=== PATIENT | female | born 1935 | race Caucasian/White ===

== ENCOUNTER 2020-03-15 11:52 | Inpatient (IN) | payer OTHER ==
--- NOTE | 2020-03-18 14:01 | R.PREADM ---
PRE-ADMISSION SCREENING FORM SCREENING DATE AND TIME 03/18/2020 11:22 (PICTURE FRAME MAKER) ANTICIPATED REHAB ADMISSION DATE 03/20/2020 REFERRING FACILITY [facility] REFERRAL DATE AND TIME 03/18/2020 11:22 (PICTURE FRAME MAKER) REFERRAL ROOM# [id number] ACUTE ADMIT DATE 03/16/2020 Previous Rehabilitation(s): No. 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 Caden Hayward M.D. MR# [id number] NAME MONTY PENALOZA ADDRESS [address] [facility] PHONE [facility] [id number] DATE OF 1935 AGE 84 SSN# [id number] GENDER female MARITAL STATUS RACE unknown race ADMIT FROM 02 - [facility] PRE-HOSPITAL LIVING SETTING 01 - Home (private home/apt. board/care, assisted living, detention, transitional living) HOME TYPE AND DETAILS Type of home: single family house # of levels in the residence: 1 # of steps within the residence: 0 # of steps to enter the residence: 0 PRE-HOSPITAL LIVING WITH Family/Relatives FAMILY SUPPORT Yes PRIMARY FAMILY CONTACT NAME Lucas Penaloza PRIMARY FAMILY CONTACT PHONE PRIMARY FAMILY CONTACT RELATIONSHIP Spouse PHONE PRIMARY FAMILY CONTACT ON ADM.? no IS PRIMARY FAMILY CONTACT AUTH. REP.? no 1ST EMERGENCY CONTACT Lucas Penaloza 1ST CONTACT PHONE 1ST CONTACT RELATIONSHIP Spouse PHONE 1ST CONTACT ON ADM. no IS 1ST CONTACT AUTH. REP.? no PHONE 2ND CONTACT ON ADM.? no PATIENT EMPLOYMENT STATUS Retired (for age) PATIENT EMPLOYER No Employer PAYOR INFORMATION: 1ST PAYOR NAME MEDICARE 1ST PAYOR PHONE 1ST PAYOR INJURY/ILLNESS DUE TO ACCIDENT? No ANOTHER DEMOCRAT RESPONSIBLE? No PRIMARY REHAB/ACUTE DIAGNOSIS: LEFT HIP FRACTURE ONSET DATE 03/12/2020 REHAB IMPAIRMENT CATEGORY (GLADYS): 07 Fracture of LE (FracLE) MEETS 60% rule AFFECTED EXTREMITIES: BLE PRIMARY DIAGNOSIS-RELATED SURGERIES: left hip hemiarthroplasty 03/13/20 SUMMARY OF ACUTE HOSPITALIZATION: Pt. is a 84 yo Right-handed female of unknown race. On 03/12/2020 she was admitted to [facility] with diagnosis CLOSED DISPLACED FX OF LEFT FEMORAL N RASHAD. Her impairment category is Orthopaedic Disorders 08 - Bilateral Hip Fractures (08.12). Pre-morbidly, Pt. was independent/mod-I in Safety Awareness, Social Cognition, and Self-Care; and she had good Sphincter Control, Transfers Control, and Endurance. Currently, she has deficits of Locomotion, Safety Awareness, Balance, Social Cognition, and Transfers Control. Pt. is now referred to [facility] for acute in-patient rehabilitation in order to maximize patient's functional independence in activities of daily living, strength, ROM, and mobi lity. Patient has realistic goal of being discharged at assistance level 7-Ind to reside at Home with Fami ly/Relatives. lashanda Penaloza is a 84 -year- old female that lives at home independently at home. She lives in a single story home with family help when needed. She has a history of HTN, HLD, chronic back pain 2/2 compression fracture, admitted for left hip fracture. Patient had closed displaced fracture of left femoral neck 03/12/20. The patient would most definitely benefit from acute inpatient rehab and has become severely debilitated and unable to live at her prior level of activity at home getting her stronger to be back living at home independently is our goal. It is reasonable and necessary for the patient to come to acute inpatient rehab for approximately 7-10 days in order to return to her prior level of care. She is now being transferred to [facility] Inpatient rehabilitation and is medically stable with relatively stable labs. She is now medically stable but in need of 24 hour nursing, doctor supervision and The patient is reasonably expected to participate in 3 hours of therapy a day/15 hours per week and receive care with intensive interdisciplinary approach. COVID-19 screening performed; spoke with patient via phone. Patient denies new onset of fever, cough, difficulty breathing, sore throat, body aches and non-allergy nasal congestion in the past 24 hours. Patient denies travel outside of [place] in the past 14 days. Patient denies any contact with someone who has a confirmed diagnosis of or is under investigation for COVID-19 in the past 14 days. Patient has been tested negative for COVID- 19. PAST MEDICAL HISTORY HYPERTENSION LEFT HIP PAIN HYPERLIPIDEMIA MYOCARDIAL INFARCTION PAST SURGICAL HISTORY: HYSTERECTOMY EYE SURGERY MEDICATION ALLERGIES: AMLODIPINE ENVIRONMENTAL ALLERGIES: - Substance Allergies None Known - Other Allergies None Known CODE STATUS: Full code WEIGHT/HEIGHT/BMI: WEIGHT 170 lbs HEIGHT 5' 3" BMI 30.1 DIET: - Diet Type Regular - Diet - Solid Texture Regular - Diet - Liquid Texture Regular - Tube Feed N/A REVIEW OF SYSTEMS: - Gen Alert and awake Lying in bed No apparent distress Oriented to: person, time, and place - Vital Signs Temperature: 97.5 F SBP/DBP: 144/64 Pulse: 75 Resp: 18 Vital signs stable, afebrile - CVS RRR VITAL SIGNS Temperature: 97.5 F SBP/DBP: 144/64 Pulse: 75 Resp: 18 Vital signs stable, afebrile MEDICATIONS/TREATMENT: Other- See attached MAR (Medication Administration Record). CURRENT SPHINCTER CONTROL: Pre-hospital bladder status: unspecified # of bladder accidents in the last 7 days prior to screenin Pre-hospital bowel status: unspecified # of bowel accidents in the last 7 days prior to screenin Last Bowel Movement Date: 03/15/2020 CURRENT LOCOMOTION STATUS: distance walked 2 feet USING RW DETAILED CURRENT FUNCTIONAL STATUS: - Bladder accident frequency: Ind - No accidents in the past 7 days - Bowel accident frequency: Ind - No accidents in the past 7 days - Walking score based on distance walked: 0(N/A) score based on distance walked: 1(<=50ft) - Wheelchair score based on distance traveled: 0(N/A) QI SCORES: - Self-Care A. Eating 03-Partial/moderate assistance B. Oral hygiene 03-Partial/moderate assistance C. Toileting hygiene 01-Dependent E. Shower/bathe self 01-Dependent F. Upper body dressing 03-Partial/moderate assistance G. Lower body dressing 01-Dependent H. Putting on/taking off footwear 88-Not attempted due to medical condition or safety concerns - Mobility A. Roll left and right 03-Partial/moderate assistance B. Sit to lying 03-Partial/moderate assistance C. Lying to sitting on side of bed 03-Partial/moderate assistance D. Sit to stand 03-Partial/moderate assistance E. Chair/yol-hu-pvpes transfer 03-Partial/moderate assistance F. Toilet transfer 02-Substantial/maximal assistance G. Car transfer 88-Not attempted due to medical condition or safety concerns I. Walk 10 feet 88-Not attempted due to medical condition or safety concerns J. Walk 50 feet with two turns 88-Not attempted due to medical condition or safety concerns K. Walk 150 feet 88-Not attempted due to medical condition or safety concerns L. Walking 10 feet on uneven surfaces 88-Not attempted due to medical condition or safety concerns M. 1 step (curb) 88-Not attempted due to medical condition or safety concerns N. 4 steps 88-Not attempted due to medical condition or safety concerns O. 12 steps 88-Not attempted due to medical condition or safety concerns P. Picking up object 88-Not attempted due to medical condition or safety concerns R. Wheel 50 feet with two turns 88-Not attempted due to medical condition or safety concerns S. Wheel 150 feet 88-Not attempted due to medical condition or safety concerns - Bladder and Bowel Bladder continence Bowel continence - Endurance Fair - Balance Fair - Safety Awareness Fair CURRENT FUNC. DEFICITS: Self-Care, Mobility, Endurance, Balance, and Safety Awareness CURRENT / PREVIOUS ASSISTIVE DEVICES: 3-in-1 Commode Rolling Walker Tub Bench HISTORY OF FALLS. HAS THE PATIENT HAD TWO OR MORE FALLS IN THE PAST YEAR OR ANY FALL WITH INJURY IN T HE PAST YEAR?: No PRIOR SURGERY. DID THE PATIENT HAVE MAJOR SURGERY DURING THE 100 DAYS PRIOR TO ADMISSION?: No THERAPY NOTES FROM ACUTE CARE: Attached. SPECIAL NEEDS: - Safety Concerns Skin breakdown precautions needed due to skin breakdown risk PRECAUTIONS: - Anterior Hip Precaution No abduction No active extension No adduction across midline No external rotation No hip flexion >90 degrees No internal rotation - Posterior Hip Precaution No adduction across midline No external rotation No hip flexion >90 degrees No internal rotation No wheel chair propulsion - Weight Bearing Precaution WBAT,LEFT , LE PATIENT NEEDS ACTIVE AND ONGOING THERAPEUTIC INTERVENTION OF MULTIPLE THERAPY DISCIPLINES, INCLUDING: - Dietary and Nutrition Adequate Nutrition. Nutritional Education. Nutritional Supplements. PATIENT NEEDS CLOSE MEDICAL SUPERVISION BY A REHABILITATION PHYSICIAN FOR: Coordination of Treatment Team PATIENT REQUIRES 24X7 REHAB NURSING FOR MEDICAL AND FUNCTIONAL MGT. OF THE FOLLOWING DEFICITS: Disease Management Medication Management Patient/Family Education Providing Safe Environment PATIENT REQUIRES INTENSIVE, COORDINATED INTERDISCIPLINARY APPROACH TO REHAB: Arranging Home Equipment/Services Discharge Planning Family Intervention/Training Electrical Checkout Mechanic/Case Management PATIENT REHAB POTENTIAL: Mildred PENALOZA is able and expected to receive 3 hours of individualized therapy daily on at least 5 of ever y 7 days Mildred PENALOZA's prognosis for significant practical improvement within a reasonable period of time appears Good Expected level of measurable improvement will be of a practical value to Mildred WOODSs functional capacit y or adaptations to impairments Has a viable Discharge Plan Medically appropriate; condition is sufficiently stable to participate in intensive rehab program DISCHARGE PLAN: - Estimated Length of Stay (days) 14. - Consensus on plan Discharge plan has been discussed with primary caregiver. Patient/Family is in agreement with the myrna n. Primary caregiver is in agreement with the plan. - Patient/Family Goals Return home independently. - Planned Living Setting Upon Discharge Home, to live with Family/Relatives. Transitional Living. RECOMMENDED CARE LEVEL: IRF RECOMMENDATION DETAILS: Recommended Admission to Comprehensive Rehabilitation Program to Increase Functional [place] SCREENER'S COMPLETENESS CONFIRMATION: - Screening Confirmation The patient data collection on this preadmission screening form is finished PHYSICIANS REVIEW AND ADMISSION DETERMINATION Admit - Based on my review of the Pre-Admission Screening results, in my medical judgment and experie nce, I concur with the findings and recommend admission to [facility], as this patient requires an IRF level of care. SIGNATURE PANEL: Watermelon Inspector - [electronically] signed by Wes Resendiz on 03/18/2020 at 11:22 (PICTURE FRAME MAKER) Watermelon Inspector - [electronically] signed by Rigo De León PT on 03/18/2020 at 12:56 (PICTURE FRAME MAKER) Physician Reviewer - [electronically] signed by Dr. Caden Hayward M.D. on 03/18/2020 at 14:01 (PICTURE FRAME MAKER )
--- OUTSIDE RECORDS SUMMARY | 2020-03-18 19:53 | XMS REPORT | Summary of Care ---
:1935 Author Organization [facility] - Health Address [address] [place] [address] Care Team Providers Name Role Phone MD Franco Primary Care Provider Encounter Details Date Type Department Care Team Description 02/11/2020 Orders Only [facility] Doctor Unassigned, No [address] [place] [address] [address] [place] [address] Allergies Active Allergy Reactions Severity Noted Date Comments Amlodipine Unknown - See comments 01/20/2015 documented as of this encounter (statuses as of 02/11/2020) Medications Medication Sig Dispensed Refills Start Date End Date Status aspirin (ASPIRIN LOW Take 81 mg by 0 Active DOSE) 81 mg EC tablet mouth daily. sodium chloride 1 gram Take 1 g by 0 Active tablet mouth 2 (two) times daily. cloNIDine 0.1 mg TAKE 1 TABLET BY 270 tablet 1 09/04/2019 Active tabletIndications: MOUTH THREE Essential hypertension TIMES A DAY carvediloL 12.5 mg Take 1 tablet by 270 tablet 3 09/04/2019 Active tabletIndications: mouth 3 (three) Essential hypertension times daily with meals. furosemide 40 mg Take 1 tablet by 90 tablet 1 09/04/2019 Active tabletIndications: mouth daily. Essential hypertension valsartan 160 mg Take 1 tablet by 90 tablet 1 09/23/2019 Active tabletIndications: mouth daily. Essential hypertension hydrALAZINE 25 mg Take 1 tablet by 90 tablet 2 09/23/2019 Active tabletIndications: mouth 2 (two) Hyperlipidemia, times daily. unspecified hyperlipidemia type lovastatin 20 mg TAKE 1 TABLET BY 90 tablet 1 09/23/2019 Active tabletIndications: MOUTH ONCE A DAY Hyperlipidemia, - MUST BE SEEN unspecified FOR FURTHER hyperlipidemia type REFILLS documented as of this encounter (statuses as of 02/11/2020) Active Problems Problem Noted Date Hypertensive urgency 09/23/2019 Chest pain 09/22/2019 Dermatitis 07/01/2019 Right knee pain 08/28/2016 Obesity (BMI 30-39.9) 04/06/2016 Weakness 04/06/2016 Left hip pain 02/11/2016 Essential hypertension 01/15/2015 Hyperlipidemia 01/15/2015 Anemia B twelve deficiency 01/15/2015 Malaise 01/15/2015 Fatigue 01/15/2015 Upper respiratory infection 01/15/2015 documented as of this encounter (statuses as of 02/11/2020) Immunizations Name Administration Dates Next Due Influenza High Dose 12/14/2018, 12/14/2016 Pneumococcal 13 Conjugate, PCV13 (Prevnar 13) 12/14/2016, Pneumococcal Polysaccharide, PPSV23 (PNEUMOVAX) 12/14/2018 documented as of this encounter Social History Tobacco Use Types Packs/Day Years Used Date Never Smoker Smokeless Tobacco: Never Used Alcohol Use Drinks/Week oz/Week Comments Yes 2 Glasses of wine 4.0 2 Cans of beer Sex Assigned at Date Recorded Not on file documented as of this encounter Last Filed Vital Signs Not on filedocumented in this encounter Plan of Treatment Date Type Specialty Care Team Description 02/11/2020 General Ophthalmologist Visit Phlebotomy Ewa Cisneros MD [address] [place] [address] [phone] Pob, Adc Lab Main Health Maintenance Due Date Last Done Comments Depression Screening 1947 DTaP,Tdap,and Td Vaccines (1 - Tdap) 1954 Zoster Recombinant Vaccine (SHINGRIX) 1985 (1 of 2) Osteoporosis Screening 2000 Medicare Wellness Visit 12/14/2017 12/14/2016 INFLUENZA VACCINE (#1) 2019 12/14/2018, 12/14/2016 PNEUMOCOCCAL VACCINES 65+ Completed 12/14/2018, 12/14/2016 , 02/22/2015 documented as of this encounter Procedures Procedure Name Priority Date/Time Associated Diagnosis Comme nts CONSENT/REFUSAL FOR Routine 02/11/2020 11:24 AM DIAGNOSIS AND TREATMENT 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 Medicare A & B ent [phone] [id number] [place] [address] COMMERCIAL COMMERCIAL [id number] 2009-Pres HMO/ PPO/POS NON-CONTRACT NON-CONTRACT ent GENERIC GENERIC documented as of this encounter
--- OUTSIDE RECORDS SUMMARY | 2020-03-18 19:53 | XMS REPORT | Summary of Care ---
:1935 Author Organization [facility] - Health Address [address] [place] [address] Care Team Providers Name Role Phone MD Franco Primary Care Provider Encounter Details Date Type Department Care Team Description 12/04/2019 Orders Only [facility] Doctor Unassigned, No [address] [facility] [place] [address] [address] [place] [address] Allergies Active Allergy Reactions Severity Noted Date Comments Amlodipine Unknown - See comments 01/20/2015 documented as of this encounter (statuses as of 12/22/2019) Medications Medication Sig Dispensed Refills Start Date [...] as of this encounter (statuses as of 12/22/2019) Active Problems Problem Noted Date Hypertensive urgency 09/23/2019 Chest pain 09/22/2019 Dermatitis 07/01/2019 Right knee pain 08/28/2016 Obesity (BMI 30-39.9) 04/06/2016 Weakness 04/06/2016 Left hip pain 02/11/2016 Essential hypertension 01/15/2015 Hyperlipidemia 01/15/2015 Anemia B twelve deficiency 01/15/2015 Malaise 01/15/2015 Fatigue 01/15/2015 Upper respiratory infection 01/15/2015 documented as of this encounter (statuses as of 12/22/2019) Immunizations Name Administration Dates Next Due Influenza [...] filedocumented in this encounter Plan of Treatment Health Maintenance Due Date Last Done Comments Depression Screening 1947 DTaP,Tdap,and Td Vaccines (1 - Tdap) 1954 Zoster Recombinant Vaccine (SHINGRIX) 1985 (1 of 2) Osteoporosis Screening 2000 Medicare Wellness Visit 12/14/2017 12/14/2016 INFLUENZA VACCINE (#1) 2019 12/14/2018, 12/14/2016 PNEUMOCOCCAL VACCINES 65+ Completed 12/14/2018, 12/14/2016 , 02/22/2015 documented as of this encounter Procedures Procedure Name Priority Date/Time Associated Diagnosis Comme nts REFERRAL- Routine 12/04/2019 12:01 AM CDT REQUEST/RESPONSE documented in this encounter Results Not on filedocumented in this encounter Insurance Payer Benefit Plan / Subscriber ID Effective Phone Address T ype Group Dates MEDICARE MEDICARE PART [id number] 2000-Pres [phone] Medicare A & B ent [phone] [id number] [place] [id number] COMMERCIAL COMMERCIAL [id number] 2009-Pres HMO/ PPO/POS NON-CONTRACT NON-CONTRACT ent GENERIC GENERIC documented as of this encounter
--- OUTSIDE RECORDS SUMMARY | 2020-03-18 19:54 | XMS REPORT | Summary of Care ---
:1935 Author Organization [facility] Address [address] [place] [address] Care Team Providers Name Role Phone MD Franco Primary Care Provider Reason for Visit Reason Comments LAB WORK Auth/Cert Status Reason Specialty Diagnoses / Procedures Referred By C ontact Referred To Contact Phlebotomy Diagnoses Hyposmolality syndrome Hyposmolality syndrome Adc Pob Lab Draw Procedures URINE Professional Office Building [address] [place] [address] , [address] [place] [address] Phone: Fax: Encounter Details Date Type Department Care Team Description 02/16/2020 Supervisor Covering And Lining Visit [facility] Ewa Cisneros MD [address] [place] [address] [place] [address] Hyposmolality syndrome; Professional Pob, Adc Lab Main Proteinuria, unspecified type; Office Building Hypopotassem ia; Phlebotomy Lab Secondary hyperparathyroidis m of renal origin; Professional Vitamin D defic iency; Office Building Stage 3 chronic kidney disea se, unspecified whether stage 3a or 3b CKD [address] [facility] , [address] [place] [address] Allergies Active Allergy Reactions Severity Noted Date Comments Amlodipine Unknown - See comments 01/20/2015 documented as of this encounter (statuses as of 02/16/2020) Medications Medication Sig Dispensed Refills Start Date [...] as of this encounter (statuses as of 02/16/2020) Active Problems Problem Noted Date Hypertensive urgency 09/23/2019 Chest pain 09/22/2019 Dermatitis 07/01/2019 Right knee pain 08/28/2016 Obesity (BMI 30-39.9) 04/06/2016 Weakness 04/06/2016 Left hip pain 02/11/2016 Essential hypertension 01/15/2015 Hyperlipidemia 01/15/2015 Anemia B twelve deficiency 01/15/2015 Malaise 01/15/2015 Fatigue 01/15/2015 Upper respiratory infection 01/15/2015 documented as of this encounter (statuses as of 02/16/2020) Immunizations Name Administration Dates Next Due Influenza [...] Assigned at Date Recorded Not on file COVID-19 Exposure Response Date Recorded In the last month, have you been in contact with No / Unsure 02/11/2020 11:24 AM FLASH OVEN OPERATOR someone who was confirmed or suspected to have Coronavirus / COVID-19? documented as of this encounter Last Filed Vital Signs Not on filedocumented in this encounter Nursing Notes Tavia Lu - 02/16/2020 7:45 AM CST Patient presented with specimen for drop-off and was identified by and name. Collection information/ total volume were documented accordingly. The [facility] on 02/16/20: 24 hour urine 1 Random urine Stool Swab Other T.v 2000 H OVEN OPERATOR documented in this encounter Plan of Treatment Health Maintenance Due Date Last Done Comments Depression Screening 1947 DTaP,Tdap,and Td Vaccines (1 - Tdap) 1954 Zoster Recombinant Vaccine (SHINGRIX) 1985 (1 of 2) Osteoporosis Screening 2000 Medicare Wellness Visit 12/14/2017 12/14/2016 INFLUENZA VACCINE (#1) 2019 12/14/2018, 12/14/2016 PNEUMOCOCCAL VACCINES 65+ Completed 12/14/2018, 12/14/2016 , 02/22/2015 documented as of this encounter Results Not on filedocumented in this encounter Visit Diagnoses Diagnosis Hyposmolality syndrome Hyposmolality and/or hyponatremia Proteinuria, unspecified type Hypopotassemia Secondary hyperparathyroidism of renal o rigin Secondary hyperparathyroidism (of renal origin) Vitamin D deficiency Unspecified vitamin D deficiency Stage 3 chronic kidney disease, unspecif ied whether stage 3a or 3b CKD documented in this encounter Insurance Payer Benefit Plan / Subscriber ID Effective Phone Address T ype Group Dates MEDICARE MEDICARE PART [id number] 2000-Pres [phone] Medicare A & B ent [phone] [id number] [place] [id number] COMMERCIAL COMMERCIAL [id number] 2009-Pres HMO/ PPO/POS NON-CONTRACT NON-CONTRACT ent GENERIC GENERIC documented as of this encounter
--- OUTSIDE RECORDS SUMMARY | 2020-03-18 19:54 | XMS REPORT | Summary of Care ---
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 [facility] Ewa Cisneros MD [address] [place] [address] [facility] [place] [place] [address] Hyposmolality syndrome (Primary Dx); Professional Pob, Adc Lab Main Proteinuria, unspecified type; Office Building Hypopotassem ia; Phlebotomy Lab Secondary hyperparathyroidis m of renal origin; Professional Vitamin D defic iency; Office Building Stage 3 chronic kidney disea se, unspecified whether stage 3a or 3b CKD [address] [facility] , [address] [place] [address] Allergies Active Allergy Reactions Severity [...] with No / Unsure 02/11/2020 11:24 AM 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 documented as of this encounter Last Filed Vital Signs Not on filedocumented in this encounter Nursing Notes Garrett Menezes - 02/11/2020 11:30 AM CST Venipuncture collection performed by clean technique on the left anticubitus. Total of 1 attempts were made. Slight pressure and a bandage/dressing were applied to the site(s). The patient experienced no complications. The following specimens were processed according to instructions and sent to [email or web address] laboratories per lab order on today: LT BLUE SST 3 RED LAV PPT DK GREEN (LiHep) DK GREEN (SodH) COLEMAN DK BLUE (K2) DK BLUE (S) ACD Blood Culture NIPT/NTD Patient has been identified by and name and was provided with cup, antiseptic towelette, and clean catch instructions. 2 urine specimen(s) sent. Unpreserved 2 Urine Culture Aptima tube Other urine documented in this encounter Plan of Treatment Name Type Priority Associated Diagnoses Date/Ti me BASIC METABOLIC PANEL LAB Routine Hyposmolal ity syndrome 02/11/2020 11:49 AM (NA, K, CL, CO2, Proteinuria, un specified type CHROME PLATER GLUCOSE, BUN, Hypopotassemia CREATININE, CA) Secondary hyperparathyroi dism of renal origin Vitamin D defici ency Stage 3 chronic kidney disease, unspecified whether stage 3a or 3b CKD ALBUMIN LAB Routine [facility] 02/11/2020 11:49 AM Proteinuria, uns pecified type CHROME PLATER Hypopotassemia Secondary hyperparathyroidis m of renal origin Vitamin D defici ency Stage 3 chronic kidney disease, unspecified whether stage 3a or 3b CKD PHOSPHORUS LAB Routine [facility] 02/11/2020 11:49 AM Proteinuria, uns pecified type CHROME PLATER Hypopotassemia Secondary hyperparathyroidis m of renal origin Vitamin D defici ency Stage 3 chronic kidney disease, unspecified whether stage 3a or 3b CKD URIC ACID LAB Routine Hyposmolality [facility] 02/11/2020 11:49 AM Proteinuria, uns pecified type CHROME PLATER Hypopotassemia Secondary hyperparathyroidis m of renal origin Vitamin D defici ency Stage 3 chronic kidney disease, unspecified whether stage 3a or 3b CKD URINALYSIS LAB Routine Hyposmolality sy ndrome 02/11/2020 12:00 PM Proteinuria, uns pecified type CHROME PLATER Hypopotassemia Secondary hyperparathyroidis m of renal origin Vitamin D defici ency Stage 3 chronic kidney disease, unspecified whether stage 3a or 3b CKD TOTAL PROTEIN, URINE LAB Routine Hyposmolali ty syndrome 02/11/2020 12:00 PM RANDOM Proteinuria, uns pecified type CHROME PLATER Hypopotassemia Secondary hyperparathyroidis m of renal origin Vitamin D defici ency Stage 3 chronic kidney disease, unspecified whether stage 3a or 3b CKD CREATININE, URINE LAB Routine Hyposmolality syndrome 02/11/2020 12:00 PM RANDOM Proteinuria, uns pecified type CHROME PLATER Hypopotassemia Secondary hyperparathyroidis m of renal origin Vitamin D defici ency Stage 3 chronic kidney disease, unspecified whether stage 3a or 3b CKD INTACT PTH CALCIUM LAB Routine Hyposmolality syndrome 02/11/2020 11:49 AM GROUP Proteinuria, uns pecified type CHROME PLATER Hypopotassemia Secondary hyperparathyroidis m of renal origin Vitamin D defici ency Stage 3 chronic kidney disease, unspecified whether stage 3a or 3b CKD VITAMIN D, 25-OH LAB Routine Hyposmolality s yndrome 02/11/2020 11:49 AM Proteinuria, uns pecified type CHROME PLATER Hypopotassemia Secondary hyperparathyroidis m of renal origin Vitamin D defici ency Stage 3 chronic kidney disease, unspecified whether stage 3a or 3b CKD Name Type Priority Associated Diagnoses Order S chedule BASIC METABOLIC PANEL LAB Routine Hyposmolal ity syndrome Expected: (NA, K, CL, CO2, Proteinuria, un specified type 02/11/2020, GLUCOSE, BUN, Hypopotassemia Expires: CREATININE, CA) Secondary hyperparathyroi dism 02/10/2021 of renal origin Vitamin D defici ency Stage 3 chronic kidney disease, unspecified whether stage 3a or 3b CKD ALBUMIN LAB Routine Hyposmolality sy ndrome Expected: Proteinuria, uns pecified type 02/11/2020, Hypopotassemia Expires: Secondary hyperparathyroidis m 02/10/2021 of renal origin Vitamin D defici ency Stage 3 chronic kidney disease, unspecified whether stage 3a or 3b CKD PHOSPHORUS LAB Routine Hyposmolality sy ndrome Expected: Proteinuria, uns pecified type 02/11/2020, Hypopotassemia Expires: Secondary hyperparathyroidis m 02/10/2021 of renal origin Vitamin D defici ency Stage 3 chronic kidney disease, unspecified whether stage 3a or 3b CKD URIC ACID LAB Routine Hyposmolality sy ndrome Expected: Proteinuria, uns pecified type 02/11/2020, Hypopotassemia Expires: Secondary hyperparathyroidis m 02/10/2021 of renal origin Vitamin D defici ency Stage 3 chronic kidney disease, unspecified whether stage 3a or 3b CKD URINALYSIS LAB Routine Hyposmolality sy ndrome Expected: Proteinuria, uns pecified type 02/11/2020, Hypopotassemia Expires: Secondary hyperparathyroidis m 02/10/2021 of renal origin Vitamin D defici ency Stage 3 chronic kidney disease, unspecified whether stage 3a or 3b CKD TOTAL PROTEIN, URINE LAB Routine Hyposmolali ty syndrome Expected: RANDOM Proteinuria, uns pecified type 02/11/2020, Hypopotassemia Expires: Secondary hyperparathyroidis m 02/10/2021 of renal origin Vitamin D defici ency Stage 3 chronic kidney disease, unspecified whether stage 3a or 3b CKD CREATININE, URINE LAB Routine Hyposmolality syndrome Expected: RANDOM Proteinuria, uns pecified type 02/11/2020, Hypopotassemia Expires: Secondary hyperparathyroidis m 02/10/2021 of renal origin Vitamin D defici ency Stage 3 chronic kidney disease, unspecified whether stage 3a or 3b CKD MICROALBUMIN URINE LAB Routine Hyposmolality syndrome Expected: Proteinuria, uns pecified type 02/11/2020, Hypopotassemia Expires: Secondary hyperparathyroidis m 02/10/2021 of renal origin Vitamin D defici ency Stage 3 chronic kidney disease, unspecified whether stage 3a or 3b CKD INTACT PTH CALCIUM LAB Routine Hyposmolality syndrome Expected: GROUP Proteinuria, uns pecified type 02/11/2020, Hypopotassemia Expires: Secondary hyperparathyroidis m 02/10/2021 of renal origin Vitamin D defici ency Stage 3 chronic kidney disease, unspecified whether stage 3a or 3b CKD VITAMIN D, 25-OH LAB Routine Hyposmolality s yndrome Expected: Proteinuria, uns pecified type 02/11/2020, Hypopotassemia Expires: Secondary hyperparathyroidis m 02/10/2021 of renal origin Vitamin D defici ency Stage 3 chronic kidney disease, unspecified whether stage 3a or 3b CKD OSMOLALITY URINE LAB Routine Hyposmolality s yndrome Expected: Proteinuria, uns pecified type 02/11/2020, Hypopotassemia Expires: Secondary hyperparathyroidis m 02/10/2021 of renal origin Vitamin D defici ency Stage 3 chronic kidney disease, unspecified whether stage 3a or 3b CKD SODIUM URINE LAB Routine Hyposmolality sy ndrome Expected: Proteinuria, uns pecified type 02/11/2020, Hypopotassemia Expires: Secondary hyperparathyroidis m 02/10/2021 of renal origin Vitamin D defici ency Stage 3 chronic kidney disease, unspecified whether stage 3a or 3b CKD POTASSIUM URINE LAB Routine Hyposmolality sy ndrome Expected: Proteinuria, uns pecified type 02/11/2020, Hypopotassemia Expires: Secondary hyperparathyroidis m 02/10/2021 of renal origin Vitamin D defici ency Stage 3 chronic kidney disease, unspecified whether stage 3a or 3b CKD Health Maintenance Due Date Last Done Comments [...] this encounter Visit Diagnoses Diagnosis Hyposmolality syndrome - Primary Hyposmolality and/or hyponatremia Proteinuria, unspecified type Hypopotassemia Secondary hyperparathyroidism of renal o rigin Secondary hyperparathyroidism (of renal origin) Vitamin D deficiency Unspecified vitamin D deficiency Stage 3 chronic kidney disease, unspecif ied whether stage 3a or 3b CKD documented in this encounter Insurance Payer Benefit Plan / Subscriber ID Effective Phone Address [facility] Group Dates MEDICARE MEDICARE PART [id number] 2000-Pres [phone] Medicare A & B ent [id number] [place] [id number] COMMERCIAL COMMERCIAL [id number] 2009- HMO/ PPO/POS NON-CONTRACT NON-CONTRACT ent GENERIC GENERIC documented as of this encounter
--- OUTSIDE RECORDS SUMMARY | 2020-03-18 19:54 | XMS REPORT | Summary of Care ---
:1935 Author Organization [facility] Address [address] [place] [address] Care Team Providers Name Role Phone MD Franco Primary Care Provider Reason for Visit Reason Comments LAB WORK Auth/Cert Status Reason Specialty Diagnoses / Procedures Referred By C ontact Referred To Contact Phlebotomy Diagnoses Hyposmolality syndrome Hyposmolality syndrome Adc Pob Lab Draw Procedures URINE Professional Office Building [address] [place] [address] , [address] [place] [address] Phone: Fax: Encounter Details Date Type Department Care Team Description 02/16/2020 Band 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 documented as of this encounter Last Filed Vital Signs Not on filedocumented in this encounter Nursing Notes Tavia Lu - 02/16/2020 7:45 AM CST Patient presented with specimen for drop-off and was identified by and name. Collection information/ total volume were documented accordingly. The following specimens were sent to [facility] laboratoriesper lab order on 02/16/20: 24 hour urine 1 Random urine Stool Swab Other T.v 2000 TAL PUBLISHING SPECIALIST documented in this encounter Plan of Treatment Name Type Priority Associated Diagnoses Date/Ti me SODIUM URINE LAB Routine Hyposmolality sy ndrome 02/16/2020 7:41 AM Proteinuria, uns pecified type DIGITAL PUBLISHING SPECIALIST Hypopotassemia Secondary hyperparathyroidis m of renal origin Vitamin D defici ency Stage 3 chronic kidney disea se, unspecified whether stage 3a or 3b CKD POTASSIUM URINE LAB Routine Hyposmolality sy ndrome 02/16/2020 7:41 AM Proteinuria, uns pecified type DIGITAL PUBLISHING SPECIALIST Hypopotassemia Secondary hyperparathyroidis m of renal origin Vitamin D defici ency Stage 3 chronic kidney disea se, unspecified [...] T ype Group Dates MEDICARE MEDICARE PART [id number] 2000-Pres [phone] Medicare A & B ent [id number] [place] [id number] COMMERCIAL COMMERCIAL [id number] 2009-Pres HMO/ PPO/POS NON-CONTRACT NON-CONTRACT ent GENERIC GENERIC documented as of this encounter
--- OUTSIDE RECORDS SUMMARY | 2020-03-18 19:54 | XMS REPORT | Summary of Care ---
:1935 Author Organization [facility] Address [address] [place] [address] Care Team Providers Name Role Phone MD Franco Primary Care Provider Reason for Visit Reason Comments LAB WORK Auth/Cert Status Reason Specialty Diagnoses / Procedures Referred By C ontact Referred To Contact Phlebotomy Diagnoses Hyposmolality syndrome Hyposmolality syndrome Adc Pob Lab Draw Procedures URINE Professional Office Building [address] [place] [address] , [address] [place] [address] Phone: Fax: Encounter Details Date Type Department Care Team Description 02/16/2020 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 [facility] Ewa Cisneros MD [address] [place] [address] [facility] [place] [address] Hyposmolality syndrome; Professional Pob, Adc Lab Main Proteinuria, unspecified type; Office Building Hypopotassem ia; Phlebotomy Lab Secondary hyperparathyroidis m of renal origin; Professional Vitamin D defic iency; Office Building Stage 3 chronic kidney disea se, unspecified whether stage 3a or 3b CKD [address] [facility] , [address] [place] [address] Allergies Active Allergy Reactions Severity [...] with No / Unsure 02/11/2020 11:24 AM 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 documented as of this encounter Last Filed Vital Signs Not on filedocumented in this encounter Nursing Notes Tavia Lu - 02/16/2020 7:45 AM CST Patient presented with specimen for drop-off and was identified by and name. Collection information/ total volume were documented accordingly. The following specimens were [facility] to [facility] laboratoriesper lab order on 02/16/20: 24 hour urine 1 Random urine Stool Swab Other T.v 2000 AGE HANDLER documented in this encounter Plan of Treatment Name Type Priority Associated Diagnoses Date/Ti me OSMOLALITY URINE LAB Routine Hyposmolality s yndrome 02/16/2020 7:41 AM Proteinuria, uns pecified type PACKAGE HANDLER Hypopotassemia Secondary hyperparathyroidis m of renal origin Vitamin D defici ency Stage 3 chronic kidney disea se, unspecified whether stage 3a or 3b CKD SODIUM URINE LAB Routine Hyposmolality sy ndrome 02/16/2020 7:41 AM Proteinuria, uns pecified type PACKAGE HANDLER Hypopotassemia Secondary hyperparathyroidis m of renal origin Vitamin D defici ency Stage 3 chronic kidney disea se, unspecified whether stage 3a or 3b CKD POTASSIUM URINE LAB Routine Hyposmolality sy ndrome 02/16/2020 7:41 AM Proteinuria, uns pecified type PACKAGE HANDLER Hypopotassemia Secondary hyperparathyroidis m of renal origin [...] T ype Group Dates MEDICARE MEDICARE PART [id number] 2000-Pres [phone] Medicare A & B ent [id number] [place] [id number] COMMERCIAL COMMERCIAL [id number] 2009-Pres HMO/ PPO/POS NON-CONTRACT NON-CONTRACT ent GENERIC GENERIC documented as of this encounter
--- OUTSIDE RECORDS SUMMARY | 2020-03-18 19:54 | XMS REPORT | Summary of Care ---
:1935 Author Organization [facility] Address [address] [place] [address] Care Team Providers Name Role Phone MD Franco Primary Care Provider Reason for Visit Reason Comments LAB WORK Encounter Details Date Type Department Care Team Description 02/16/2020 Spa Receptionist Visit [facility] Ewa Cisneros MD [address] [place] [address] [place] [address] Hyposmolality syndrome; Professional Pob, Adc Lab Main Proteinuria, unspecified type; Office Building Hypopotassem ia; Phlebotomy Lab Secondary hyperparathyroidis m of renal origin; Professional Vitamin D defic iency; Office Building Stage 3 chronic kidney disea se, unspecified whether stage 3a or 3b CKD [address] [place] [address] , [address] [place] [address] Allergies Active Allergy Reactions Severity [...] with No / Unsure 02/11/2020 11:24 AM 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 documented as of this encounter Last Filed Vital Signs Not on filedocumented in this encounter Nursing Notes Tavia Lu - 02/16/2020 7:45 AM CST Patient presented with specimen for drop-off and was identified by and name. Collection information/ total volume were documented accordingly. The following specimens were sent to [facility] laboratoriesper lab order on 02/16/20: 24 hour urine 1 Random urine Stool Swab Other T.v 2000 TEACHER documented in this encounter Plan of Treatment Name Type Priority Associated Diagnoses Date/Ti me MICROALBUMIN URINE LAB Routine Hyposmolality syndrome 02/16/2020 7:41 AM Proteinuria, uns pecified type SLP TEACHER Hypopotassemia Secondary hyperparathyroidis m of renal origin Vitamin D defici ency Stage 3 chronic kidney disea se, unspecified whether stage 3a or 3b CKD OSMOLALITY URINE LAB Routine Hyposmolality s yndrome 02/16/2020 7:41 AM Proteinuria, uns pecified type SLP TEACHER Hypopotassemia Secondary hyperparathyroidis m of renal origin Vitamin D defici ency Stage 3 chronic kidney disea se, unspecified whether stage 3a or 3b CKD SODIUM URINE LAB Routine Hyposmolality sy ndrome 02/16/2020 7:41 AM Proteinuria, uns pecified type SLP TEACHER Hypopotassemia Secondary hyperparathyroidis m of renal origin Vitamin D defici ency Stage 3 chronic kidney disea se, unspecified whether stage 3a or 3b CKD POTASSIUM URINE LAB Routine Hyposmolality sy ndrome 02/16/2020 7:41 AM Proteinuria, uns pecified type SLP TEACHER Hypopotassemia Secondary hyperparathyroidis m of renal origin [...] T ype Group Dates MEDICARE MEDICARE PART [id number] 2000-Pres [phone] Medicare A & B ent [id number] [place] [id number] COMMERCIAL COMMERCIAL [id number] 2009-Pres HMO/ PPO/POS NON-CONTRACT NON-CONTRACT ent GENERIC GENERIC documented as of this encounter
--- OUTSIDE RECORDS SUMMARY | 2020-03-18 19:55 | XMS REPORT | Summary of Care ---
:1935 Author Organization [facility] Address [address] [place] [address] Care Team Providers Name Role Phone MD Franco Primary Care Provider Reason for Visit Reason Comments HAVE NO APPETITE Hip Pain right rating a 1010 Encounter Details Date Type Department Care Team Description 03/08/2020 Office Visit [facility] Family Sammy Gamez MD Acute right-sided low Medicine - [place] [address] back pain without [address] sciatica (Primary Dx) [place] [phone] Allergies Active Allergy Reactions Severity Noted Date Comments Amlodipine Unknown - See comments 01/20/2015 documented as of this encounter (statuses as of 03/09/2020) Medications Medication Sig Dispensed Refills Start Date [...] SEEN unspecified FOR FURTHER hyperlipidemia type REFILLS methylPREDNISolone Take 21 tablets 21 Each 0 02/16/2020 Active (MEDROL, GILDA,) 4 mg by mouth tabletsIndications: SEE-INSTRUCTIONS Acute right-sided low . follow package back pain without directions sciatica oxyCODONE-acetaminophen Take 1 tablet by 20 tablet 0 1 Active 7.5-325 mg per mouth every 4 1 tabletIndications: acute (four) hours as pain needed for Pain for up to 7 days. Indications: acute pain Hospital, Clinic, or Other Ordered Dose Route Frequency Start Date End Date Status Facility Administered Medication Ketorolac Tromethamine 60 mg IM ONCE 03/08/20202020 Ended (TORADOL) injection syringe 60 mg documented as of this encounter (statuses as of 03/09/2020) Active Problems Problem Noted Date Hypertensive urgency 09/23/2019 Chest pain 09/22/2019 Dermatitis 07/01/2019 Right knee pain 08/28/2016 Obesity (BMI 30-39.9) 04/06/2016 Weakness 04/06/2016 Left hip pain 02/11/2016 Essential hypertension 01/15/2015 Hyperlipidemia 01/15/2015 Anemia B twelve deficiency 01/15/2015 Malaise 01/15/2015 Fatigue 01/15/2015 Upper respiratory infection 01/15/2015 documented as of this encounter (statuses as of 03/09/2020) Immunizations Name Administration Dates Next Due Influenza High Dose 12/10/2018, 12/11/2017, 12/14/2016 Influenza High Dose Quad 11/04/2019 Pneumococcal 13 Conjugate, PCV13 (Prevnar 12/10/2018, 2016, 02/22/2015 13) Pneumococcal Polysaccharide, PPSV23 12/14/2018 (PNEUMOVAX) documented as of this encounter Social History Tobacco Use Types Packs/Day Years Used Date Never Smoker Smokeless Tobacco: Never Used Alcohol Use Drinks/Week oz/Week Comments Yes 2 Glasses of wine 4.0 2 Cans of beer Sex Assigned at Date Recorded Not on file COVID-19 Exposure Response Date Recorded In the last month, have you been in contact with No / Unsure 02/16/2020 2:28 PM WASTE RECYCLER someone who was confirmed or suspected to have Coronavirus / COVID-19? documented as of this encounter Last Filed Vital Signs Vital Sign Reading Time Taken Comments Blood Pressure 160/70 03/08/2020 3:27 PM in severe pa in in WASTE RECYCLER right hip Pulse - - Temperature - - Respiratory Rate - - Oxygen Saturation - - Inhaled Oxygen - - Concentration Weight 71.7 kg (158 lb) 03/08/2020 3:27 PM WASTE RECYCLER Height - - Body Mass Index 27.99 02/16/2020 2:21 PM WASTE RECYCLER documented in this encounter Progress Notes Maxime Gamez MD - 03/08/2020 3:15 PM CST Cc: pain Low back Chief Complaint Patient presents with HAVE NO APPETITE Hip Pain right rating a 10/10 Stephanie [facility] is a 84 [facility] female. Pain low back, started midline, has shifted to the . [facility] neurosurgery appointment in 2 days Allergies Stephanie is allergic to amlodipine. Medications Outpatient Medications Prior to Visit Medication Sig Dispense Refill hydrALAZINE 25 mg tablet Take 1 tablet by mouth 2 (two) times daily. 90 tablet 2 lovastatin 20 mg tablet TAKE 1 TABLET BY MOUTH ONCE A DAY - MUST BE SEEN FOR FURTHER REFILLS 90 tablet 1 valsartan 160 mg tablet Take 1 tablet by mouth daily. 90 tablet 1 cloNIDine 0.1 mg tablet TAKE 1 TABLET BY MOUTH THREE TIMES A DAY 270 tablet 1 furosemide 40 mg tablet Take 1 tablet by mouth daily. 90 tablet 1 methylPREDNISolone (MEDROL, GILDA,) 4 mg tablets Take 21 tablets by mouth SEE- INSTRUCTIONS. followpackage directions 21 Each 0 carvediloL 12.5 mg tablet Take 1 tablet by mouth 3 (three) times daily with meals. 270 tablet 3 sodium chloride 1 gram tablet Take 1 g by mouth 2 (two) times daily. aspirin (ASPIRIN LOW DOSE) 81 mg EC tablet Take 81 mg by mouth daily. No facility-administered medications prior to visit. Histories Past Medical History: Diagnosis Date Hyperlipidemia Hypertension Left hip pain 02/11/2016 Past Surgical History: Procedure Laterality Date EYE SURGERY HYSTERECTOMY Social History Socioeconomic History Marital status: Spouse name: Not on file Number of children: Not on file Years of education: Not on file Highest education level: Not on file Occupational History Not on file Social Needs Financial resource strain: Not on file Food insecurity Worry: Not on file Inability: Not on file Transportation needs Medical: Not on file Non-medical: Not on file Tobacco Use Smoking status: Never Smoker Smokeless tobacco: Never Used Substance and Sexual Activity Alcohol use: Yes Alcohol/week: 4.0 standard drinks Types: 2 Glasses of wine, 2 Cans of beer per week Drug use: No Sexual activity: Not on file Lifestyle Physical activity Days per week: Not on file Minutes per session: Not on file Stress: Not on file Relationships Social connections Talks on phone: Not on file Gets together: Not on file Attends denominational service: Not on file Active member of club or organization: Not on file Attends meetings of clubs or organizations: Not on file Relationship status: Not on file Intimate partner violence Fear of current or ex partner: Not on file Emotionally abused: Not on file Physically abused: Not on file Forced sexual activity: Not on file Other Topics Concern Not on file Social History Narrative Retired- [employer] Family History Problem Relation Age of Onset Heart Mother Cancer Father Review of Systems Vital Signs BP (!) 160/70 | Wt 158 lb (71.7 kg) | BMI 27.99 kg/m Physical Exam Vitals signs reviewed. Constitutional: Appearance: Normal appearance. HENT: Head: Normocephalic. Neck: Musculoskeletal: Normal range of motion. Cardiovascular: Rate and Rhythm: Normal rate and regular rhythm. Pulses: Normal pulses. Heart sounds: Normal heart sounds. Pulmonary: Effort: Pulmonary effort is normal. Breath sounds: Normal breath sounds. Abdominal: General: Abdomen is flat. Musculoskeletal: Comments: Tender R lumhar to hip, no radiculopathy at present Skin: General: Skin is warm. Neurological: General: No focal deficit present. Mental Status: She is alert. Assessment/Plan Severe lumbar pain, NS consult, pain medication, toradol. This visit did not involve counseling and coordination that comprised more than 50% of the visit time. documented in this encounter Plan of Treatment Date Type Specialty Care Team Description 03/11/2020 Imm/Inj Visit [facility] Bubba Webster MD [address] [place], [place] [address] Preventive Medicine Nurse, Shefali Pob Immunization Health Maintenance Due Date Last Done Comments DTaP,Tdap,and Td Vaccines (1 - 1954 Tdap) Zoster Recombinant Vaccine 1985 (SHINGRIX) (1 of 2) Osteoporosis Screening 2000 Medicare Wellness Visit 12/14/2017 12/14/2016 Depression Screening 02/15/2021 02/16/2020 PNEUMOCOCCAL VACCINES 65+ Completed 12/14/2018, 12/10/2018 , 12/14/2016, Additional history exists INFLUENZA VACCINE Completed 11/04/2019, 12/10/2018, 12/11/2017, Additional history exists documented as of this encounter Results Not on filedocumented in this encounter Visit Diagnoses Diagnosis Acute right-sided low back pain without sciatica - Primary documented in this encounter Administered Medications Medication Order MAR Action Action Date Dose Rate Site Ketorolac Tromethamine Given 03/08/2020 4:16 PM 60 mg Right (TORADOL) injection WASTE RECYCLER Dorso gluteal-IM syringe 60 mg 60 mg, Intramuscular, ONCE, 1 dose, 03/08/20 at 1715, Routine documented in this encounter Insurance Payer Benefit Plan / Subscriber ID Effective Phone Address T ype Group Dates MEDICARE MEDICARE PART [id number] 2000-Pres [phone] Medicare A & B ent [id number] [place] [id number] COMMERCIAL COMMERCIAL [id number] 2009-Pres HMO/ PPO/POS NON-CONTRACT NON-CONTRACT ent GENERIC GENERIC documented as of this encounter"
--- OUTSIDE RECORDS SUMMARY | 2020-03-18 19:55 | XMS REPORT | Summary of Care ---
:1935 Author Organization [facility] Address [address] [place] [address] Care Team Providers Name Role Phone MD Franco Primary Care Provider Reason for Visit Reason Comments HAVE NO APPETITE Hip Pain right rating a 1010 Encounter Details Date Type Department Care Team Description 03/08/2020 Office Visit [facility] Family Sammy Gamez MD Acute right-sided low Medicine - [place] [address] back pain without [address] sciatica (Primary Dx) [place] [phone] Allergies Active Allergy Reactions [...] with No / Unsure 02/16/2020 2:28 PM FARE COLLECTOR someone who was confirmed or suspected to have Coronavirus / COVID-19? documented as of this encounter Last Filed Vital Signs Vital Sign Reading Time Taken Comments Blood Pressure 160/70 03/08/2020 3:27 PM in severe pa in in FARE COLLECTOR right hip Pulse - - Temperature - - Respiratory Rate - - Oxygen Saturation - - Inhaled Oxygen - - Concentration Weight 71.7 kg (158 lb) 03/08/2020 3:27 PM FARE COLLECTOR Height - - Body Mass Index 27.99 02/16/2020 2:21 PM FARE COLLECTOR documented in this encounter Progress Notes Maxime Gamez MD - 03/08/2020 3:15 PM CST Cc: pain Low back Chief Complaint Patient presents with HAVE NO APPETITE Hip Pain right rating a 10/10 Stephanie [facility] is a 84 [facility] female. Pain low back, started midline, has shifted to the . [facility] neurosurgery appointment in 2 days Allergies Stephanie [...] file Gets together: Not on file Attends temple service: Not on file Active member of [...] & General Bubba Webster MD [address] [place], [place] [address] Preventive Medicine Nurse, Shefali Pob Immunization Health [...] 4:16 PM 60 mg Right (TORADOL) injection FARE COLLECTOR Dorso gluteal-IM syringe 60 mg 60 mg, Intramuscular, ONCE, 1 dose, 03/08/20 at 1715, Routine documented in this encounter Insurance Payer Benefit Plan / Subscriber ID Effective Phone Address T ype Group Dates MEDICARE MEDICARE PART [id number] 2000-Pres [phone] Medicare A & B ent [phone] [id number] [place] [address] COMMERCIAL COMMERCIAL [id number] 2009-Pres HMO/ PPO/POS NON-CONTRACT NON-CONTRACT ent GENERIC GENERIC documented as of this encounter"
--- OUTSIDE RECORDS SUMMARY | 2020-03-18 19:55 | XMS REPORT | Summary of Care ---
:1935 Author Organization [facility] Address [address] [place] [address] Care Team Providers Name Role Phone MD Franco Primary Care Provider Reason for Visit Reason Comments Assessment pain in hip Encounter Details Date Type Department Care Team Description 03/03/2020 Telephone [facility] Family Sammy Gamez MD Assessment (pain in Medicine - [place] [address] hip) [address] [place] [address] Drive [address] [place], [place] [phone] [address] [phone] Allergies Active Allergy Reactions Severity Noted Date Comments Amlodipine Unknown - See comments 01/20/2015 documented as of this encounter (statuses as of 03/03/2020) Medications Medication Sig Dispensed Refills Start Date [...] follow package back pain without directions sciatica documented as of this encounter (statuses as of 03/03/2020) Active Problems Problem Noted Date Hypertensive urgency 09/23/2019 Chest pain 09/22/2019 Dermatitis 07/01/2019 Right knee pain 08/28/2016 Obesity (BMI 30-39.9) 04/06/2016 Weakness 04/06/2016 Left hip pain 02/11/2016 Essential hypertension 01/15/2015 Hyperlipidemia 01/15/2015 Anemia B twelve deficiency 01/15/2015 Malaise 01/15/2015 Fatigue 01/15/2015 Upper respiratory infection 01/15/2015 documented as of this encounter (statuses as of 03/03/2020) Immunizations Name Administration Dates Next Due Influenza High Dose 12/10/2018, 12/11/2017, 12/14/2016 Pneumococcal 13 Conjugate, PCV13 (Prevnar 12/10/2018, 2016, [...] with No / Unsure 02/16/2020 2:28 PM PROMOTIONAL MARKETING AGENT someone who was confirmed or suspected to have Coronavirus / COVID-19? documented as of this encounter Last Filed Vital Signs Not on filedocumented in this encounter Miscellaneous Notes Telephone Encounter - Magnolia Johnson, PRINCESS - 03/03/2020 2:34 PM CSTDIL notified of Dr. Gamez recommendation. Verbalized understanding. elephone Encounter - Trinh Mares - 03/03/2020 1:56 PM CSTDaughter inla of patient is returning nurse call. OTIONAL MARKETING AGENT Telephone Encounter - Magnolia Johnson LVN - 03/03/2020 1:51 PM CSTLeft message to call back. OTIONAL MARKETING AGENT Telephone Encounter - Maxime Gamez MD - 03/03/2020 1:43 PM CSTAleve would be a good addition elephone Encounter - Magnolia Johnson LVN - 03/03/2020 1:11 PM CSTPatient's daughter in law is calling concerned for patient. Reports she is still having pain and it is not relieved by the hydrocodone that was prescribed. Patient has appointment with specialist Dr. Gabriel in a couple weeks. She is wanting to know if with her medical condition Aleve is okay to take and if in addition to that you could prescribe an alternative such as tramadol to alleviate pain untilshe can be seen by specialist. Please review and advise. OTIONAL MARKETING AGENT Telephone Encounter - Venecia Reynolds - 03/03/2020 12:30 PM CSTPt daughter works here at [employer] as ELECTRICAL EQUIPMENT TECHNICIAN and she would like to speak w/nurse regarding her mother Hip pain before she leaves. documented in this encounter Plan of Treatment Health Maintenance Due Date Last Done Comments DTaP,Tdap,and Td Vaccines (1 - 1954 Tdap) Zoster Recombinant Vaccine 1985 (SHINGRIX) (1 of 2) Osteoporosis Screening 2000 Medicare Wellness Visit 12/14/2017 12/14/2016 INFLUENZA VACCINE (#1) 2019 12/10/2018, 12/11/2017, 12/14/2016 Depression Screening 02/15/2021 02/16/2020 PNEUMOCOCCAL VACCINES 65+ Completed 12/14/2018, 12/10/2018 , 12/14/2016, Additional history exists documented as of this encounter Results Not on filedocumented in this encounter Insurance Payer Benefit Plan / Subscriber ID Effective Phone Address T ype Group Dates MEDICARE MEDICARE PART [id number] 2000-Pres [phone] Medicare A & B ent [phone] [id number] [place] [address] COMMERCIAL COMMERCIAL [id number] 2009-Pres HMO/ PPO/POS NON-CONTRACT NON-CONTRACT ent GENERIC GENERIC documented as of this encounter
--- OUTSIDE RECORDS SUMMARY | 2020-03-18 19:55 | XMS REPORT | Summary of Care ---
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 Pob Lab Draw Procedures URINE Professional Office Building [address] [facility] [place] [address] Phone: Fax: Encounter Details Date Type Department Care Team Description 02/16/2020 Office Visit [facility] Family Sammy Gamez MD Acute right-sided low Medicine - [place] [address] back pain without [address] sciatica (Primary Dx) [place] [phone] Allergies Active Allergy Reactions [...] follow package back pain without directions sciatica HYDROcodone-acetaminophe Take 1 tablet by 28 tablet 0 02/16/20 20 Active n 7.5-325 mg per mouth every 6 0 tabletIndications: acute (six) hours as pain needed for Pain for up to 7 days. Indications: acute pain documented as of this encounter (statuses as [...] Date Never Smoker Smokeless Tobacco: Never Used Tobacco Cessation: Counseling Given: No Alcohol Use Drinks/Week oz/Week Comments Yes 2 Glasses of wine 4.0 2 Cans of beer Sex Assigned at Date Recorded Not on file COVID-19 Exposure Response Date Recorded In the last month, have you been in contact with No / Unsure 02/16/2020 2:28 PM ABRASIVE GRADER HELPER someone who was confirmed or suspected to have Coronavirus / COVID-19? documented as of this encounter Last Filed Vital Signs Vital Sign Reading Time Taken Comments Blood Pressure 195/53 02/16/2020 2:21 PM ABRASIVE GRADER HELPER Pulse 68 02/16/2020 2:21 PM ABRASIVE GRADER HELPER Temperature - - Respiratory Rate - - Oxygen Saturation - - Inhaled Oxygen Concentration - - Weight 74.8 kg (165 lb) 02/16/2020 2:21 PM ABRASIVE GRADER HELPER Height 160 cm (5' 3") 02/16/2020 2:21 PM ABRASIVE GRADER HELPER Body Mass Index 29.23 02/16/2020 2:21 PM ABRASIVE GRADER HELPER documented in this encounter Progress Notes Maxime Gamez MD - 02/16/2020 2:30 PM CST Cc: back pain Chief Complaint Patient presents with Back Pain lifted trash Sunday, 12/12 pain Stephanie Chairez is a 84 year old female. Picked up trash 3 days ago, hurt back, getting worse Allergies Stephanie is allergic to amlodipine. Medications [...] tablet by mouth daily. 90 tablet 1 carvediloL 12.5 mg tablet Take 1 tablet by mouth 3 (three) times daily with meals. 270 tablet 3 cloNIDine 0.1 mg tablet TAKE 1 TABLET BY MOUTH THREE TIMES A DAY 270 tablet 1 furosemide 40 mg tablet Take 1 tablet by mouth daily. 90 tablet 1 sodium chloride 1 gram tablet Take 1 [...] file Gets together: Not on file Attends christian service: Not on file Active member of [...] Review of Systems Vital Signs BP (!) 195/53 | Pulse 68 | Ht 5' 3" (1.6 m) | Wt 165 lb (74.8 kg) | BMI 29.23 kg/m Physical Exam Vitals signs reviewed. Constitutional: Appearance: Normal appearance. HENT: Head: Normocephalic and atraumatic. Right Ear: Tympanic membrane normal. Left Ear: Tympanic membrane normal. Neck: Musculoskeletal: Normal range of motion and neck supple. Cardiovascular: Rate and Rhythm: Normal rate and regular rhythm. Pulses: Normal pulses. Heart sounds: Normal heart sounds. Pulmonary: Effort: Pulmonary effort is normal. Breath sounds: Normal breath sounds. Musculoskeletal: Normal range of motion. Skin: General: Skin is warm and dry. Neurological: Mental Status: She is alert. Assessment/Plan Back pain, xray, hyrocodone, medrol pack This visit did not involve counseling and coordination that comprised more than 50% of the visit time. documented in this encounter Plan of Treatment Name Type Priority Associated Diagnoses Order S chedule XR LUMBAR SPINE 5 VW IMAGING Routine Acute right-sided lo w Expected: 02/16/2020, back pain without Expires: 1 04/18/2020 sciatica Health Maintenance Due Date Last Done Comments [...] sciatica - Primary documented in this encounter Insurance Payer Benefit Plan / Subscriber ID Effective Phone Address T ype Group Dates MEDICARE MEDICARE PART [id number] 2000-Pres [phone] Medicare A & B ent [phone] [id number] [place] [phone] COMMERCIAL COMMERCIAL [id number] 2009-Pres HMO/ PPO/POS NON-CONTRACT NON-CONTRACT ent GENERIC GENERIC (Home) [place] [address] documented as of this encounter
--- OUTSIDE RECORDS SUMMARY | 2020-03-18 19:55 | XMS REPORT | Summary of Care ---
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 Lab Draw Procedures URINE Professional Office Building [address] [facility] , [address] [place] [address] Phone: Fax: Encounter Details Date Type Department Care Team Description 02/16/2020 Hospital Encounter [facility] Maxime Gamez, Acute right-sided Mil Patrick MD low back pain Radiology [address] without sciatica [address] [place] [phone] Allergies Active Allergy Reactions Severity Noted Date Comments Amlodipine Unknown - See comments 01/20/2015 documented as of this encounter (statuses as of 02/17/2020) Medications Medication Sig Dispensed Refills Start Date [...] as of this encounter (statuses as of 02/17/2020) Active Problems Problem Noted Date Hypertensive urgency 09/23/2019 Chest pain 09/22/2019 Dermatitis 07/01/2019 Right knee pain 08/28/2016 Obesity (BMI 30-39.9) 04/06/2016 Weakness 04/06/2016 Left hip pain 02/11/2016 Essential hypertension 01/15/2015 Hyperlipidemia 01/15/2015 Anemia B twelve deficiency 01/15/2015 Malaise 01/15/2015 Fatigue 01/15/2015 Upper respiratory infection 01/15/2015 documented as of this encounter (statuses as of 02/17/2020) Immunizations Name Administration Dates Next Due Influenza [...] with No / Unsure 02/16/2020 2:28 PM WORM SORTER someone who was confirmed or suspected to have Coronavirus / COVID-19? documented as of this encounter Last Filed Vital Signs Not on filedocumented in this encounter Plan of Treatment Name Type Priority Associated Diagnoses Date/Ti me XR LUMBAR SPINE 5 VW IMAGING Routine Acute right-sided lo w 02/16/2020 3:27 PM WORM SORTER back pain without sciatica Name Type Priority Associated Diagnoses Order S chedule XR LUMBAR SPINE 5 VW IMAGING Routine Acute right-sided lo w ONCE for 1 Occurrences back pain without starting 1 04/18/2019 sciatica until 0 Health Maintenance Due Date Last Done Comments [...] Acute right-sided low back pain without sciatica documented in this encounter Insurance Payer Benefit Plan / Subscriber ID Effective Phone Address T ype Group Dates MEDICARE MEDICARE PART [id number] 2000-Pres [phone] Medicare A & B ent [id number] [place] [phone] COMMERCIAL COMMERCIAL [id number] 2009-Pres HMO/ PPO/POS NON-CONTRACT NON-CONTRACT ent GENERIC GENERIC documented as of this encounter
--- OUTSIDE RECORDS SUMMARY | 2020-03-18 19:55 | XMS REPORT | Summary of Care ---
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 Lab Draw Procedures URINE Professional Office Building [address] , [address] [place] [address] Phone: Fax: Encounter Details Date Type Department Care Team Description 02/16/2020 Office Visit [facility] Family Sammy Gamez MD Acute right-sided low Medicine - [place] [address] back pain without [address] sciatica (Primary Dx) [place] [phone] Allergies Active Allergy Reactions [...] with No / Unsure 02/16/2020 2:28 PM CLAY ARTISAN someone who was confirmed or suspected to have Coronavirus / COVID-19? documented as of this encounter Last Filed Vital Signs Vital Sign Reading Time Taken Comments Blood Pressure 195/53 02/16/2020 2:21 PM CLAY ARTISAN Pulse 68 02/16/2020 2:21 PM CLAY ARTISAN Temperature - - Respiratory Rate - - Oxygen Saturation - - Inhaled Oxygen Concentration - - Weight 74.8 kg (165 lb) 02/16/2020 2:21 PM CLAY ARTISAN Height 160 cm (5' 3") 02/16/2020 2:21 PM CLAY ARTISAN Body Mass Index 29.23 02/16/2020 2:21 PM CLAY ARTISAN documented in this encounter Progress Notes Maxime [...] file Gets together: Not on file Attends restorationism service: Not on file Active member of [...] T ype Group Dates MEDICARE MEDICARE PART [id number] 2000-Pres [phone] Medicare A & B ent [id number] [place] [phone] COMMERCIAL COMMERCIAL [id number] 2009-Pres HMO/ PPO/POS NON-CONTRACT NON-CONTRACT ent GENERIC GENERIC (Home) [place] [address] documented as of this encounter
--- OUTSIDE RECORDS SUMMARY | 2020-03-18 19:56 | XMS REPORT | Summary of Care ---
:1935 Author Organization [facility] Address [address] [place] [id number] Care Team Providers Name Role Phone MD Franco Primary Care Provider Reason for Visit Reason Comments Rx Concern/Question Depression Encounter Details Date Type Department Care Team Description 03/09/2020 Telephone [facility] Family Sammy Gamez MD Rx Concern/Question Medicine - [address] (Depression) [address] [place] [address] Drive [address] [place], [place] [phone] [address] [phone] Allergies Active Allergy Reactions Severity Noted Date [...] up to 7 days. Indications: acute pain mirtazapine 15 mg tablet Take 1 tablet by 30 tablet 1 03/09/19 21 Active mouth at bedtime. 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 documented as of this encounter Last Filed Vital Signs Not on filedocumented in this encounter Miscellaneous Notes Telephone Encounter - Martina Dc LVN - 03/09/2020 10:47 AM CSTPt has been notified of the medication that was ordered, directions and such. Rx sent to pharmacy. 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 Start Remeron 15mg qhs.#30 elephone Encounter - Rosita Carlisle - 03/09/2020 10:13 AM CSTPer patient she was seen yesterday by Dr. Gamez and she mentioned that she would like to get something for depression. Per patient her and Dr. Gamez started to discuss other thing and she thinks he may have forgotten about the prescription. Per patient she would like to speak to the nurse about the prescription.. Please call. documented in this encounter Plan of Treatment Date Type Specialty Care Team Description 03/11/2020 Imm/Inj Visit [facility] DarinBubba ragland MD [address] [place] [address] [phone] Preventive Medicine Nurse, Adc Pob Immunization Health Maintenance Due Date Last [...] T ype Group Dates MEDICARE MEDICARE PART [id number] 2000-Pres [phone] Medicare A & B ent [id number] [place] [id number] COMMERCIAL COMMERCIAL [id number] 2009-Pres HMO/ PPO/POS NON-CONTRACT NON-CONTRACT ent GENERIC GENERIC documented as of this encounter
--- OUTSIDE RECORDS SUMMARY | 2020-03-18 19:58 | XMS REPORT | Summary of Care ---
:1935 Author Organization [facility] - [facility] Address [address] [place] [id number] Care Team Providers Name Role Phone MD Franco Primary Care Provider Reason for Referral (Routine) Status Reason Specialty Diagnoses / Referred By Referred To Procedures Contact Contact New Request Orthopedic Surgery Diagnoses Closed displaced fracture of left femoral neck Kathleen Muñiz, Procedures CONSULT/REFERRAL [facility] [address] [place], [place] [address] Other (Routine) Status Reason Specialty Diagnoses / Referred By Referred To Procedures Contact Contact New Request Orthopedic Surgery Diagnoses Closed displaced fracture of left femoral neck Kathleen Muñiz Carmich ael, Procedures Discharge Follow-up: Specialty Provider LATASHA BRUNO; 2 Weeks MD Latasha Riley MD [id number] [place] [address] [phone] Phone: Fax: Radiology Services (Routine) Status Reason Specialty Diagnoses / Referred By Referred To Procedures Contact Contact New Request Diagnostic Diagnoses Closed displaced fracture of left femoral neck Damion Radiology Procedures XR PELVIS <3 VW Latasha Riley MD [address] [place] [address] Radiology Services (STAT) Status Reason Specialty Diagnoses / Referred By Referred To Procedures Contact Contact New Request Diagnostic Diagnoses Closed fracture of left hip, initial encounter Aylin Coyne Radiology Procedures XR CHEST 1 VW MD Lillie [id number] [place] [phone] Radiology Services (STAT) Status Reason Specialty Diagnoses / Referred By Referred To Procedures Contact Contact New Request Diagnostic Diagnoses Fall, initial encounter Ibikunle, Radiology Procedures XR FEMUR 2 VW LEFT Folusho F, TRACK MAINTAINER [address] [place] [address] Radiology Services (STAT) Status Reason Specialty Diagnoses / Referred By Referred To Procedures Contact Contact New Request Diagnostic Diagnoses Fall, initial encounter Ibikunle, Radiology Procedures XR HIPS 2 VW LEFT Folusho F, TRACK MAINTAINER [address] [place] [place] [phone] Reason for Visit Reason Comments Hip Pain Auth/Cert Status Reason Specialty Diagnoses / Referred By Referred To Procedures Contact Contact Emergency Medicine Diagnoses Closed Displaced Fracture of Left Femoral Neck [facility] [address] [place] [phone] Fax: Encounter Details Date Type Department Care Team Description 03/12/2020 - Hospital Encounter Acute Care for the Shruti, Valdezo F, TRACK MAINTAINER [address] [place] [phone] Closed displaced 03/18/2020 Elderly (MADDIE 11D) Aylin Coyne MD [id number] [place], [place] [phone] fracture of left [address] Kathleen Muñiz MD [id number] [place] [address] [phone] femoral neck [place], [place] [phone] Allergies Active Allergy Reactions Severity Noted Date Comments Amlodipine Rash 01/20/2015 documented as of this encounter (statuses as of 03/18/2020) Medications Medication Sig Dispensed Refills Start End Status Date Date aspirin (ASPIRIN LOW Take 81 mg by 0 Active DOSE) 81 mg EC tablet mouth daily. cloNIDine 0.1 mg TAKE 1 TABLET 270 tablet 1 09/04/19 Active tabletIndications: BY MOUTH THREE 20 Essential hypertension TIMES A DAY carvediloL 12.5 mg Take 1 tablet 270 tablet 3 09/04/19 Active tabletIndications: by mouth 3 20 Essential hypertension (three) times daily with meals. furosemide 40 mg Take 1 tablet 90 tablet 1 09/04/19 Active tabletIndications: by mouth 20 Essential hypertension daily. valsartan 160 mg Take 1 tablet 90 tablet 1 09/23/19 Active tabletIndications: by mouth 20 Essential hypertension daily. hydrALAZINE 25 mg Take 1 tablet 90 tablet 2 09/23/19 Active tabletIndications: by mouth 2 20 Hyperlipidemia, (two) times unspecified daily. hyperlipidemia type lovastatin 20 mg TAKE 1 TABLET 90 tablet 1 09/23/19 Active tabletIndications: BY MOUTH ONCE 20 Hyperlipidemia, A DAY - MUST unspecified BE SEEN FOR hyperlipidemia type FURTHER REFILLS mirtazapine 15 mg Take 1 tablet 30 tablet 1 03/09/19 Active tablet by mouth at 21 bedtime. enoxaparin 40 mg/0.4 inject 0.4 mL 11.2 mL 0 03/14/1904/11 Active mL under the skin injectionIndications: every 24 Closed displaced (twenty-four) fracture of left hours for 28 femoral neck days. sodium chloride 1 gram Take 1 tablet 30 tablet 1 03/19/19 Active tabletIndications: by mouth 21 Closed displaced daily. fracture of left femoral neck sodium chloride 1 gram Take 1 g by 0 03/12 Discontinued tablet mouth 2 (two) 021 (Patie nt times daily. Reporte d) methylPREDNISolone Take Each 0 02/16/20 D iscontinued (MEDROL, GILDA,) 4 mg tablets by (Therapy tabletsIndications: mouth completed) Acute right-sided low SEE-INSTRUCTIO back pain without NS. follow sciatica package directions oxyCODONE-acetaminophe Take 1 tablet 20 tablet 0 03/08/1910/04 Discontinued n 7.5-325 mg per by mouth every (Therapy tabletIndications: 4 (four) hours completed) acute pain as needed for Pain for up to 7 days. Indications: acute pain documented as of this encounter (statuses as of 03/18/2020) Active Problems Problem Noted Date Closed displaced fracture of left femoral neck Fall, initial encounter 03/12/2020 Overview: Added automatically from request for tyler brando [id number] Closed fracture of left hip, initial encounter Overview: Added automatically from request for tyler brando [id number] Hypertensive urgency 09/23/2019 Chest pain 09/22/2019 Dermatitis 07/01/2019 Right knee pain 08/28/2016 Obesity (BMI 30-39.9) 04/06/2016 Weakness 04/06/2016 Left hip pain 02/11/2016 Essential hypertension 01/15/2015 Hyperlipidemia 01/15/2015 Anemia B twelve deficiency 01/15/2015 Malaise 01/15/2015 Fatigue 01/15/2015 Upper respiratory infection 01/15/2015 documented as of this encounter (statuses as of 03/18/2020) Immunizations Name Administration Dates Next Due Influenza [...] been in contact with No / Unsure 03/12/2020 6:36 PM ADDRESSOGRAPH OPERATOR someone who was confirmed or suspected to have Coronavirus / COVID-19? documented as of this encounter Last Filed Vital Signs Vital Sign Reading Time Taken Comments Blood Pressure 193/67 03/18/2020 5:27 PM ADDRESSOGRAPH OPERATOR Pulse 69 03/18/2020 5:27 PM ADDRESSOGRAPH OPERATOR Temperature 36.7 C (98.1 F) 03/18/2020 5:27 PM ADDRESSOGRAPH OPERATOR Respiratory Rate 18 03/18/2020 5:27 PM ADDRESSOGRAPH OPERATOR Oxygen Saturation 95% 03/18/2020 5:27 PM ADDRESSOGRAPH OPERATOR Inhaled Oxygen Concentration - - Weight 77.1 kg (170 lb) 03/12/2020 6:37 PM ADDRESSOGRAPH OPERATOR Height - - Body Mass Index 30.11 02/16/2020 2:21 PM ADDRESSOGRAPH OPERATOR documented in this encounter Discharge Summaries Fatoumata Damian MD - 03/18/2020 12:[address] [facility] Team Discharge Summary Date of Service: 03/18/20 ADMIT DATE: 03/12/2020 DISCHARGE DATE: 03/18/20 ATTENDING MD: Antonino TARIQ MD: Nati PCP: Maxime Gamez REASON FOR ADMISSION Left hip pain FINAL DIAGNOSIS: (the reason, after study, for admitting the patient to the hospital) Closed L femoral neck fractures/p mechanical fall s/p L hip arthroplasty 03/13/20 SECONDARY DIAGNOSIS: (any diagnosis that, on this admission, required clinical evaluation, therapeutic treatment, diagnostic procedures, extended hospital stay, or additional nursing care/monitoring) Osteoporosis w/ fragility fracture Compression fracture of L3: Chronic low back pain 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 * Orders Placed This Encounter CONSULT ORTHOPAEDIC SURGERY Consult Adult Physical Therapy Consult Adult Occupational Therapy CONSULT/REFERRAL [facility] Orders Placed This Encounter CASE REQUEST: HIP HEMIARTHROPLASTY SIGNIFICANT LAB/X-RAYS: Lab results: CBC BMP PT/INR WBC (10*3/L) Date Value 03/18/2020 5.87 NA (mmol/L) Date Value 03/18/2020 125 (L) No results found for: PT RBC (10*6/L) Date Value 03/18/2020 2.56 (L) K (mmol/L) Date Value 03/18/2020 4.9 INR (no units) Date Value 03/13/2020 1.1 PLT (10*3/L) Date Value 03/18/2020 117 (L) CALCIUM (mg/dL) Date Value 03/18/2020 8.4 (L) HGB (g/dL) Date Value 03/18/2020 7.9 (L) CL (mmol/L) Date Value 03/18/2020 99 aPTT HCT (%) Date Value 03/18/2020 22.7 (L) BUN (mg/dL) Date Value 03/18/2020 30 (H) APTT Patient (Seconds) Date Value 03/12/2020 27 CREATININE (mg/dL) Date Value 03/18/2020 1.10 (H) GLUCOSE (mg/dL) Date Value 03/18/2020 92 CO2 TOTAL (mmol/L) Date Value 03/18/2020 24 X-ray results: Xr Chest 1 Vw Result Date: 03/13/2020 Impression: No acute cardiac pulmonary process. Xr Femur 2 Vw Left Result Date: 03/13/2020 Mildly impacted proximal femoral neck fracture Osteopenia. Preliminary Report Dictated by Resident: Nilo Monaco MD., have reviewed this study and agree with the above report. Xr Hips 2 Vw Left Result Date: 03/13/2020 Mildly impacted proximal femoral neck fracture Osteopenia. Preliminary Report Dictated by Resident: Nilo Monaco MD., have reviewed this study and agree with the above report. Xr Pelvis <3 Vw Result Date: 03/13/2020 Unremarkable left hip hemiarthroplasty change. Radiology study indicated for follow-up? No HOSPITAL COURSE: Stephanie Chairez is a 84 year old female with a PMH ofHTN and HLD who presentsafter a mechanical fall on her left side resulting in left femoral neck fracture. Orthoperformed L hip arthroplasty 03/13/2020. Given 1U pRBC for post-surgical anemia. Started on NaCl tablets for hyponatremia. Anemia and hyponatremia were improved and patient stable to discharge to rehab facility for further recovery. ITEMS FOR FOLLOW UP PROVIDER: (including pending labs/cultures/studies, anticipated problems, etc.) 1. Patient will need Lovenox 40mg subq daily for 28 days from her surgery (until 04/11/2020). If patient is discharged from rehab before this date, please prescribe patient Lovenox and instruct patient and family on how to self-administer 2. Patient was started on NaCl tablets, 1g daily for hyponatremia. Her acute hyponatremia to 115 wasthought to be due to post-surgical SIADH in the setting of known history of chronic hyponatremia. Please follow patient's BMP intermittently and adjust the NaCl supplement as needed. 3. Patient will need to follow up with orthopedics and bone health clinic approximately 2 weeks after discharge for continued post-surgical care and monitoring FUNCTIONAL STATUS: ambulate with assistance DISCHARGE CONDITION: fair COGNITIVE STATUS: cognitively intact DIET: regular ACTIVITY: as tolerated DISCHARGE MEDICATIONS: Current Discharge Medication List START taking these medications Details enoxaparin (LOVENOX) 40 mg inject 40 mg under the skin every 24 (twenty-four) hours. Qty: 11.2 mL, Refills: 0 Start date: 03/14/2020, End date: 04/11/2020 Associated Diagnoses: Closed displaced fracture of left femoral neck sodium chloride 1 g Take 1 g by mouth daily. Qty: 30 tablet, Refills: 1 Start date: 03/19/2020 Associated Diagnoses: Closed displaced fracture of left femoral neck CONTINUE these medications which have NOT CHANGED Details mirtazapine (REMERON) 15 mg Take 15 mg by mouth at bedtime. Qty: 30 tablet, Refills: 1 hydrALAZINE (APRESOLINE) 25 mg Take 25 mg by mouth 2 (two) times daily. Qty: 90 tablet, Refills: 2 Associated Diagnoses: Hyperlipidemia, unspecified hyperlipidemia type lovastatin 20 mg tablet TAKE 1 TABLET BY MOUTH ONCE A DAY - MUST BE SEEN FOR FURTHER REFILLS Qty: 90 tablet, Refills: 1 Associated Diagnoses: Hyperlipidemia, unspecified hyperlipidemia type valsartan (DIOVAN) 160 mg Take 160 mg by mouth daily. Qty: 90 tablet, Refills: 1 Associated Diagnoses: Essential hypertension carvediloL (COREG) 12.5 mg Take 12.5 mg by mouth 3 (three) times daily with meals. Qty: 270 tablet, Refills: 3 Associated Diagnoses: Essential hypertension cloNIDine 0.1 mg tablet TAKE 1 TABLET BY MOUTH THREE TIMES A DAY Qty: 270 tablet, Refills: 1 Associated Diagnoses: Essential hypertension furosemide (LASIX) 40 mg Take 40 mg by mouth daily. Qty: 90 tablet, Refills: 1 Associated Diagnoses: Essential hypertension aspirin 81 mg Take 81 mg by mouth daily. Discharge Orders CONSULT[facility]REFERRAL [facility] Requesting consult or referral? Referral Reason for referral - please evaluate and treat for: left femoral neck fracture s/p left hip hemiarthroplasty Regular Diet; Texture: Regular. Texture Regular. Diabetic: No Discharge Condition - Discharge Condition: FAIR Discharge Activity Discharge Activity: As Tolerated VTE Propylaxis- Was ordered during hospitalization Discharge Instructions Order Comments: 1. You were diagnosed with low sodium levels in your blood (hyponatremia). Please take 1g of Sodium Chloride pill every day. Follow up with a primary care doctor to monitor your sodium levels. He/she can adjust your Sodium pill as needed to make sure it is not too high or too low. 2. Follow up with your orthopedic surgeon Dr. Bruno in clinic in about 2 weeks. 3. Follow up with Dr. Calabrese in bone health clinic in about 2 weeks. 4. You will need a Lovenox (enoxaparin) injection to prevent blood clots for 28 days after your surgery. They can continue to give this injection at the Rehab facility. Discharge Follow-up: Specialty Provider LATASHA BRUNO; 2 Weeks Order Comments: left femoral neck fracture s/p left hip hemiarthroplasty To Provider: LAATSHA BRUNO [[id number]] Patient's Preferred Location: Unknown Discharge Disposition: Rehab, (ATX) When (Patients with risk for unplanned readmission score over 16 or those noted as Hospital Dependent should follow up within 7 days with PCP or primary DX specialist): 2 Weeks Risk of Unplanned Readmission:( Score greater than 16 indicates high risk) 17 WOUND CARE: none CODE STATUS: full code DISCHARGE: rehab facility FOLLOW-UP APPOINTMENT: 1. Bone clinic with Dr. Calabrese in 2 weeks 2. Ortho clinic with Dr. Bruno in 2 weeks 3. Follow up with PCP after discharge from rehabilitation facility PLAN FOR READMISSION: No Please call paging services at [phone] to contact Fatoumata Damian MD with any questions. Fatoumata Damian M.D., PGY-1 Department of Internal Medicine ESSOGRAPH OPERATOR Associated attestation - Kathleen Muñiz MD - 03/18/2020 6:30 PM CSTI saw and examined the patient on 03/18/2020 and agree with the resident's note as written by Dr. Damian. I actively participated in the decision-making process. Please see the resident's note for additional details. Better hyponatremia and cognition and RAFI and constipation--all improved. DC today.S/p RX for The primary encounter diagnosis was Closed displaced fracture of left femoral neck. Diagnoses of Fall, initial encounter, Closed fracture of left hip, initial encounter, and Angina pectoris with documented spasm were also pertinent to this visit. documented in this encounter Progress Notes Maria Alejandra Melchor RN - 03/18/2020 2:56 PM ADDRESSOGRAPH OPERATOR Care Management Discharge Disposition Note (DCDN) 5-2-1 Interventions: Disease specific education;Intensive medication reconciliation/management;Teachback;Clear discharge plan;Follow-up appointments 5-2-1 Providers: Physician;Nanny/Household Manager/Almond Sorter;Nurse 5-2-1 Patient Capacity Improvements: Transportation arrangements Discharge Plan for ongoing care and services: Rehabilitation Patient Choice completed for referred services: Yes Discussed with patient/patients family involved in decision making: Patient or family caregiver understands, and agrees with discharge plan Patient's family or support contact: Lucas Chairez (spouse) [phone] Discharge Plan: Rehabilitation Receiving facility was provided the following clinical documentation at discharge- CM Facesheet, Consult notes, Labs, Progress Notes, MAR: Yes DME location: Other DME location: Durable Medical Equipment: Home Health location: Discharge location(s): [facility] [address]- [address] [place], [place] () [phone] (F) [phone] Community resources/referrals made or provided to patient: Resources/Referrals: Mental Status: Alert & Oriented to Person,Place & Time Psychosocial issues and/or concerns resulting in patient being a high risk for re-admission: Manage ADL indepentdly: Yes Living Arrangement: Home Other living arrangement: Address of living arrangement: [address] [place] [id number] Funding Resources: Medicare A & B;Supplement/Secondary Has patient been referred to [facility]? Nursing informed of discharge plan: CHP referral sent? CM medication request completed (if appropriate): PCP: Yes Maxime Gamez Transportation: Wheelchair Van Prior authorization obtained for ambulance: Authorization number: CPT code: Discharge Medications Will the patient be able to obtain his medications? Yes Does the patient have transportation to to obtain the prescription medications? Yes CM Medication Request completed (if appropriate): Yes Expected discharge date: 03/18/20 Time: 1530 Name of RN informed: VERO Kuo Additional Information: [facility] ([phone]) will be picking the patient up in a specialty wheelchair [facility] discharge between 1530 and 1630. CM/SW Name & Contact number: VERO Phillips RN, BSN Patient Care Provider [facility]-Care Management [email or web address] Office: [phone] (not for patient use) The following information has been provided to the facility noted above: reason for the patient discharge or transfer; patients physical and psychosocial status; summary of care, treatment, servicesprovided to patient; and the patient progress toward goals. ESSOGRAPH OPERATOR Aylin Garcia, SUPERVISOR ESTERS AND EMULSIFIERS - 03/18/2020 2:05 PM CSTPhysical Therapy Progress Note: Discharge Recommendations: Therapy Needs and Potential: Patient would benefit from continued physical therapy services to address: decline in bed mobility decline in transfers decline in gait and/or balance decline in stair/step negotiation decreased strength decreased endurance Patient demonstrates good potential to improve and meet therapy goals with further physical therapy services. Patient appears motivated to improve their functional mobility and return to their previous levelof function. Patient demonstrates ability to tolerate atleast 60-90 minutes of physical therapy with active participation. Challenges to Home Transition: increased risk of falls decreased safety awareness environmental barriers Equipment recommendations: Rolling walker PAIN: denies pain PRECAUTIONS: Weight Bearing Precaution: WBAT, Left, LE General Precautions: PPE used:Gloves and Surgical mask, General, Fall, Posterior Hip Bracing/Cast present or required: Hip abduction wedge while in bed S: Patient agreeable to working with PT. O: Patient met Up in chair. Patient seen for the following: Bed mobility: Sit to supine: SBA/Setup Patient utilizing leg associate director finance during bed mobility Transfers: Sit to stand: SBA/Setup using Rolling Walker Stand to sit: SBA/Setup using Rolling Walker Static/dynamic standing balance: Good Verbal cueing provided for correct hand placement and correct use of AD Gait: Assisted patient with ambulation as follows: about 160 feet using Rolling Walker and SBA/Setup Patient presenting with Step-through gait pattern. Patient with minimal instability and no LOB. Patient with decreased B step length -- verbal cueing provided cued patient on postural adjustments and AD management Therapeutic exercise: patient educated in Compensatory techniques/adaptive strategies, Energy conservation, Fall prevention, General strengthening, Positioning, Safety awareness and Hip precautions., instructed patient in the following: ankle pumps, quad sets, heel slides, long arc quads, patient/caregiver demonstrates u nderstanding of instructions. After session, patient Semi reclined in bed with abduction wedge placed. Call melendez provided. A: Patient tolerated session well. Patient progressing toward goals . P: PT will - progress mobility. Total Timed Tx Codes in Minutes: 24 Min Total Treatment Time in Minutes:24 Min Aylin Garcia PTA Supervising PT Senait Ruby ESSOGRAPH OPERATOR Torsten Vang, OT - 03/18/2020 12:51 PM CSTOCCUPATIONAL THERAPY NOTE: Discharge Recommendations: Therapy Needs and Potential:- Patient would benefit from continued skilled occupational therapy services to address: Decline in basic activities of daily living, Decline in instrumental activities of daily living, Decreased strength, Decreased range of motion and Decreased endurance - Patient demonstrates good potential to improve and meet therapy goals with further skilled occupational therapy services. - Patient appears motivated to improve their B/IADLs and return to their previous level of function. - Patient demonstrates ability to tolerate at least 60-90 minutes of active participation in occupational therapy. - Patient able to follow commands: 1-step Yes, Multi-step Yes, Inconsistencies No Challenges to Home Transition:- Requires physical assistance for BADLS - Requires physical assistance for IADLS - Requires supervision or verbal cues for BADLS - Requires supervision or verbal cues for IADLS - Limited caregiver availability - Decreased safety awareness/judgement - Increased risk of falls - Environmental barriers Equipment Recommendations:Tub transfer bench and RW, hip kit Precautions: WB: WBAT L LE General: PPE Utilized: Gloves and Surgical mask, Fall and Posterior hip precautions Bracing: Hip abduction wedge S: Patient agreeable to participate in occupational therapy. I feel so much better today PAIN Pre-treatment: 3/10 pain at left leg. Post-treatment: 3/10 pain at left leg. reports taking pain meds and Repositioning Provided. O: Patient found semireclining in bed. Vital signs stable . Patient seen this date for the following: ADL Training Grooming: SBA/setup standing at sink UB Dressing: SBA/Setup LB Dressing: Min assist donning socks with AE Toilet Transfer: SBA/setup Toileting Hygiene: Min assist for cleanup and clothing management Patient maintains hip precautions throughout session. Patient educated about the following adaptive equipment: hip kit, Tub transfer bench. Handout issued, Yes. Patient educated about fall prevention and safety awareness. Handout issued, No. Patient educated about the following: Adaptive equipment , ADL training, Compensatory techniques/adaptive strategies, Fall prevention, General strengthening, Safety awareness and Hip precautions. Handout issued, No. - cued on AE for ADL's and hip precautions Patient left sitting upright in bedside chair with call melendez in reach. Vital signs stable and P[employer]ychair alarm engaged, nursing staff notified. A: Patient exhibited Good participation in therapy and responded well to treatment this session. Patient is progressing toward goal(s) 6. Met goals 1,2,3,4,5. Pain, Poor endurance and Persistent weakness remain(s) a limiting factor. Patient continues to present with Decreased independence with ADL, D ecreased functional ROM, Decreased strength/endurance for functional activity and Impaired safety awareness and will benefit from continued OT services to address above areas and improve functional status. P: Patient/Caregivier Education, Equipment recommendations, Daily living activities and Therapeutic exercises and update current goals to Mod I. GOAL(S): By discharge, patient will increase independence in daily living skills as follows: 1 Patient will perform 3 in 1 BSC transfer with CGA. 2 Patient will perform LB dressing with minimal assistance with AE. 3 Patient will complete grooming tasks with independence and CGA while standing at the sink. 4 Patient will complete toileting hygiene, including clothing management, with minimal assistance. 5 Patient will increase endurance for functional activity as evidenced by ability to sustain 20 minutes of active participation. 6 Patient/caregiver will verbalize/demonstrate understanding/proficiency in the following home programs: Adaptive equipment , ADL training, Compensatory techniques/adaptive strategies, Fall prevention,General strengthening, Safety awareness and Hip precautions Jesse LOUISE/Melissa Supervising OTR Faith Lowery Total Timed Treatment Codes: 56 Min Total Treatment Time: 56 Min eAylin esteban, SUPERVISOR [employer]ERS AND [employer]IERS - 03/18/2020 11:18 AM ADDRESSOGRAPH OPERATOR Physical Therapy Progress Note: Discharge Recommendations: Therapy Needs and Potential: Patient would benefit from continued physical therapy services to address: decline in bed mobility decline in transfers decline in gait and/or balance decline in stair/step negotiation decreased strength decreased endurance Patient demonstrates good potential to improve and meet therapy goals with further physical therapy services. Patient appears motivated to improve their functional mobility and return to their previous levelof function. Patient demonstrates ability to tolerate atleast 60-90 minutes of physical therapy with active participation. Challenges to Home Transition: increased risk of falls decreased safety awareness environmental barriers Equipment recommendations: Rolling walker PAIN: denies pain PRECAUTIONS: Weight Bearing Precaution: WBAT, Left, LE General Precautions: PPE used:Gloves and Surgical mask, General, Fall, Posterior Hip Bracing/Cast present or required: Hip abduction wedge while in bed S: Patient agreeable to working with PT. O: Patient met Up in chair. Patient seen for the following: Bed mobility: Sit to supine: SBA/Setup Patient utilizing leg associate director finance during bed mobility Transfers: Sit to stand: SBA/Setup using Rolling Walker Stand to sit: SBA/Setup using Rolling Walker Static/dynamic standing balance: Good Verbal cueing provided for correct hand placement and correct use of AD Gait: Assisted patient with ambulation as follows: about 180 feet using Rolling Walker and SBA/Setup Patient presenting with Step-through gait pattern. Patient with minimal instability and no LOB. Patient with decreased B step length -- verbal cueing provided cued patient on postural adjustments and AD management Therapeutic exercise: patient educated in Compensatory techniques/adaptive strategies, Energy conservation, Fall prevention, General strengthening, Positioning, Safety awareness and Hip precautions., instructed patient in the following: ankle pumps, quad sets, heel slides, long arc quads, patient/caregiver demonstrates u nderstanding of instructions. After session, patient Semi reclined in bed with abduction wedge placed. Call melendez provided. A: Patient tolerated session well. Patient progressing toward goals . P: PT will - progress mobility. Total Timed Tx Codes in Minutes: 57 Min Total Treatment Time in Minutes: 57 Min Aylin Garica PTA Supervising PT Senait Ruby Maria Alejandra Lomeli RN - 03/18/2020 7:59 AM CSTCARE MANAGEMENT PROGRESS NOTE CM met with patient at bedside regarding discharge planning. Patient expressed that she may want tojust go home rather than go to rehab facility. CM explained what kind of therapies were involved atinpatient rehab compared to home health PT/OT and the length of time she may spend at [facility]. Patient was concerned about the insurance covering the stay, and CM explained that insurance covers [facility] 100%. Patient is going to speak to her family and let CM know this morning if she still wants to go to [facility] or go home with home health PT/OT. CM to follow up this am Maria Alejandra Melchor RN, BSN Patient Care Provider [facility]-Care Management [email or web address] Office: [phone] (not for patient use) Aylin Yost PTA - 03/17/2020 1:51 PM CSTPhysical Therapy Progress Note: Discharge Recommendations: Therapy Needs and Potential: Patient would benefit from continued physical therapy services to address: decline in bed mobility decline in transfers decline in gait and/or balance decline in stair/step negotiation decreased strength decreased endurance Patient demonstrates good potential to improve and meet therapy goals with further physical therapy services. Patient appears motivated to improve their functional mobility and return to their previous levelof function. Patient demonstrates ability to tolerate atleast 60-90 minutes of physical therapy with active participation. Challenges to Home Transition: increased risk of falls decreased safety awareness environmental barriers Equipment recommendations: Rolling walker PAIN: denies pain PRECAUTIONS: Weight Bearing Precaution: WBAT, Left, LE General Precautions: PPE used:Gloves and Surgical mask, General, Fall, Posterior Hip Bracing/Cast present or required: Hip abduction wedge while in bed S: Patient agreeable to working with PT. O: Patient met Semi reclined in bed. Patient seen for the following: Bed mobility: Supine to sit: SBA/Setup Scooting to edge of bed: SBA/Setup Sit to supine: SBA/Setup Patient utilizing leg associate director finance during bed mobility Transfers: Sit to stand: SBA/Setup using Rolling Walker Stand to sit: SBA/Setup using Rolling Walker Static/dynamic standing balance: Good Verbal cueing provided for correct hand placement and correct use of AD Gait: Assisted patient with ambulation as follows: about 180 feet using Rolling Walker and SBA/Setup Patient presenting with Step-through gait pattern. Patient with minimal instability and no LOB. Patient with decreased B step length -- verbal cueing provided Patient with one standing rest break elicited by fatigue cued patient on postural adjustments and AD management Therapeutic exercise: patient educated in Compensatory techniques/adaptive strategies, Energy conservation, Fall prevention, General strengthening, Positioning, Safety awareness and Hip precautions., instructed patient in the following: ankle pumps, quad sets, heel slides, long arc quads, patient/caregiver demonstrates u nderstanding of instructions. After session, patient Semi reclined in bed with family present and abduction wedge placed. Call melendez provided. A: Patient tolerated session well. Patient progressing toward goals . P: PT will - progress mobility. Total Timed Tx Codes in Minutes: 40 Min Total Treatment Time in Minutes: 40 Min Aylin Garcia PTA Supervising PT Senait Ruby ESSOGRAPH OPERATOR Christopher Long PAC - 03/17/2020 8:33 AM CST ORTHO PROGRESS NOTE 03/17/2020 08:33 Procedure: s/p left hip hemiarthroplasty, 03/13/2019 CC: left hip pain SUBJECTIVE / EVENTS PAST 24 H SABINA overnight. Pt resting in chair upon visit. Pt reports minimal pain at this time. Pt reports no neurological changes to her LLE. Pt has no other c/o at this time. Pt denies any fever, chills, N/V/D, PRINGLE, or chest pain at this time. OBJECTIVE Temp: [36.7 C (98 F)-37.6 C (99.7 F)] Pulse: [65-73] Resp: [18-22] BP: (103-165)/(40-71) MAP (mmHg): [70-88] A&O, NAD CV: Normal peripheral perfusion Lungs: Normal respiratory effort Integument: Warm and dry Psychiatric: appropriate affect Musculoskeletal: LLE: - dressing intact, dried bloody discharge to dressing, replaced today. - motor intact FHL/EHL/TA/GS, SILT S/S/SP/DP/T distributions, palpable DP/PT pulses, brisk capillaryrefill in toes - (-) erythema, ecchymosis or discharge to LLE. - mild edema to left hip. - no pain with hip ROM. LABS CBC Recent Labs 03/17/20 0032 WBC 6.55 RBC 2.18* PLT 125* HGB 6.9* HCT 19.7* Imaging: No new imaging obtained at this time. ASSESSMENT & PLAN Stephanie Chairez is a 84 year old female s/p left hip hemiarthroplasty, 03/13/2019 Diet, pain control, medical management, and henning care (if applicable) per primary team. Appreciate assistance in this patient's care. Heme: Hgb: 6.9. Pt currently asymptomatic at this time. Would consider transfusion of 1 unit of pRBCdue to age and medical hx. ID: post-op abx completed Activity: WBAT LLE with posterior hip precautions x 6 weeks from date of operation. M/S: dressing exchanged today. Keep c/d/i till follow up. DVT prophylaxis: Recommend chemical DVT PPx from date of operation, Lovenox 40mg daily. Recommend SCD use while admitted Henning: none Dispo: No further orthopedic interventions planned at this time. Keep dressing c/d/i. Pt may follow up with Dr. Bruno, [facility] ortho, in 2 weeks from date of discharge for post-op follow up. Recommend 28 days of chemical DVT PPx from date of operation. Continue PT/OT at this time. Will continue to monitor at this time. Please call ortho with any further questions or concerns. Thank you for your assistance with the management and treatment of this patient Christopher Long PA-C 03/17/2020 08:33 [phone] Fatoumata Navarro MD - 03/17/2020 6:54 AM CST Brian Progress Note Date of Service: 03/17/2020 06:55 Chief Complaint: Left hip pain 24-HOUR EVENTS: - NAEO SUBJECTIVE: Ms. Chairez says she feels good overall. She says there is on pain on her left hip except very mild discomfort when she is moved from bed. She states having 2 BM yesterday. Denies headache, changes in vision, dizziness, vertigo, CP, palpitations, SOB, fever, chills. PHYSICAL EXAM: Vitals: 03/16/20 1619 03/16/20 1936 03/17/20 0035 03/17/20 0313 BP: (!) 158/46 (!) 160/48 (!) 165/45 (!) 140/40 BP Location: Left arm Left arm Left arm Left arm Patient Position: Supine Supine Supine Supine Pulse: 69 66 72 66 Resp: 18 22 18 18 Temp: 36.9 C (98.5 F) 37.2 C (99 F) 37.6 C (99.7 F) 37.5 C (99.5 F) TempSrc: Oral Oral Oral Oral SpO2: 95% 95% 92% 92% Weight: On room air Intake/Output Summary (Last 24 hours) at 03/17/2020 0655 Last data filed at 03/16/2020 2107 Gross per 24 hour Intake 740 ml Output 700 ml Net 40 ml General: alert and oriented x 4 (person, place, date/time and situation); no apparent distress Lungs: clear to auscultation bilaterally Cardio: S1, S2 normal; no murmurs, rubs or gallops, regular rate and rhythm Abdomen: soft; non-tender; non-distended; normoactive bowel sounds Extremities: No cyanosis, 1+ edema left ankle, no edema on right ankle, pulses palpable. Skin: no rashes. S/p hip arthroplasty dressing noted on left hip, clean borders, no bruises or ecchymoses noted on affected area. Bruises and ecchymoses noted on anterior forearms bilaterally from IVsites. 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 - Ortho following: "Lovenox 40mg daily for 28 days post-op. - PT/OT following: maximize independence and safety w/functional mobility; ambulation with rolling walker. 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 Patient is asymptomatic and VSS. RAFI and BMP changes may be post-surgical. - Repeat H&H, BMP tomorrow and reassess anticipated d/c - initiated on NaCl 1g PO TID - Blood Transfusion 1 unit ordered today Dispo Anticipated Discharge Date: tomorrow 03/18/20 Barriers to Discharge: hyponatremia, anemia Patient seen and discussed with Dr. Muñiz, Geriatrics faculty. Lu Reeves MS3 I personally examined the patient on 03/17/20 and have verified the MS3 medical student documentation and/or findings, including the history, physical exam, and medical decision making. Additionally, Deanne personally performed or re- performed the physical exam and medical decision making activities of this patient's evaluation and management service. Fatoumata Damian M.D., PGY-1 Department of Internal Medicine END OF DAILY PROGRESS NOTE Hospital Course Stephanie Chairez is a 84 year old female with a PMH ofHTN and HLD who presentsafter a mechanical fall on her left side resulting in left femoral neck fracture. Orthoperformed L hip arthroplasty 03/13/2020. Given 1U pRBC for post-surgical anemia. D/c planning - Lovenox 40mg daily for 28 days post-op - f/u with [facility] clinic (Dr. Calabrese) after discharge - f/u with ortho (Dr. Bruno) in 2 weeks Resolved Problems - Fever of uncertain etiology - Hyperkalemia ESSOGRAPH OPERATOR Associated attestation - Kathleen Muñiz MD - 03/17/2020 6:33 PM CST I saw and examined the patient on 03/17/2020 and agree with the resident's note as written by Dr. Damian. I actively participated in the decision-making process. Please see the resident's note for additional details. The current medical regimen is effective; continue present plan and medications for The primary encounter diagnosis was Closed displaced fracture of left femoral neck. Diagnoses of Fall, initial encounter, Closed fracture of left hip, initial encounter, and Angina pectoris with documented spasm were also pertinent to this visit. Hyponatremia, symptomatic anemia--transfuse--Hgb=6.9. do guiaic. K high--better. K (mmol/L) Date Value 03/17/2020 4.8 Recent Labs 03/17/20 0954 NA 119* Maria Alejandra Melchor, RN - 03/16/2020 4:00 PM CSTCARE MANAGEMENT PROGRESS NOTE CM met with patient and family at bedside to update them on discharge plan and timing of transfer [facility], [address] - 5th floor, [facility] [address], ph. [phone], fx. [phone]. Transfer is pending replenishment of sodium level and acceptance post labs. Most likely discharge tomorrow to rehab facility. Family and patient agreeable to this. Maria Alejandra Melchor RN, BSN Patient Care Provider [facility]-Care Management [email or web address] Office: [phone] (not for patient use) ESSOGRAPH OPERATOR Torsten Vang, OT - 03/16/2020 2:56 PM CSTOCCUPATIONAL THERAPY NOTE: Discharge Recommendations: Therapy Needs and Potential:- Patient would benefit from continued skilled occupational therapy services to address: Decline in basic activities of daily living, Decline in instrumental activities of daily living, Decreased strength, Decreased range of motion and Decreased endurance - Patient demonstrates good potential to improve and meet therapy goals with further skilled occupational therapy services. - Patient appears motivated to improve their B/IADLs and return to their previous level of function. - Patient demonstrates ability to tolerate at least 60-90 minutes of active participation in occupational therapy. - Patient able to follow commands: 1-step Yes, Multi-step Yes, Inconsistencies No Challenges to Home Transition:- Requires physical assistance for BADLS - Requires physical assistance for IADLS - Requires supervision or verbal cues for BADLS - Requires supervision or verbal cues for IADLS - Limited caregiver availability - Decreased safety awareness/judgement - Increased risk of falls - Environmental barriers Equipment Recommendations:Tub transfer bench and RW, hip kit Precautions: WB: WBAT L LE General: PPE Utilized: Gloves and Surgical mask, Fall and Posterior hip precautions Bracing: Hip abduction wedge S: Patient agreeable to participate in occupational therapy. I feel so much better today PAIN Pre-treatment: 3/10 pain at left leg. Post-treatment: 3/10 pain at left leg. reports taking pain meds and Repositioning Provided. O: Patient found semireclining in bed. Vital signs stable . Patient seen this date for the following: ADL Training Grooming: SBA/setup at seated level UB Dressing: SBA/Setup LB Dressing: Maximal assist donning socks Toilet Transfer: [facility] Toileting Hygiene: Maximal assist. for cleanup Patient maintains hip precautions throughout session. Patient educated about the following adaptive equipment: hip kit, Tub transfer bench. Handout issued, Yes. Patient educated about fall prevention and safety awareness. Handout issued, No. Patient educated about the following: Adaptive equipment , ADL training, Compensatory techniques/adaptive strategies, Fall prevention, General strengthening, Safety awareness and Hip precautions. Handout issued, No. - cued on AE for ADL's Patient left sitting upright in bedside chair with call melendez in reach. Vital signs stable and P[employer] alarm engaged, nursing staff notified. A: Patient exhibited Good participation in therapy and responded well to treatment this session. Patient is progressing toward goal(s) 1, 2, 3, 4, 5 and 6. Pain, Poor endurance and Persistent weakness remain(s) a limiting factor. Patient continues to present with Decreased independence with ADL, Decreased functional ROM, Decreased strength/endurance for functional activity and Impaired safety awareness and will benefit from continued OT services to address above areas and improve functional status. P: Patient/Caregivier Education, Equipment recommendations, Daily living activities and Therapeutic exercises GOAL(S): By discharge, patient will increase independence in daily living skills as follows: 1 Patient will perform 3 in 1 BSC transfer with CGA. 2 Patient will perform LB dressing with minimal assistance with AE. 3 Patient will complete grooming tasks with independence and CGA while standing at the sink. 4 Patient will complete toileting hygiene, including clothing management, with minimal assistance. 5 Patient will increase endurance for functional activity as evidenced by ability to sustain 20 minutes of active participation. 6 Patient/caregiver will verbalize/demonstrate understanding/proficiency in the following home programs: Adaptive equipment , ADL training, Compensatory techniques/adaptive strategies, Fall prevention,General strengthening, Safety awareness and Hip precautions Jesse LOUISE/Melissa Supervising OTR Faith Lowery Total Timed Treatment Codes: 53 Min Total Treatment Time: 53 Min Aylin Ellington PTA - 03/16/2020 10:13 AM ADDRESSOGRAPH OPERATOR Physical Therapy Progress Note: Discharge Recommendations: Therapy Needs and Potential: Patient would benefit from continued physical therapy services to address: decline in bed mobility decline in transfers decline in gait and/or balance decline in stair/step negotiation decreased strength decreased endurance Patient demonstrates good potential to improve and meet therapy goals with further physical therapy services. Patient appears motivated to improve their functional mobility and return to their previous levelof function. Patient demonstrates ability to tolerate atleast 60-90 minutes of physical therapy with active participation. Challenges to Home Transition: increased risk of falls decreased safety awareness environmental barriers Equipment recommendations: Rolling walker PAIN: denies pain PRECAUTIONS: Weight Bearing Precaution: WBAT, Left, LE General Precautions: PPE used:Gloves and Surgical mask, General, Fall, Posterior Hip Bracing/Cast present or required:Hip abduction wedge while in bed S: Patient agreeable to working with PT. O: Patient met Up in chair. Patient seen for the following: Bed mobility: not tested Transfers: Sit to stand: CGA using Rolling Walker Stand to sit: CGA using Rolling Walker Static/dynamic standing balance: Fair+ Verbal cueing provided for correct hand placement and correct use of AD Gait: Assisted patient with ambulation as follows: about 80 feet using Rolling Walker and CGA Patient presenting with Step-to gait pattern. Patient with minimal instability and no LOB. Patient with several standing rest breaks elicited by fatigue cued patient on postural adjustments and AD management Therapeutic exercise: patient educated in Compensatory techniques/adaptive strategies, Energy conservation, Fall prevention, General strengthening, Positioning, Safety awareness and Hip precautions., instructed patient in the following: ankle pumps, quad sets, heel slides, long arc quads, patient/caregiver demonstrates u nderstanding of instructions. After session, patient Up in chair with Rice alarm on and abduction wedge placed. Call melendez provided. A: Patient tolerated session well. Patient progressing toward goals . P: PT will - progress mobility. Total Timed Tx Codes in Minutes: 57 Min Total Treatment Time in Minutes: 57 Min Aylin Garcia PTA Supervising PT Senait Ruby ESSOGRAPH OPERATOR Maria Alejandra Melchor RN - 03/16/2020 9:27 AM CSTCARE MANAGEMENT PROGRESS NOTE RAVI spoke to patients son, Raciel Chairez, , regarding patients discharge plan. RAVI explained that a referral is in place at [facility] as per patients request and it is pending insurance authorization at this time. We are expecting authorization today and patient shouldbe able to transfer this afternoon. RAVI explained that we would arrange transportation for patient to next level of care as well. Raciel Chairez expressed some concerns about nursing care and CM stated that those would be passed along to the manager nursing home for him. CM called and spoke to Anay Jorge, manager nursing home to relay the patient's sons concerns regardingnursing care, which include the answering of call lights and telephones. Maria Alejandra Melchor RN, BSN Patient Care Provider [facility]-Care Management [email or web address] Office: [phone] (not for patient use) Sandro Murguia MD - 03/16/2020 7:29 AM CST Orthopedic Surgery Progress Note Date of Service: 03/16/2020 07:29 S: Stephanie Chairez is a 84 year old female with left femoral neck fracture s/p left hip hemiarthroplasty (03/13/2020). 24 hour events: - No acute events overnight. Patient resting comfortably on rounds this morning. O: Temp: [36 C (96.8 F)-37.8 C (100 F)] Pulse: [62-77] Resp: [18-20] BP: (134-161)/(50-64) MAP (mmHg): [82-90] General: AAOX3; no apparent distress Cardiac: regular rate Pulmonary: unlabored respirations Extremity: LLE- Dressing c/d/i BCR. Foot WWP. Palpable dp pulse. LABORATORY Hemogram Recent Labs 03/12/20204803/13/20 0531 03/13/20 1748 WBC 8.95 7.48 7.81 HGB 11.8 11.0* 9.2* HCT 34.1* 31.2* 27.5* PLT 118* 138* 106* Chemistry Recent Labs 03/12/202048 NA 130* K 3.7 CL 101 TCO2 26 BUN 19 CREAT 0.98 GLU 97 CA 7.0* Coagulation Profile Recent Labs 03/12/20204803/13/20 0531 PTPAT 11.5 12.7* PTINR 1.0 1.1 APTTPAT 27 -- Urinalysis Recent Labs 03/13/20 1439 UPROTEIN Negative UGLUCOSE Normal UKETONES Negative UBILI Negative ULEUKEST Negative UNITRITE Negative USPGRAV 1.011 LFTs Recent Labs 03/12/202048 AST 27 ALT 19 ALKPHOS 73 BILIT 0.9 A/P Stephanie Chairez is a 84 year old female with left femoral neck fracture s/p left hip hemiarthroplasty (03/13/2020). - WBAT left lower extremity - Lovenox 40mg daily for 28 days post-op. Sequential compression devices bilaterally. - Periop Ancef complete - Pain management per primary - Patient will need f/u with bone health clinic (Dr. Calabrese) after discharge - Follow up with Dr. Bruno in clinic in 2 weeks Sandro Hicks MD Orthopaedic Surgery Resident, PGY4 03/16/2020 07:29 ESSOGRAPH OPERATOR Associated attestation - Latasha Bruno MD - 03/16/2020 8:09 AM ADDRESSOGRAPH OPERATOR 03/16/2020 Patient seen and examined and agree with the Fatoumata Waktins MD - 03/16/2020 6:23 AM CST Brian Progress Note Date of Service: 03/16/2020 12:12 Chief Complaint: left hip pain 24-HOUR EVENTS: - NAEO SUBJECTIVE: Ms. Chairez called the nurse for assistance to go to the restroom to urinate, she could not hold it andurinated on her bed by the time nurse come. She request a bath. She had a large bowel movement last night. Denies pain, chills, fever, CP, SOB, palpitations, changes in vision. OBJECTIVE Vitals: 03/15/20 2333 03/16/20 0334 03/16/20 0748 03/16/20 1100 BP: (!) 147/50 (!) 145/55 (!) 153/51 133/63 BP Location: Left arm Left arm Left arm Left arm Patient Position: Supine Supine Supine Sitting Pulse: 67 70 69 65 Resp: 18 18 18 18 Temp: 36.9 C (98.4 F) 37.8 C (100 F) 36.8 C (98.3 F) 36.7 C (98 F) TempSrc: Oral Oral Oral Oral SpO2: 94% 92% 93% 95% Weight: On room air Intake/Output Summary (Last 24 hours) at 03/16/2020 1212 Last data filed at 03/16/2020 0827 Gross per 24 hour Intake Output 500 ml Net -500 ml Physical exam General: alert and oriented x 4 (person, place, date/time and situation); no apparent distress Lungs: clear to auscultation bilaterally Cardio: S1, S2 normal; no murmurs, rubs or gallops, regular rate and rhythm Abdomen: soft; non-tender; non-distended; normoactive bowel sounds Extremities: no cyanosis, or edema. Pulses palpable, extremities warmth symmetrically. Skin: no rashes. S/p hip arthroplasty dressing noted on left hip, clean borders, no bruises or ecchymoses noted on affected area. Bruises and ecchymoses noted on anterior forearms bilaterally from IVsites. LABS/IMAGING - reviewed, pertinent results as below: Hgb: 11.8 ->11.0 (ortho procedure) -> 9.2 -> 7.7->7.3 Platelets 118-> 138-> 106->111 -> 120 Troponin: 0.050 --> 0.026 Na 130 (03/12/20) -> 115 (03/16/20) K 3.7 (03/12/20) -> 5.2 (03/16/20) Cr 0.98 (03/12/20) -> 1.4 (03/16/20) XR L hip & L femur (03/13/20) Impression: Midly impacted proximal femoral neck fracture. Osteopenia. 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 No BM during hospital stay. - Ortho following: "Lovenox 40mg daily for 28 days post-op. Sequential compression devices bilaterally." - PT/OT following: maximize independence and safety w/functional mobility; ambulation with rolling walker. Acute on Chronic Anemia in the setting of recent orthopedic surgery Chronic thrombocytopenia Hyponatremia, chronic Hyperkalemia RAFI Per patient, has a history of hyponatremia without any diagnosed etiology. Patient is asymptomatic and VSS. RAFI and BMP changes may be post-surgical. - 500cc NS bolus - Repeat H&H, BMP this afternoon Dispo Anticipated Discharge Date: today/tomorrow Barriers to Discharge: hyponatremia Patient seen and discussed with Dr. Muñiz, Geriatrics faculty. Lu Reeves MS3 I personally examined the patient on 03/16/20 and have verified the MS3 medical student documentation and/or findings, including the history, physical exam, and medical decision making. Additionally, Deanne personally performed or re- performed the physical exam and medical decision making activities of this patient's evaluation and management service. Fatoumata Damian M.D., PGY-1 Department of Internal Medicine END OF DAILY PROGRESS NOTE Hospital Course Stephanie Chairez is a 84 year old female with a PMH ofHTN and HLD who presentsafter a mechanical fall on her left side resulting in left femoral neck fracture. Ortho performed L hip arthroplasty 03/13/2020. D/c planning - Lovenox 40mg daily for 28 days post-op - f/u with [facility] (Dr. Calabrese) after discharge - f/u with ortho (Dr. Bruno) in 2 weeks Resolved Problems - Fever of uncertain etiology ESSOGRAPH OPERATOR Associated attestation - Kathleen Muñiz MD - 03/16/2020 7:53 PM CST I saw and examined the patient on 03/16/2020 and agree with the resident's note as written by Dr. Damian. I actively participated in the decision-making process. Please see the resident's note for additional details. We stopped discharge because [id number]--[id number] hyponatremia and mild hyperkalemia. Repeat labs. Hx of prior low Na--as per patient. The current medical regimen is effective; continue present plan and medications for The primary encounter diagnosis was Closed displaced fracture of left femoral neck. Diagnoses of Fall, initial encounter, Closed fracture of left hip, initial encounter, and Angina pectoris with documented spasm were also pertinent to this visit. K (mmol/L) Date Value 03/16/2020 5.2 (H) Recent Labs 03/16/20 1526 NA 116* Torsten Vang, OT - 03/15/2020 12:22 PM CSTOCCUPATIONAL THERAPY NOTE: Discharge Recommendations: Therapy Needs and Potential:- Patient would benefit from continued skilled occupational therapy services to address: Decline in basic activities of daily living, Decline in instrumental activities of daily living, Decreased strength, Decreased range of motion and Decreased endurance - Patient demonstrates good potential to improve and meet therapy goals with further skilled occupational therapy services. - Patient appears motivated to improve their B/IADLs and return to their previous level of function. - Patient demonstrates ability to tolerate at least 60-90 minutes of active participation in occupational therapy. - Patient able to follow commands: 1-step Yes, Multi-step Yes, Inconsistencies No Challenges to Home Transition:- Requires physical assistance for BADLS - Requires physical assistance for IADLS - Requires supervision or verbal cues for BADLS - Requires supervision or verbal cues for IADLS - Limited caregiver availability - Decreased safety awareness/judgement - Increased risk of falls - Environmental barriers Equipment Recommendations:Tub transfer bench and RW, hip kit Precautions: WB: WBAT L LE General: PPE Utilized: Gloves and Surgical mask, Fall and Posterior hip precautions Bracing: Hip abduction wedge S: Patient agreeable to participate in occupational therapy. I feel so much better today PAIN Pre-treatment: 3/10 pain at left leg. Post-treatment: 3/10 pain at left leg. reports taking pain meds and Repositioning Provided. O: Patient found semireclining in bed. Vital signs stable . Patient seen this date for the following: ADL Training Grooming: Minimal assist UB Dressing: SBA/Setup LB Dressing: Maximal assist Toilet Transfer: CGA Toileting Hygiene: Maximal assist. for cleanup Patient maintains hip precautions throughout session. Patient educated about the following adaptive equipment: hip kit, Tub transfer bench. Handout issued, Yes. Patient educated about fall prevention and safety awareness. Handout issued, No. Patient educated about the following: Adaptive equipment , ADL training, Compensatory techniques/adaptive strategies, Fall prevention, General strengthening, Safety awareness and Hip precautions. Handout issued, No. - cued for hip precautions during ADL's Patient left sitting upright in bedside chair with call melendez in reach. Vital signs stable and Poseychair alarm engaged, nursing staff notified. A: Patient exhibited Good participation in therapy and responded well to treatment this session. Patient is progressing toward goal(s) 1, 2, 3, 4, 5 and 6. Pain, Poor endurance and Persistent weakness remain(s) a limiting factor. Patient continues to present with Decreased independence with ADL, Decreased functional ROM, Decreased strength/endurance for functional activity and Impaired safety awareness and will benefit from continued OT services to address above areas and improve functional status. P: Patient/Caregivier Education, Equipment recommendations, Daily living activities and Therapeutic exercises GOAL(S): By discharge, patient will increase independence in daily living skills as follows: 1 Patient will perform 3 in 1 BSC transfer with CGA. 2 Patient will perform LB dressing with minimal assistance with AE. 3 Patient will complete grooming tasks with independence and CGA while standing at the sink. 4 Patient will complete toileting hygiene, including clothing management, with minimal assistance. 5 Patient will increase endurance for functional activity as evidenced by ability to sustain 20 minutes of active participation. 6 Patient/caregiver will verbalize/demonstrate understanding/proficiency in the following home programs: Adaptive equipment , ADL training, Compensatory techniques/adaptive strategies, Fall prevention,General strengthening, Safety awareness and Hip precautions Jesse LOUISE/Melissa Supervising OTR Faith Lowery Total Timed Treatment Codes: 56 Min Total Treatment Time: 56 Min Maria Alejandra Donnelly RN - 03/15/2020 12:06 PM CSTCARE MANAGEMENT PROGRESS NOTE CM spoke to Sandhya at [facility], [address] [place] [address], ph. [phone], fx. [phone] regarding referral. They have received referral and are processing it and will likely have a bed available later today or tomorrow morning. Primary team states patient could be ready as soon as she has a bowl movement. This was relayed to the accepting facility. CM to follow up. Maria Alejandra Melchor RN, BSN Patient Care Provider [facility]-Care Management [email or web address] Office: [phone] (not for patient use) ESSOGRAPH OPERATOR Aylin Garcia PTA - 03/15/2020 11:26 AM CSTPhysical Therapy Progress Note: Discharge Recommendations: Therapy Needs and Potential: Patient would benefit from continued physical therapy services to address: decline in bed mobility decline in transfers decline in gait and/or balance decline in stair/step negotiation decreased strength decreased endurance Patient demonstrates good potential to improve and meet therapy goals with further physical therapy services. Patient appears motivated to improve their functional mobility and return to their previous levelof function. Patient demonstrates ability to tolerate atleast 60-90 minutes of physical therapy with active participation. Challenges to Home Transition: increased risk of falls decreased safety awareness environmental barriers Equipment recommendations: wheelchair at this time. Anticipate pt will be able to mobilize with RW as she improves PAIN: denies pain PRECAUTIONS: Weight Bearing Precaution: WBAT, Left, LE General Precautions: PPE used:Gloves and Surgical mask, General, Fall, Posterior Hip Bracing/Cast present or required:Hip abduction wedge while in bed S: Patient agreeable to working with PT. O: Patient met Semi reclined in bed. Patient seen for the following: Bed mobility: Supine to sit: Minimal assist Scooting to edge of bed: Minimal assist cued patient on performing mobility while maintaining precautions Transfers: Sit to stand: Minimal assist using Rolling Walker Stand to sit: CGA using Rolling Walker Static/dynamic standing balance: Fair+ Verbal cueing provided for correct hand placement and correct use of AD Gait: Assisted patient with ambulation as follows: about 14 feet using Rolling Walker and CGA Patient presenting with Step-to gait pattern. Patient with minimal instability and no LOB. cued patient on postural adjustments and AD management Therapeutic exercise: patient educated in Compensatory techniques/adaptive strategies, Energy conservation, Fall prevention, General strengthening, Positioning, Safety awareness and Hip precautions., instructed patient in the following: ankle pumps, quad sets, heel slides, long arc quads, patient/caregiver demonstrates u nderstanding of instructions. After session, patient Semi reclined in bed with Rice alarm on and abduction wedge placed. Call melendez provided. A: Patient tolerated session well. Patient progressing toward goals . P: PT will - progress mobility. Total Timed Tx Codes in Minutes: 54 Min Total Treatment Time in Minutes: 54 Min Aylin Garcia PTA Supervising PT Senait Ruby ESSOGRAPH OPERATOR Maria Alejandra Melchor RN - 03/15/2020 10:53 AM CSTCARE MANAGEMENT PROGRESS NOTE CM met with patient at bedside to discuss her discharge plans and patient stated that she would liketo discharge to [facility], [address] [facility] [address] [place] [address], ph. [phone], fx. [phone] for inpatient rehabilitation. CM consulted with the primary team to discuss their feeling on the patients potential for rehab upon discharge. Team feels patient has good potential for rehab to previous level of independence with IRF. Referral sent to [facility] per patient request. Maria Alejandra Melchor RN, BSN Patient Care Provider [facility]-Care Management [email or web address] Office: [phone] (not for patient use) Sandro Murguia MD - 03/15/2020 7:10 AM CST Orthopedic Surgery Progress Note Date of Service: 03/15/2020 07:10 S: Stephanie Chairez is a 84 year old female with left femoral neck fracture s/p left hip hemiarthroplasty (03/13/2020). 24 hour events: - No acute events overnight. - Patient feeling well, but states that she has not had a BM yet - Denies fevers, chills, nausea, vomiting, chest pain and shortness of breath. O: Temp: [35.6 C (96 F)-36 C (96.8 F)] Pulse: [61-68] Resp: [16-18] BP: (100-214)/(55-98) MAP (mmHg): [81-123] General: AAOX3; no apparent distress Cardiac: regular rate Pulmonary: unlabored respirations Extremity: LLE- Dressing c/d/i Fires GSC, FHL, EHL, TA.SILT S/S/DP/SP/T nerve distributions. BCR. Foot WWP. Palpable dp pulse. LABORATORY Hemogram Recent Labs 03/12/20204803/13/20 0531 03/13/20 1748 WBC 8.95 7.48 7.81 HGB 11.8 11.0* 9.2* HCT 34.1* 31.2* 27.5* PLT 118* 138* 106* Chemistry Recent Labs 03/12/202048 NA 130* K 3.7 CL 101 TCO2 26 BUN 19 CREAT 0.98 GLU 97 CA 7.0* Coagulation Profile Recent Labs 03/12/20204803/13/20 0531 PTPAT 11.5 12.7* PTINR 1.0 1.1 APTTPAT 27 -- Urinalysis Recent Labs 03/13/20 1439 UPROTEIN Negative UGLUCOSE Normal UKETONES Negative UBILI Negative ULEUKEST Negative UNITRITE Negative USPGRAV 1.011 LFTs Recent Labs 03/12/202048 AST 27 ALT 19 ALKPHOS 73 BILIT 0.9 A/P Stephanie Harrington Moff is a 84 year old female with left femoral neck fracture s/p left hip hemiarthroplasty (03/13/2020). - WBAT left lower extremity - Lovenox 40mg daily for 28 days post-op. Sequential compression devices bilaterally. - Periop Ancef complete - Pain management per primary - Patient will need f/u with bone health clinic (Dr. Calabrese) after discharge - Follow up with Dr. Bruno in clinic in 2 weeks Sandro Hicks MD Orthopaedic Surgery Resident, PGY4 03/15/2020 07:10 ESSOGRAPH OPERATOR Associated attestation - Latasha Bruno MD - 03/15/2020 11:57 AM ADDRESSOGRAPH OPERATOR 03/15/2020 Patient seen and examined and agree with the Fatoumata Watkins MD - 03/15/2020 6:12 AM CST Brian Progress Note Date of Service: 03/15/2020 13:37 Chief Complaint: Left hip pain 24-HOUR EVENTS: - Episode of Hypertension 214/78 mmHg at 16:27 on 03/14/20 resolving to 166/57 mmHg at 05:19 on 03/15/20. Given Hydralazine 25 mg PO two separate occasions at 16:47 and 22:05 on 03/14/20. SUBJECTIVE: Ms. Chairez was able to sleep overnight, no complains of hip pain. Denied CP, SOB, vertigo, dizziness,headache, changes in vision, chills, fever. No BM movements during her hospital stay. Brief Social Hx: She lives with her who is losing his vision due to cataracts. She would normally do her ADLs independently and would assist her from his vision impairment. She was able to ambulate w/o assisted device, but would sometimes use a walker for the comfort of sitting. She agrees to go to a rehabilitation facility if that were to be better for her; however, she is concerned for the insurance coverage, she is on medicare and [employer] [facility] [place]. PHYSICAL EXAM: Vitals: 03/15/20 0519 03/15/20 0737 03/15/20 0849 03/15/20 1100 BP: (!) 166/57 (!) 161/50 (!) 144/64 BP Location: Right arm Right arm Right arm Patient Position: Supine Supine Supine Pulse: 65 68 70 75 Resp: 18 18 18 18 Temp: 35.9 C (96.7 F) 36.8 C (98.3 F) 36.4 C (97.5 F) TempSrc: Oral Oral Oral SpO2: 92% 92% 93% 95% Weight: Intake/Output Summary (Last 24 hours) at 03/15/2020 1337 Last data filed at 03/15/2020 0855 Gross per 24 hour Intake 600 ml Output 1400 ml Net -800 ml General: alert and oriented x 4 (person, place, date/time and situation); no apparent distress Neck: No bruit Lungs: clear to auscultation bilaterally Cardio: S1, S2 normal; no murmurs, rubs or gallops Abdomen: soft; non-tender; non-distended; normoactive bowel sounds Extremities: no clubbing, cyanosis, or edema Skin: no rashes Neuro: no focal deficits LABS/IMAGING - reviewed, pertinent results as below: Hgb: 11.8 ->11.0 (ortho procedure) -> 9.2 -> 7.7 Platelets 118-> 138-> 106->111 Troponin: 0.050 --> 0.026 XR L hip & L femur (03/13/20) Impression: Midly impacted proximal femoral neck fracture. Osteopenia. 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 No BM during hospital stay. - Ortho following: DVT ppx 40 mg daily x 28 days post-op, SCDs - PT/OT following: maximize independence and safety w/functional mobility Acute on Chronic Anemia in the setting of recent orthopedic surgery Chronic thrombocytopenia - monitor daily H/H Patient seen and discussed with Dr. Muñiz, Geriatrics faculty. Lu Reeves MS3 I personally examined the patient on 03/15/20 and have verified the 3rd year medical student documentation and/or findings, including the history, physical exam, and medical decision making. Additionally, I have personally performed or re-performed the physical exam and medical decision making activities of this patient's evaluation and management service. Fatoumata Damian M.D., PGY-1 Department of Internal Medicine END OF DAILY PROGRESS NOTE Resolved Problems Fever of uncertain etiology, resolved Patient had a single reading of fever on 03/13/20, no focal signs of infection. Bx, UA, and CXR did not suggested infectious process. Current Facility-Administered Medications: Polyethylene Glycol 3350 (MIRALAX) powder 17 g, 17 g, Oral, BID MEALS, Fatoumata Damian MD, 17 g at 03/15/20 0852 sennosides-docusate sodium (SENOKOT-S) 8.6-50 mg per tablet 1 tablet, 1 tablet, Oral, BID, Beena Bauer MD carvediloL (COREG) tablet 12.5 mg, 12.5 mg, Oral, BID MEALS, Jevon العراقي MD, 12.5 mg at 03/15/20 08 cloNIDine (CATAPRES) tablet 0.1 mg, 0.1 mg, Oral, BID, Jevon العراقي MD, 0.1 mg at 03/15/20 08 traMADoL (ULTRAM) tablet 50 mg, 50 mg, Oral, Q8HPRN, Jevon العراقي MD valsartan (DIOVAN) tablet 160 mg, 160 mg, Oral, BID, Jevon العراقي MD, 160 mg at 03/15/20 08 acetaminophen (TYLENOL) tablet 650 mg, 650 mg, Oral, Q6HPRN, Noah, Myla, DO, 650 mg at 03/14/20 1512 enoxaparin (LOVENOX) injection 40 mg, 40 mg, Subcutaneous, Q24H, Beena Bauer MD, 40 mg at 03/15/20 0851 aspirin EC tablet 81 mg, 81 mg, Oral, DAILY, Sheung, Myla, DO, 81 mg at 03/15/20 0852 atorvastatin (LIPITOR) tablet 20 mg, 20 mg, Oral, QHS, Sheung, Myla, DO, 20 mg at 03/14/202058 furosemide (LASIX) tablet 40 mg, 40 mg, Oral, DAILY, Sheung, Myla, DO, 40 mg at 03/15/20 0852 No current facility-administered medications on file prior to encounter. Current Outpatient Medications on File Prior to Encounter Medication Sig Dispense Refill mirtazapine 15 mg tablet Take 1 tablet by mouth at bedtime. 30 tablet 1 hydrALAZINE 25 mg tablet Take 1 tablet [...] tablet by mouth daily. 90 tablet 1 aspirin (ASPIRIN LOW DOSE) 81 mg EC tablet Take 81 mg by mouth daily. Hospital Course Stephanie Chairez is a 84 year old female with a PMH of ESSOGRAPH OPERATOR Associated attestation - Kathleen Muñiz MD - 03/15/2020 6:41 PM CSTI saw and examined the patient on 03/15/2020 and agree with the resident's note as written by Dr. Damian. I actively participated in the decision-making process. Please see the resident's note for additional details. ++constipated--miralax, seen BID--continue rx for the s/p hip fracture, hypertension--add amlodipine----of clonidine. Discharge in am--if +BM and SBP <160 Jevon العراقي MD - 03/14/2020 7:16 AM CST Brian Progress Note Date of Service: 03/14/2020 07:16 Chief Complaint: Left hip pain 24-HOUR EVENTS: - POD1 - L hip arthroplasty by ortho - c/o SOB, CP overnight - satting well, 2 L NC for comfort - EKG normal, troponin 0.050 > 0.026 SUBJECTIVE: Patient denies L hip pain this morning. Denies chest pain, SOB, abdominal pain. Reports left foot/ankle feeling "different" this morning after the SCDs were applied, unable to provide any additional description (loosened the SCDs slightly for patient). Last BM was 3 days ago. OBJECTIVE: Temp: [34.8 C (94.7 F)-36.2 C (97.1 F)] Heart Rate (monitor): [62] Pulse: [55-66] Resp: [14-18] BP: (125-165)/(41-59) Arterial Line BP: (80-172)/(24-48) MAP (mmHg): [69-94] Vitals: not on NC; BPs 120-160s/40-50s Intake/Output Summary (Last 24 hours) at 03/14/2020 0716 Last data filed at 03/14/2020 0530 Gross per 24 hour Intake 1000 ml Output 1650 ml Net -650 ml General: alert and oriented x 4 (person, place, date/time and situation); no apparent distress Lungs: clear to auscultation bilaterally Cardio: S1, S2 normal; no murmurs, rubs or gallops, regular rate and rhythm Abdomen: soft; non-tender; non-distended; normoactive bowel sounds Extremities: No cyanosis; bandage at L hip c/d/i, no surrounding bruising or hematoma, soft to palpation Skin: no rashes LABS/IMAGING - reviewed, pertinent results as below: Hgb: 11.8 / 11.0 (ortho procedure) 9.2 UA (03/13): negative bacteria, nitrite, leuk leonarda; WBC 2 BCx (03/13): NG at 24h CXR (03/13) Impression: No acute cardiac pulmonary process. ASSESSMENT/PLAN Stephanie Chairez is a 84 year old female admitted to the hospital with: Fever of uncertain etiology, resolved The patient had single reading of fever 03/13 with no focal signs of infection. CXR appeared normal. BCx pending. UA negative. Likely erroneous reading given no subsequent fevers and negative work-up thus far. - follow-up BCx Closed L femoral neck fracture s/p mechanical fall s/p L hip arthroplasty 03/13 Osteoporosis with fragility fracture Compression fracture of L3. Chronic low back pain. 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 - monitor daily H/H - Tramadol TID prn for pain control - Miralax - Ortho following - DVT ppx: 40 mg daily x 28 days post-op, SCDs - consult PT/OT - can remove henning once PT/OT gets patient ambulatory Patient seen and discussed with Dr. Coyne, Geriatrics faculty. Jevon العراقي MD Department of Internal Medicine PGY-1, [place] Team Doctor's Number: [id number] END OF DAILY PROGRESS NOTE Chronic condition HTN HLD Hospital Course Stephanie Harrington Moflana is a 84 year old female with a PMH of HTN and HLD who presents after a mechanical fall on her left side resulting in left femoral neck fracture. Ortho performed L hip arthroplasty03/13. Discharge Planning - f/u with bone clinic after d/c with Dr. Calabrese (ortho) Current Medications, reviewed: Current Facility-Administered Medications Medication Dose Route Frequency Last Rate Last Admin acetaminophen (TYLENOL) tablet 650 mg 650 mg Oral Q6HPRN 650 mg at 03/13/20 0517 enoxaparin (LOVENOX) injection 40 mg 40 mg Subcutaneous Q24H lactated ringers IV infusion 1,000 mL 1,000 mL IV Infusion CONTINUOUS 42 mL/hr at 03/13/20 20633,000 mL at 03/13/20 1458 Polyethylene Glycol 3350 (MIRALAX) powder 17 g 17 g Oral DAILY 17 g at 03/13/20 0825 aspirin EC tablet 81 mg 81 mg Oral DAILY 81 mg at 03/13/20 0919 atorvastatin (LIPITOR) tablet 20 mg 20 mg Oral QHS 20 mg at 03/13/20 224 carvediloL (COREG) tablet 12.5 mg 12.5 mg Oral TID MEALS 12.5 mg at 03/13/20 1702 cloNIDine (CATAPRES) tablet 0.1 mg 0.1 mg Oral TID 0.1 mg at 03/13/202244 furosemide (LASIX) tablet 40 mg 40 mg Oral DAILY 40 mg at 03/13/20 08 hydrALAZINE (APRESOLINE) tablet 25 mg 25 mg Oral BID 25 mg at 03/13/202244 mirtazapine (REMERON) tablet 15 mg 15 mg Oral QHS 15 mg at 03/13/20 224 traMADoL (ULTRAM) tablet 50 mg 50 mg Oral TID 50 mg at 03/13/202244 valsartan (DIOVAN) tablet 160 mg 160 mg Oral DAILY 160 mg at 03/13/20 1421 ESSOGRAPH OPERATOR Associated attestation - Aylin Coyne MD - 03/14/2020 2:[address] discussion with Dr. العراقي, I examined this patient. I agree with resident's note with the following exception(s): Patient looks well, doing OK post-op. She had some SOB overnight, perhaps anxiety after we re-discussed together. None now. Lungs clear. No volume overload. Meds again reconciled together at bedside and adjusted to home regimen with addition of course of pain control and bowel regimen. She has questions about possible COVID vaccination IMTIAZ and we can regroup closer to discharge on this. She has questions about her chronic R hip pain that she was going for MRI for at time of fall with injury - I can't find great understanding of what was being pursued based on the outpatient notes. These needs will need to be addressed as we see her tolerance of PT and get closer to discharge. Aylin Coyne MD Geriatric Faculty Desmond Sherwood MD - 03/14/2020 6:58 AM CST Orthopedic Surgery Progress Note Date of Service: 03/14/2020 06:58 S: Stephanie Chairez is a 84 year old female with left femoral neck fracture s/p left hip hemiarthroplasty (03/13/2020). 24 hour events: -NAEO. -Pain well-controlled and patient comfortable. -Denies fevers, chills, nausea, vomiting, chest pain and shortness of breath. O: Temp: [34.8 C (94.7 F)-37.3 C (99.2 F)] Heart Rate (monitor): [62] Pulse: [55-66] Resp: [14-18] BP: (125-163)/(41-81) Arterial Line BP: (80-172)/(24-48) MAP (mmHg): [69-100] General: AAOX3; no apparent distress Cardiac: regular rate Pulmonary: unlabored respirations Extremity: LLE- Dressing c/d/i Fires GSC, FHL, EHL, TA.SILT S/S/DP/SP/T nerve distributions. BCR. Foot WWP. Palpable dp pulse. LABORATORY Hemogram Recent Labs 03/12/20204803/13/20 0531 03/13/20 1748 WBC 8.95 7.48 7.81 HGB 11.8 11.0* 9.2* HCT 34.1* 31.2* 27.5* PLT 118* 138* 106* Chemistry Recent Labs 03/12/202048 NA 130* K 3.7 CL 101 TCO2 26 BUN 19 CREAT 0.98 GLU 97 CA 7.0* Coagulation Profile Recent Labs 03/12/20204803/13/20 0531 PTPAT 11.5 12.7* PTINR 1.0 1.1 APTTPAT 27 -- Urinalysis Recent Labs 03/13/20 1439 UPROTEIN Negative UGLUCOSE Normal UKETONES Negative UBILI Negative ULEUKEST Negative UNITRITE Negative USPGRAV 1.011 LFTs Recent Labs 03/12/202048 AST 27 ALT 19 ALKPHOS 73 BILIT 0.9 A/P Stephanie Chairez is a 84 year old female with left femoral neck fracture s/p left hip hemiarthroplasty (03/13/2020). - WBAT left lower extremity - Lovenox 40mg daily for 28 days post-op. Sequential compression devices. - Periop Ancef complete - Pain management per primary - Patient will need f/u with bone health clinic (Dr. Calabrese) after discharge Desmond Sherwood MD - [facility] Ortho ESSOGRAPH OPERATOR Associated attestation - Latasha Bruno MD - 03/14/2020 11:06 AM ADDRESSOGRAPH OPERATOR 03/14/2020 Patient seen and examined and agree with the noteAndsusan, Jair Anderson RN - 03/13/2020 3:35 PM CSTCare Management Social Functional Assessment Patient Name: Stephanie Chairez Age: [age] year old Sex: female Patient's Previous Admission Date at [facility]: 04/06/2016 Patient lives with her spouse. Patient has children for support. Patient was functionally independent before admission. PT/OT evaluation is pending. Per patient, her doctors say that she may need inpatient rehab placement. If medical team/rehab services determines that patient would be rehab placement appropriate, patient would like referral sent to [facility]. Patient asking about making her son and daughter MPOA and MPOA form emailed to patient's son for him to review. Current diagnosis and co-morbidities: Closed Displaced Fracture of Left Femoral Neck Readmission Questions: Was patient discharged from any acute care hospital within the last 30 days: No Social Functional Assessment: Primary language spoken/preferred: Vietnamese Mental Status: Alert & Oriented to Person,Place & Time Information given by: Self;Child Patient's support system: Spouse;Child Name and number of support system: Lucas Chairez (spouse) [phone]; Eduarda Mihaela (child) [phone]; Raciel Chairez Jr. (child) [phone] [email or web address] Primary Duty Engineer: Self;Same as Support System MPOA: No Living Arrangement: Home Address of living arrangement : [address] [place] [address] Persons living in home: Spouse Names & numbers of persons living in home: Lucas Chairez (spouse) [phone] Barriers to returning home: Declining function Baseline functional status- ambulation: Independent Functional status-baseline personal care: Independent Baseline functional status- driving: Independent Baseline functional status- grocery shopping: Independent Functional status-baseline housekeeping: Independent Functional status-baseline meal prep: Independent Current functional status same as prior: No Current functional status- ambulation: Requires minimal to moderate assistance Current functional status- personal care: Dependent Current functional status- driving: Dependent Current functional status- grocery shopping: Dependent Current functional status-house keeping: Dependent Current functional status- meal preparation: Dependent Do you have a PCP?: Yes Name of PCP: Maxime Gamez MD Home Health Care Agency: No Provider Services: No DME Company: No Equipment: None Hemodialysis: No Community resources utilized: None Funding Resources: Medicare A & B;Commercial(Secondary: COMMERCIAL NON- CONTRACT GENERIC) Prescription coverage plan: Commercial Pharmacy where meds are filled: Other Other pharmacy: [id number] [place] [id number] Anticipated services prior to disharge: Continue Medical Eval;Other Other anticipated service prior to discharge: PT/OT eval Expected mode of discharge transportation: Same as support system Additional Recommendations for DC: Patient lives with her spouse. Patient has children for support. Patient was functionally independent before admission. PT/OT evaluation is pending. Per patient, her doctors say that she may need inpatient rehab placement. If medical team/rehab services determines that patient would be rehab placement appropriate, patient would like referral sent to [facility]. Additional info required for discharge planning: Pending medical evaluation Recommended discharge plan: New placement SFA Complete: Social Functional Assessment complete: Yes Alcohol Use Screening (AUDIT-C) How often do you have a drink containing alcohol?: Never SCORE: 0 Did patient elect to have resources provided: No Any issues or concerns with obtaining/affording your medications at home: No Are you or your support system able to brain picker medications at discharge: Yes. Patient will have helpobtaining medications via their family. Role of Care Management explained. 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 Please dial the homogenizer operator to reach care management.) Jair Isaac (JV), VERO, MSN Patient Care Provider [facility] Care Management ESSOGRAPH OPERATOR Desmond Sherwood MD - 03/13/2020 6:56 AM CST Orthopedic Surgery Progress Note Date of Service: 03/13/2020 06:56 S: Stephanie Harrington [facility], [place] is a 84 year old female with left femoral neck fracture. 24 hour events: -NAEO. -Pain mildly controlled controlled. Unable to find a comfortable position with her painful broken hip. - Denies fevers, chills, nausea, vomiting, chest pain and shortness of breath. O: Temp: [37.1 C (98.7 F)-39.2 C (102.5 F)] Pulse: [66-79] Resp: [18-20] BP: (93-227)/(47-72) MAP (mmHg): [67-89] General: AAOX3; no apparent distress Cardiac: regular rate Pulmonary: unlabored respirations Extremity: LLE- Leg shortened and externally rotated. +hip pain with log roll Fires GSC, FHL, EHL, TA. SILT S/S/DP/SP/T nerve distributions. BCR. Foot WWP. Palpable dp pulse LABORATORY WBC (10*3/L) Date Value 03/13/2020 7.48 03/12/2020 8.95 HGB (g/dL) Date Value 03/13/2020 11.0 (L) 03/12/2020 11.8 09/22/2019 11.0 (L) PLT (10*3/L) Date Value 03/13/2020 138 (L) 03/12/2020 118 (L) HCT (%) Date Value 03/13/2020 31.2 (L) A/P Stephanie Chairez is a 84 year old female with left femoral neck fracture. - Admit to geriatrics/internal medicine - NPO for surgery- Left hip madi arthroplasty today - Please hold anticoagulation/antiplatelet agents - NWB LLE - Patient will need f/u with bone health clinic (Dr. Calabrese) after discharge - Consent obtained from patient. Desmond Sherwood MD - [facility] Ortho ESSOGRAPH OPERATOR Associated attestation - Latasha Bruno MD - 03/13/2020 9:28 AM ADDRESSOGRAPH OPERATOR 03/13/2020 Patient seen and examined and agree with the Beena Kwong MD - 03/13/2020 6:49 AM CST [facility] Progress Note Date of Service: 03/13/2020 06:49 Chief Complaint: Left hip pain 24-HOUR EVENTS: -febrile to 102.5 at 0500, infectious work-up in process SUBJECTIVE: Brief HPI Ms. Chairez is an 84 y/o female with hx of chronic back pain 2/2 compression Fx who presents with mechanical fall onto left side resulting in hip fracture. She complains of constant pain on left hip. No prior fall, numbness or tingling. Denies taking anyanticoagulation medicine. Today Ms. Chairez says she wants pain medicine. Left hip pain is mild at rest but goes up to 8/10 if she tries to move. She denied fever, chills, SOB, CP, PRINGLE, dizziness. She was able to get restful sleep overnight, didn't woke up from the pain. PHYSICAL EXAM: Vitals: 03/12/20 2106 03/12/20 2316 03/12/20 2321 03/13/20 0456 BP: (!) 199/52 93/54 (!) 151/47 (!) 164/51 BP Location: Left arm Right arm Right arm Patient Position: Supine Supine Supine Pulse: 72 79 78 79 Resp: 18 18 18 Temp: 37.6 C (99.6 F) 39.2 C (102.5 F) TempSrc: Axillary Oral SpO2: 98% 91% 90% Weight: On room air Intake/Output Summary (Last 24 hours) at 03/13/2020 0649 Last data filed at 03/13/2020 0000 Gross per 24 hour Intake 50 ml Output Net 50 ml General: alert and oriented x 4 (person, place, date/time and situation); no apparent distress Lungs: clear to auscultation bilaterally Cardio: S1, S2 normal; no murmurs, rubs or gallops, regular rate and rhythm Abdomen: soft; non-tender; non-distended; normoactive bowel sounds Extremities: No cyanosis, 1+ edema bilaterally, palpable pulses Skin: no rashes LABS/IMAGING - reviewed, pertinent results as below: XR L hip & L femur Impression: Midly impacted proximal femoral neck fracture. Osteopenia. BCx in process CXR: read pending, appears to have mild hilar congestion, but no obvious consolidation ASSESSMENT/PLAN Stephanie Harrington [facility], [place] is a 84 year old female admitted to the hospital with: Fever of uncertain etiology The patient had a single reading of fever early this morning with no focal signs of infection. CXR appears normal and BCx are in process. UA needs to be collected. Given the abrupt rise in temperature and absence of any subjective symptoms, this is likely an erroneous reading. However, will follow-up the results of the infectious w/u to be certain. -follow-up BCx and UA Closed L femoral neck fracture s/p mechanical fall. Osteoporosis with fragility fracture Compression fracture of L3. Chronic low back pain. 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 - Admitted to [facility] 03/12/2020 - Tramadol TID for pain control - Miralax - Ortho following: NPO, NWB LLE, F/u with bone clinic after d/c with Dr. Calabrese -PT/OT after surgery Patient seen and discussed with Dr. Coyne, Geriatrics faculty. Lu Reeves MS3 I personally examined the patient on 03/13/20 and have verified the medical student documentation and/or findings, including the history, physical exam, and medical decision making. Additionally, I have personally performed or re- performed the physical exam and medical decision making activities of this patient's evaluation and management service. Beena Bauer MD Internal Medicine, PGY-3 [facility] Team Pager: [phone] END OF DAILY PROGRESS NOTE Chronic condition HTN HLD Hospital Course Stephanie Chairez is a 84 year old female with a PMH of HTN and HLD who presents after a mechanical fall on her left side resulting in left femoral neck fracture. Ortho is planning for surgery soon. ESSOGRAPH OPERATOR Associated attestation - Aylin Coyne MD - 03/14/2020 8:00 AM CSTI personally examined the patient on 03/[address] Bauer resident's note as written, including any changes or additions that the resident may have made to MS3 Reeves medical student's note. I actively participated in the decision making process. Please see the resident's note for additional details. To OR today. Does have scattered bruising R and L forearms/elbows after fall but has full ROM and denies pain with movement. Monitor. Aylin Coyne MD Geriatric Faculty Christopher Hooker MD - 03/12/2020 9:00 PM CSTNSQIP Marlon Liu MSW - 03/12/2020 8:32 PM CSTSw facilitated phone call between Pt and family. Family is en -route to [facility] now. Gonzalo Correa LCSW Almond Sorter [facility] [phone] documented in this encounter H&P Notes Myla Zamora DO - 03/12/2020 8:11 PM CST MEDICINE RUSLAN H&P Patient Name: Stephanie Chairez : 1935 Admit Date: 03/12/2020 Primary Care Physician: Maxime Gamez CHIEF COMPLAINT Left hip pain HISTORY OF PRESENT ILLNESS Stephanie Chairez is a 84 year old female with history of HTN, HLD, chronic back pain 2/2 compression fracture and DJD admitted for left hip fracture. Patient went to get her MRI done this morning,but she sustained a mechanical fall from height level. Denies loss of consciousness, or head injury.Endorses constant pain on left hip area. Denies prior fall, numbness or tinging of BLE. Denies taking any anticoagulation. Past medical history: has a past medical history of Hyperlipidemia, Hypertension, and Left hip pain (02/11/2016). She also has no past medical history of Diabetes mellitus, Myocardial infarction, or Stroke. Past surgical history: has a past surgical history that includes hysterectomy and eye surgery. Social history: reports that she has never smoked. She has never used smokeless tobacco. She reports current alcohol use of about 4.0 standard drinks of alcohol per week. She reports that she does not use drugs. Family history: family history includes Cancer in her father; Heart in her mother. Allergies: Allergies Allergen Reactions Amlodipine Unknown - See comments MEDICATIONS No current facility-administered medications on file prior to encounter. Current Outpatient Medications on File Prior to Encounter Medication Sig Dispense Refill mirtazapine 15 mg tablet Take 1 tablet by mouth at bedtime. 30 tablet 1 hydrALAZINE 25 mg tablet Take 1 tablet [...] tablet by mouth daily. 90 tablet 1 aspirin (ASPIRIN LOW DOSE) 81 mg EC tablet Take 81 mg by mouth daily. REVIEW OF SYSTEMS Negative except noted on HPI PHYSICAL EXAM Vitals Vitals: 03/12/20 1904 03/12/20 2106 03/12/20 2316 03/12/20 2321 BP: (!) 227/72 (!) 199/52 93/54 (!) 151/47 BP Location: Left arm Right arm Patient Position: Supine Supine Pulse: 66 72 79 78 Resp: 20 18 Temp: 37.1 C (98.7 F) 37.6 C (99.6 F) TempSrc: Axillary SpO2: 98% 91% Weight: Constitutional: mild distress from pain Head: Normocephalic and atraumatic. Eyes: Pupils are equal, round. EOM are normal. Neck: Normal range of motion. Neck supple. Cardiovascular: Normal rate and regular rhythm. No murmur or gallops noted Pulmonary/Chest: CTAB. Effort normal Abdominal: Soft. No tenderness, guarding or rigidity. + Bowel sounds. Musculoskeletal: TTP on posterior left hip. LLE is externally rotated. No ecchymosis noted Neurological: alert and oriented to person, place, and time. Skin: Skin is warm and dry. Psychiatric: normal mood and affect. LABS Reviewed IMAGING XR L hip & L femur IMPRESSION Mildly impacted proximal femoral neck fracture Osteopenia. Chart Review: See HPI ASSESSMENT/PLAN Stephanie Harrington Moff is a 84 year old female with PMH of chronic back pain presenting with: Closed L femoral neck fracture s/p mechanical fall Old compression fracture of L3 DJD at lumbar spine Osteopenia Patient presenting to [facility] after a mechanical fall, and was found o have left hip fracture. Ortho evaluated patient in ED with plan to OR tomorrow. - admit to RG - pain control: tramadol TID - bowel regimen: miralax - ortho following - NPO - NWB LLE - f/u with bone clinic after discharge - Dr. Calabrese - PT/OT after surgery Chronic condition HTN HLD Prophylaxis: SCD Code: FULL Disp: rehab Myla Zamora DO ESSOGRAPH OPERATOR Associated attestation - Kaitlynn Chandler MD - 03/13/2020 11:49 PM CSTI personally examined the patient on 03/12/[address] Zamora's resident H&P note as written. I actively participated in the decision-making process. Please see the resident's note for additional details. Kaitlynn Chandler MD 03/13/2020 11:49 PM documented in this encounter Procedure Notes Mike Rosado MD - 03/13/2020 2:05 PM CST OPERATIVE NOTE Procedure: Left hip hemiarthroplasty [ CPT 37750 ] Date of procedure: 03/13/2020 Faculty Surgeon(s): MD Damion Resident Surgeon(s): Cam Rosado Allen Pre-operative Diagnosis: Left displaced femoral neck fracture Post-operative Diagnosis: same Anesthesia: general - GETA Drains: none Complications: none Estimated Blood Loss: 150 mL Findings: Left femoral neck fracture without signficant degenerative changes in the acetabulum Specimens: None Implants: Implant Name Type Inv. Item Serial No. Manager Rn Case Lot No. LRB No. Used Action STEM, JULIO SIZE 5 ACCOLADE II [id number] #[id number] - S Stem STEM, JULIO SIZE 5 ACCOLADE II [id number]#[id number] Julio [id number] Left 1 Implanted JULIO UNITRAX ENDOPROTHESIS HEAD COMPONENT 46MM HIP [place] [id number] Left 1 Implanted HEAD, JULIO UNITRAX V40 TAPER SLEEVE +0MM #[id number] - S Head HEAD, JULIO UNITRAX V40 TAPER SLEEVE +0MM #[id number] [place] [id number] Left 1 Implanted Indications: Stephanie Chairez is a 84 year old female who sustained a displaced left femoral neck fracture after a ground level fall. Patient was admitted to internal medicine team. Discussed surgical risks including, but not limited to, pain, bleeding, infection, damage to adjacent structures including nerves, blood vessels, soft tissue, and bone; need for further procedures; failure to relieve pain; worsening of pain; hardware failure; loosening and/or wear; change in limb length and/or alignment; fracture; dislocation; decreased strength, sensation and/or ROM; adverse reaction to implantsand/or medicines; DVT/PE; OR; stroke; GI bleed; organ failure; and any other unforeseen circumstances. All questions and concerns answered. Written consent obtained. Narrative The patient was identified in the pre-operative holding area, and the correct surgical site was identified with verbal verification by the patient and marked. The patient was then taken to the operating room and placed supine on the operating table. A time-out was performed between anesthesia and orthopedic faculty. Prophylactic intravenous antibiotics were given. Patient was placed under generalanesthesia. A henning was placed by RN. The patient was than placed in the lateral decubitus position using the peg board positioner. All pressure points were well padded, and an axillary roll was placed. The left lower extremity was then prepped and draped in the standard sterile fashion. A standard posterior approach to the hip was utilized. The incision was made at the proximal aspect of the femur extending proximally along the posterior third of the greater trochanter curving posteriorly towards the posterior iliac spine. The incision was carried down to the fascia giovana, which was incised at its most distal aspect and extended proximally to the level of the greater trochanter. This was then curved posteriorly in line with the fibers of the gluteus elbert, which was then split with bluntfinger dissection. The sciatic nerve was identified and palpated and was protected throughout the entire procedure. Electrocautery was used to incise the bursa and expose the piriformis and short external rotators. The gluteus medius was identified and retracted. The piriformis and external rotators in addition to the capsule were released from the posterolateral aspect of the femur in one sleeve. An L-shaped capsulotomy was completed proximally to expose the acetabulum and the femoral head and neck. The femur was pulled anteriorly and the femoral head was removed with a corkscrew. The femoral neck cutting guide was used to make a neck cut at 1 cm proximal to the lesser trochanter using an oscillating saw. The head was passed to the back table for measurement and measured 46 mm. The acetabulum was inspected, and there were no osteophytes or full thickness cartilage wear. Attention was then turned back to the femur. Using a box cutting chisel, the box cut was made, thenthe canal finder, and last a lateralizing reamer on power. Femoral broaching was then performed until the broach was noted to be stable to rotational stress. The final broach size was 5. The trial head and neck were then placed, and the hip was reduced. The leg length was found to be appropriate and the hip was noted to have excellent stability at flexion/adduction/internal rotation of 90/30/70 using a size 5 femoral stem, 46mm (+0) mm head and standard offset neck. Therefore, the hip was dislocated and the trial components were removed and the femur was well irrigated. A size 5 femoral component was then placed with a standard offset neck and 46mm bipolar femoral head. The hip was then reduced. Again, the leg length was fount to be appropriate and the hip was noted to have excellent stability at flexion/adduction/internal rotation of 90/30/70. There was minimal lateral and longitudinal shuck. The leg was placed on a hearn stand with slight abduction through the remainder of closure. The woundwas then thoroughly irrigated using the jet lavage. The capsule/external rotators were then closed as one sleeve with #5 ethibond through bone tunnels in the posterolateral proximal femur. The sciatic nerve was once again palpated and noted to be supple without tension. A victor manuel-articular cocktail was then injected. The fascial layer was closed with interrupted #1 vicryl and the subcutaneous tissue wasthen approximated with 2-0 Vicryl. The skin was closed with a jamila. Dry dressings were applied then an abduction pillow was placed. The patient remained intubated and was then positioned supine on the hospital bed. An AP plain film of the pelvis was then taken which showed the hip to be reduced andthe components to be well aligned and mu-ism of the leg length. The patient was then extubated and taken to PACU awake and in stable condition ESSOGRAPH OPERATOR Associated attestation - Latasha Bruno MD - 03/14/2020 11:07 AM CSTI am present in OR to supervise the entire casedocumented in this encounter Consult Notes Faith Lowery OT - 03/14/2020 11:52 AM CSTAssociated Order(s): CONSULT ADULT OCCUPATIONAL THERAPY OT GENERAL EVALUATION Consult received via [employer] EMR reviewed and evaluation completed 03/14/20. Patient referred to occupational therapy for evaluation and treatment discharge recommendations. Patient agreeable to participate in occupational therapy.Patient is an 84 YOF admitted after a fall and is now s/p L hemiarthroplasty. Discharge Recommendations: Therapy Needs and Potential:- Patient would benefit from continued skilled occupational therapy services to address: Decline in basic activities of daily living, Decline in instrumental activities of daily living, Decreased strength, Decreased range of motion and Decreased endurance - Patient demonstrates good potential to improve and meet therapy goals with further skilled occupational therapy services. - Patient appears motivated to improve their B/IADLs and return to their previous level of function. - Patient demonstrates ability to tolerate at least 30-60 minutes of active participation in occupational therapy. - Patient able to follow commands: 1-step Yes, Multi-step Yes, Inconsistencies Yes (mild difficulty with multiple step instructions) Challenges to Home Transition:- Requires physical assistance for BADLS - Requires physical assistance for IADLS - Limited caregiver availability - Decreased safety awareness/judgement - Increased risk of falls - Environmental barriers Equipment Recommendations:RW, TTB PLAN OF CARE: At least 2x/week Precautions: Weight bearing status: WBAT GEO LE General: PPE Utilized: Gloves and Surgical mask, Fall and Posterior hip precautions Bracing: Hip abduction brace Current Occupational Performance and/or Treatment: Feeding: SBA/Setup Grooming: SBA/Setup while seated UB Dressing: Minimal assist LB Dressing: Dependent Toilet Transfer: Min assist x 2 with RW and step by step instruction (simulated bed>recliner. OTordered BS) Toileting Hygiene: Dependent Functional Mobility: supine to sit-mod assist x 2, scooting forward in bed-max assist, sit to stand to RW-min assist x 2, transfer to bed side recliner-min assist with step by step instruction and assistance to move RW Patient/caregiver educated on: Adaptive equipment , ADL training, Fall prevention, General strengthening, Role of OT, Safety awareness, Movement restrictions and Hip precautions Patient left sitting upright in bedside chair with call melendez in reach. Visitor present. Please, see full evaluation below for more detail. OT EVALUATION: 84 year old female Admit date: 03/12/2020 Date of onset: 03/12/2020 Admit Diagnosis: Closed Displaced Fracture of Left Femoral Neck OT Diagnosis: Impaired BADL independence, Impaired IADL independence, Weakness, Activity intolerance, Decreased endurance and Impaired self-care mobility PMH: Past Medical History: Diagnosis Date Hyperlipidemia Hypertension Left hip pain 02/11/2016 PSH: Past Surgical History: Procedure Laterality Date EYE SURGERY HYSTERECTOMY PAIN: Before assessment: 0/10 After assessment: 0/10 Location: NA Pain Management: Patient denies need for pain meds OCCUPATIONAL ROLES/HOME ENVIRONMENT: Home environment: lives with spouse in a H with 1 step to enter and a sunken den. Bathroom access: Yes Bathroom setup: Combo Occupation(s): Retired Function prior to admission: Community ambulation and Independent with IADLs Equipment prior to admission: shower chair, wc PERFORMANCE SKILLS/FACTORS: UE Muscle Tone: bilateral WNL UE ROM: bilateral AROM WFL UE Strength: GEO UE WFL Hand dominance: bilateral Dexterity/Coordination: bilateral Fine motor skills Intact and bilateral Gross motor skills Intact Endurance - Sitting: Good Standing: Poor+ Sitting Balance - Static: Good Dynamic: NT Standing: Balance - Static Fair - Dynamic: Fair - Dizziness: Yes Skin Integrity: surgical incision Sensation: bilateral Intact to light touch Oral Motor: WFL Communication: Able to verbalize needs Yes Other: N/A Vision: WFL Yes Other: reading glasses Hearing: good; no issues reported COGNITION: Orientation: person, place, date/time and situation Follows Commands: 1-step Yes Multi-step Yes Inconsistencies Yes (has difficulty with multistep instruction) Safety Awareness/Judgment: Fair and Requires frequent cueing PROBLEM LIST: Decreased independence with ADL, Impaired postural control, Decreased functional ROM, Decreased strength/endurance for functional activity and Impaired safety awareness REHAB POTENTIAL/PROGNOSIS: good PATIENT/FAMILY GOALS: to return home. TREATMENT/INTERVENTION PLAN: Functional motor treatment, Patient/Caregivier Education, Equipment recommendations, Daily living activities, Therapeutic exercises and Neuromuscular Re-Education GOAL(S): By discharge, patient will increase independence in daily living skills as follows: 1 Patient will perform 3 in 1 BSC transfer with CGA. 2 Patient will perform LB dressing with minimal assistance with AE. 3 Patient will complete grooming tasks with independence and CGA while standing at the sink. 4 Patient will complete toileting hygiene, including clothing management, with minimal assistance. 5 Patient will increase endurance for functional activity as evidenced by ability to sustain 20 minutes of active participation. 6 Patient/caregiver will verbalize/demonstrate understanding/proficiency in the following home programs: Adaptive equipment , ADL training, Compensatory techniques/adaptive strategies, Fall prevention,General strengthening, Safety awareness and Hip precautions PATIENT-FAMILY TEACHING Patient provided with preferred teaching of verbal information on ADL training, Role of OT and Hip precautions. Shows readiness to learn. Verbal instruction teaching provided. Individual is able to read and needs reinforcement of teaching. JAREN Lim Total Timed Treatment Codes: 20 Min Total Treatment Time: 38 Min Patient Complexity Level High - An occupational therapy evaluation of high complexity was completed using the above tests and measures. The following information was obtained: An occupational profile and medical and therapy history, including review of medical and/or therapy records and extensive jose d tional review of physical, cognitive, or psychosocial history related to current functional performance, Various standardized and non-standardized assessments were used to identify at least 5 or more performance deficits related to physical, cognitive, or psychosocial skills that result in activity limitations and/or participation restrictions and Clinical decision-making is of high analytic complexity, which includes an analysis of the patient profile, analysis of data from comprehensive assessment(s), and consideration of multiple treatment options. Patient present with comorbidities that affect occupational performance. Significant modification of tasks or assistance (e.g., physical or verbal) with assessment(s) is necessary to enable patient to complete evaluation component. ESSOGRAPH OPERATOR Senait Ruby, PT - 03/14/2020 11:45 AM CSTAssociated Order(s): CONSULT ADULT PHYSICAL THERAPY Patient agreeable to working with physical therapy. Patient met Semi reclined in bed. PHYSICAL THERAPY EVALUATION Consult received, chart reviewed and evaluation complete this date. Patient is referred to PT for evaluation and treatment. Patient is a 84 year old female who presents to hospital for Closed DisplacedFracture of Left Femoral Neck. Pt is s/p L hip madi-arthroplasty. Pt seen in conjunction with Bee Lowery OT due to medical complexity and activity tolerance. Discharge Recommendations: Therapy Needs and Potential: Patient would benefit from continued physical therapy services to address: decline in bed mobility decline in transfers decline in gait and/or balance decline in stair/step negotiation decreased strength decreased endurance Patient demonstrates good potential to improve and meet therapy goals with further physical therapy services. Patient appears motivated to improve their functional mobility and return to their previous levelof function. Patient demonstrates ability to tolerate atleast 30-60 minutes of physical therapy with active participation. Challenges to Home Transition: increased risk of falls decreased safety awareness environmental barriers Equipment recommendations: wheelchair at this time. Anticipate pt will be able to mobilize with RW as she improves Current Functional Status and/or Treatment: Functional mobility training, Transfer training, Gait training, Patient/Family/Caregiver education and Therapeutic exercise. Pt found semi-reclined in bed. Pt educated on role of PT and purpose of evaluation to assess OOB mobility. PT spoke with pt about the importance of mobilizing while within the hospital to prevent decline in functional status. Pt educated on hip precautions and current weight bearing status. Discussed plan to progress pt OOB at least to bedside chair depending on her activity tolerance. Educated pt to perform ankle pumps and glute squeezes while in chair and attempt SLR while in bed reclined. Hip precautions written on pt's board aspt with difficulty remembering. Bed Mobility: Supine to sit: Maximal assist, x2. Pt cued to bring bilateral LE towards EOB. Pt provided with instruction on moving shoulders and educated on purpose to maintain hip precautions. Pt able to bring LE towards EOB, however ultimately needed max A x2 for trunk and LE to get pt EOB. Scooting to edge of bed: Maximal assist. Pt cued to assist with lateral weight shifting, however unable to perform. Transfers: Sit to stand: Minimal assist, x2 using Rolling Walker Stand to sit: Minimal assist using Rolling Walker PT cued pt for correct UE and LE placement during transfers to improve comfort and able to perform. Pt provided with cueing for rocking to build momentum. Pt required min A for initiation and stability during task. Ambulation: Assisted patient with ambulation as follows: 2 feet using Rolling Walker and Minimal assist Patient presenting with Step-to gait pattern. Pt required significant verbal and tactile cueing for appropriate progression of LE. Pt noted to have difficulty with performing steps as instructed as well as maneuvering RW. Pt required min A for balance and RW management. Therapeutic exercise: patient educated in Energy conservation, Fall prevention, General strengthening, Safety awareness, WB restrictions and Hip precautions. After session, patient Up in chair. Call button provided. RN informed. PLAN OF CARE: At least 3 times per week, once or twice a day (while in hospital) per patient's tolerance and medical needs. See below for complete details. Admit Date: 03/12/2020 Hospital Diagnosis:Closed Displaced Fracture of Left Femoral Neck PT Diagnosis: Difficulty walking, Weakness, Malaise/fatigue, Pain and Abnormality of gait and balance Weight Bearing Precaution: WBAT, Left, LE General Precautions: PPE used:Gloves and Surgical mask, General, Fall, Henning Catheter Bracing/Cast present or required:Hip abduction wedge while in bed PMH: Past Medical History: Diagnosis Date Hyperlipidemia Hypertension Left hip pain 02/11/2016 PSH: Past Surgical History: Procedure Laterality Date EYE SURGERY HYSTERECTOMY Prior Living Situation: lives with their spouse and house, pt has a single step to enter and also a single step to get into her living room DME: shower chair, Wheel Chair Prior level of Mobility: community ambulation Subjective: Pt reports that when she fell, she was going to the MD to have an MRI performed due to Rhip pain Patient/Family Goals: return to [facility], pt would like to go to an inpatient facility Patient/Family verbalizes understanding of condition: Yes PAIN: -Pain Description: dull -Pain Location: L hip -Pain rating before treatment: does not rate, After treatment: does not rate -Pain Management: Repositioning Provided COMMUNICATION Primary Language: Vietnamese Able to Verbalize needs: Yes Vision:glasses Hearing:good; no issues reported ORIENTATION/COGNITION: Oriented to: person, place, date/time and situation Awake: Yes Alert: Yes Dizzy: Yes while sitting EOB that minimally improved Follows Commands: Yes 1-Step Yes Multi-Step Yes Inconsistent: Yes NEUROLOGICAL Light Touch: within functional limits bilateral LE Heel to phillips: NT Tone: NT BALANCE: Sitting: Static: Fair+ Dynamic: Fair Standing: Static: Fair Dynamic: Fair RANGE OF MOTION: within functional limits bilateral LE STRENGTH: 4-/5 (G-), bilateral LE except 2-/5 for L hip flexion ENDURANCE: Fair, Room air SKIN INTEGRITY: not intact, secondary to surgery PROBLEM LIST: Decline in bed mobility, Decline in gait, Decline in transfers, Difficulty with stairs, Decreased strength, Decreased endurance, Decreased balance, Weight bearing restrictions, Safety awareness deficits, Pain, Decreased Coordination and Decreased Motor Planning ASSESSMENT: Patient is a 84 year old female seen secondary to the above listed diagnosis. Patient would benefit from continued PT to address the above listed deficits to maximize independence and safety with functional mobility. Rehabilitation Potential: good Goals: The following goals are to maximize independence and safety with functional mobility to eventually return to prior living situation and prior functional status. Upon discharge, patient and/or family will demonstrate the followin. Supine to sit: Modified independent Sit to supine: Modified independent 2. Sit to stand: Modified independent using Rolling Walker Stand to sit: Modified independent using Rolling Walker 3. Modified independent with ambulation, Feet: 250 using least assistive device. 3. Modified independent up/down 1 stairs using no rails. Treatment Plan: Gait training, Gait training on stairs, Therapeutic exercise, Transfer training, Balance training, Bed mobility training, Equipment needs assessment, Safety education, patient/caregivereducation, Wheelchair mobility training, Neuromuscular Re-Education and Functional Motor Training PATIENT EDUCATION: Patient provided with preferred teaching of verbal information on role of PT, plan of care, and information provided in treatment section. Barriers to learning include cognitive limitations. Verbal instruction teaching provided. Individual is able to read and needs reinforcement of t eaching. Total Time Tx Codes in Minutes: 25 min Total Treatment Time in Minutes: 35 min Senait Ruby PT, DPT ESSOGRAPH OPERATOR Christopher Hooker MD - 03/12/2020 8:40 PM CSTAssociated Order(s): CONSULT ORTHOPAEDIC SURGERY ORTHOPAEDIC SURGERY CONSULT DATE OF SERVICE: 03/12/2020 IDENTIFYING DATA Patient name: Stephanie Chairez : 1935 Primary care physician: Maxime Gamez REASON FOR CONSULT: Left hip fracture HISTORY OF PRESENT ILLNESS Stephanie Chairez is a 84 year old female presenting with complaints of left hip pain after fallfrom standing height. Patient reports she was at [facility] getting an MRI and sustained a ground level fall. The patient experienced immediate hip pain and was unable to bear weight. Patient was brought to the ER by EMS. Patient denies hitting head or LOC. Patient denies pain in the knee, or numbness/tingling in the lower extremity. Patient denies hip pain prior to fall. SHe ambulates without assistance around the house. Patient last ate at this morning. Patient endorses taking aspirin. denies history of previous fracture, cancer, or treatment for osteoporosis.. Patient denies history of bleeding disorder or blood clots. PAST MEDICAL HISTORY Past Medical History: Diagnosis Date Hyperlipidemia Hypertension Left hip pain 02/11/2016 CURRENT HEALTH STATUS Current Facility-Administered Medications Medication Dose Route Frequency Last Rate Last Admin [START ON 03/13/2020] aspirin EC tablet 81 mg 81 mg Oral DAILY atorvastatin (LIPITOR) tablet 20 mg 20 mg Oral QHS carvediloL (COREG) tablet 12.5 mg 12.5 mg Oral TID MEALS cloNIDine (CATAPRES) tablet 0.1 mg 0.1 mg Oral TID [START ON 03/13/2020] enoxaparin (LOVENOX) injection 40 mg 40 mg Subcutaneous DAILY [START ON 03/13/2020] furosemide (LASIX) tablet 40 mg 40 mg Oral DAILY hydrALAZINE (APRESOLINE) tablet 25 mg 25 mg Oral BID mirtazapine (REMERON) tablet 15 mg 15 mg Oral QHS traMADoL (ULTRAM) tablet 50 mg 50 mg Oral TID [START ON 03/13/2020] valsartan (DIOVAN) tablet 160 mg 160 mg Oral DAILY Current Outpatient Medications Medication Sig Dispense Refill mirtazapine 15 mg tablet Take 1 tablet by mouth at bedtime. 30 tablet 1 hydrALAZINE 25 mg tablet Take 1 tablet [...] tablet by mouth daily. 90 tablet 1 aspirin (ASPIRIN LOW DOSE) 81 mg EC tablet Take 81 mg by mouth daily. ALLERGIES Allergies Allergen Reactions Amlodipine Unknown - See comments SOCIAL HISTORY Social History Socioeconomic History Marital status: Spouse [...] file Gets together: Not on file Attends holiness service: Not on file Active member of [...] Not on file Social History Narrative Retired- [employer] FAMILY HISTORY Family History Problem Relation Age of Onset Heart Mother Cancer Father REVIEW OF SYSTEMS (-)=Negative,(+)=Positive Constitutional: (-) fever, (-) chills, (-) weight change Eyes: (-) itching, (-) redness, (-) discharge and (-) change in vision Ears: (-) ear pain and (-) discharge Nose/Sinuses: (-) congestion and (-) post nasal drip Mouth/Throat: (-) dysphagia, (-) hoarseness and (-) sore throat Cardiovascular: (-) chest pain, (-) palpitations Respiratory: (-) cough, (-) shortness of breath Gastrointestinal: (-) abdominal pain, (-) nausea, (-) vomiting, (-) diarrhea, (- ) constipation Genitourinary: (-) dysuria, (-) hematuria Endocrine: (-) heat intolerance, (-) cold intolerance Musculoskeletal: See HPI Neurological: (-) numbness, (-) tingling PHYSICAL EXAMINATION Vitals: 03/12/20 1837 03/12/20 1904 BP: (!) 227/72 (!) 227/72 Pulse: 66 66 Resp: 20 20 Temp: 37.1 C (98.7 F) 37.1 C (98.7 F) SpO2: 96% Weight: 77.1 kg (170 lb) Gen: Alert, NAD Resp:breathing non-labored, symmetric chest rise CV: regular rate, extremities well perfused MSK: LLE- Leg shortened and externally rotated. No ecchymosis. +hip pain with log roll Distal femur, proximal tibia, and patella nonTTP. Fires GSC, FHL, EHL, TA. SILT S/S/DP/SP/T nerve distributions. BCR. Foot WWP. Palpable dp pulse X-ray results: 2V L hip and AP pelvis demonstrates a L displaced femoral neck fracture ASSESSMENT Patient Active Problem List Diagnosis Essential hypertension Hyperlipidemia Anemia B twelve deficiency Malaise Fatigue Upper respiratory infection Left hip pain Obesity (BMI 30-39.9) Weakness Right knee pain Dermatitis Chest pain Hypertensive urgency Closed displaced fracture of left femoral neck Stephanie Chairez is a 84 year old female with left femoral neck fracture. PLAN - Admit to geriatrics/internal medicine - NPO for surgery- Left hip madi arthroplasty - Please hold anticoagulation/antiplatelet agents - NWB LLE - Patient will need f/u with bone health clinic (Dr. Calabrese) after discharge - Consent obtained from patient. - Risks and benefits of operative vs. Non operative treatment was discussed with the patient. All questions answered to patient/gardian satisfaction. Risks of surgery include but are not limited to bleeding,infection, damage to nerve, muscle, artery, tendon, foot drop, leg length discrepancy, pain, stiffness, scarring, functional or cosmetic deformity, need for furthery surgery, persistent pain despite appropriate surgical intervention and recurrence of symptoms in the future. No guarantees were expressed or implied other than due diligence. ESSOGRAPH OPERATOR Associated attestation - Latasha Bruno MD - 03/13/2020 9:24 AM ADDRESSOGRAPH OPERATOR 03/13/2020 Patient seen and examined and agree with the note. Plan hemiarthroplasty today documented in this encounter ED Notes Nathan Rosado RN - 03/12/2020 6:36 PM CSTDannymarylou Chairez is a 84 year old female presenting to ED via [facility] where she had mechanical fall. Per ems report patient had MRi done of left hip/ femur with possible fracture noted. PMS intact below injury site. ESSOGRAPH OPERATOR Devang Bahena FNP - 03/12/2020 6:34 PM CST EMERGENCY DEPARTMENT ENCOUNTER [facility] Patient Name: Stephanie Chairez Date of : 1935 84 year old Exam Room:[address] [place] [address] Primary Care Physician: Maxime Gamez Pre- Hospital Patient Escorted by: Self [9] Mode of Arrival: EMS - [facility] ([facility]) [43] EMS Treatment Prior to ED Arrival: n/a [employer] treatment: Saline lock;Medication (comment) [employer] treatment comments: 75 mcg Fentanyl 4 mg Zofran IV [employer] Chief Complaint Chief Complaint Patient presents with Hip Pain HPI Patient is an 84 year old female with a hx of HLD, HTN presents to ED for evaluation and treatment due to left hp fracture. Patient was at an MRI clinic obtaining an MRI of the right hip when she fell and fractured her left hip. Patient in severe pain,9/10 on pain severity scale at tthis time. She wasgiven Fentanyl 75 mcg by EMS while enroute. 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 Entrapped after fall: no Hip location: L hip Pain details: Radiates to: Does not radiate Severity: Severe Onset quality: Sudden Timing: Constant Progression: Improving Chronicity: New Dislocation: no Foreign body present: No foreign bodies Tetanus status: Unknown Prior injury to area: Unable to specify Relieved by: fentanyl. Worsened by: Bearing weight Ineffective treatments: narcotics. Associated symptoms: decreased ROM Associated symptoms: no fever Risk factors: obesity Past Medical History / Immunizations Past Medical History: Diagnosis Date Hyperlipidemia Hypertension Left hip pain 02/11/2016 Tetanus received in last 5 years: Unknown Past Surgical History Past Surgical History: Procedure Laterality Date EYE SURGERY HYSTERECTOMY Allergies Allergies Allergen Reactions Amlodipine Unknown - See comments Social History Tobacco Use Never smoked or used smokeless tobacco. Alcohol Use Yes; 4.0 standard drinks of alcohol per week; 2 Glasses of wine, 2 Cans of beer. Drug Use No. Review of Systems Review of Systems Constitutional: Negative for activity change, appetite change, chills and fever. HENT: Negative. Eyes: Negative. Respiratory: Negative. Gastrointestinal: Negative for abdominal distention, abdominal pain, anal bleeding, blood in stool, constipation, diarrhea, nausea, rectal pain and vomiting. Genitourinary: Negative for bladder incontinence, dysuria, frequency, hematuria, flank pain, decreased urine volume and difficulty urinating. Musculoskeletal: Positive for gait problem and joint swelling. Neurological: Negative for weakness. Psychiatric/Behavioral: Negative. Endocrine: Endocrine negative Physical Exam BP (!) 227/72 | Pulse 66 | Temp 37.1 C (98.7 F) | Resp 20 | Wt 77.1 kg (170 lb) | SpO2 96%| BMI 30.11 kg/m Physical Exam Vitals signs and nursing note reviewed. Constitutional: Appearance: She is well-developed. Eyes: Pupils: Pupils are equal, round, and reactive to light. Neck: Musculoskeletal: Normal range of motion. Cardiovascular: Rate and Rhythm: Normal rate. Heart sounds: Normal heart sounds. Pulmonary: Effort: Pulmonary effort is normal. No respiratory distress. Breath sounds: No wheezing. Abdominal: General: There is no distension. Palpations: There is no mass. Tenderness: There is no abdominal tenderness. There is no guarding or rebound. Musculoskeletal: Left hip: She exhibits decreased range of motion, decreased strength, tenderness, bony tendernessand deformity. Skin: General: Skin is warm and dry. Neurological: Mental Status: She is alert and oriented to person, place, and time. Labs No results found for this or any previous visit (from the past 24 hour(s)). Imaging No results found for this visit on 03/12/20. Orders and Treatments Orders Placed This Encounter Procedures XR HIPS 2 VW LEFT XR FEMUR 2 VW LEFT CBC WITH DIFF COMP. METABOLIC PANEL (94273) Type and Screen - ONCE Routine PROTHROMBIN TIME / INR ACTIVATED PARTIAL THRMPLAS LEONARDO COVID-19 (ID NOW RAPID TESTING) CONSULT INTERNAL MEDICINE CONSULT ORTHOPAEDIC SURGERY Orders Placed This Encounter Medications morpHINE injection 4 mg Procedures Procedures Notes ED Course as of Mar 12 1943SunMar 12, [id number] Informed Dr Martinez patient's presenting symptoms and plan of care. She accepted patient for medical management [FI] 1920 Discussed with Orthopedic surgeon, Dr Acevedo. He recommended admission for possible surgery tomorrow. [FI] ED Course User Index [FI] IbikunleHomerocaitlyn LanaRICK Diagnosis ICD-10-CM ICD-9-CM 1. Fall, initial encounter W19.XXXA E888.9 2. Closed fracture of left hip, initial encounter S72.002A 820.8 Disposition & Follow Up ED Disposition None Patient's Medications START taking these medications No medications on file CONTINUE taking these medications which have NOT CHANGED ASPIRIN (ASPIRIN LOW DOSE) 81 MG EC TABLET Take 81 mg by mouth daily. CARVEDILOL 12.5 MG TABLET Take 1 tablet by mouth 3 (three) times daily with meals. CLONIDINE 0.1 MG TABLET TAKE 1 TABLET BY MOUTH THREE TIMES A DAY FUROSEMIDE 40 MG TABLET Take 1 tablet by mouth daily. HYDRALAZINE 25 MG TABLET Take 1 tablet by mouth 2 (two) times daily. LOVASTATIN 20 MG TABLET TAKE 1 TABLET BY MOUTH ONCE A DAY - MUST BE SEEN FOR FURTHER REFILLS METHYLPREDNISOLONE (MEDROL, GILDA,) 4 MG TABLETS Take 21 tablets by mouth SEE- INSTRUCTIONS. followpackage directions MIRTAZAPINE 15 MG TABLET Take 1 tablet by mouth at bedtime. OXYCODONE-ACETAMINOPHEN 7.5-325 MG PER TABLET Take 1 tablet by mouth every 4 (four) hours as needed for Pain for up to 7 days. Indications: acute pain SODIUM CHLORIDE 1 GRAM TABLET Take 1 g by mouth 2 (two) times daily. VALSARTAN 160 MG TABLET Take 1 tablet by mouth daily. START taking Modified Medications as Prescribed No medications on file STOP taking these medications No medications on file MDM Coding ESSOGRAPH OPERATOR Associated attestation - Ced Hodgson MD - 03/12/2020 8:15 PM CSTI personally examined the patient on 03/12/2020 and agree with Socogame's VENTURA note with the followingaddition(s): Appreciate Ortho. Evaluation and care/recommendatios . I actively participated in the decision-making process. Please see the Midlevel Provider's note for additional details.documented in this encounter Miscellaneous Notes Care Plan - Ayaan Sawant RN - 03/18/2020 5:04 PM ADDRESSOGRAPH OPERATOR Problem: Pain Goal: Control of pain at or below patient's documented comfort goal Outcome: Adequate for discharge Goal: Reduction in pain sensation Outcome: Adequate for discharge Problem: Anxiety Goal: Alleviation of anxiety Outcome: Adequate for discharge Problem: Bleeding, Risk of Goal: Absence of impaired coagulation signs and symptoms Outcome: Adequate for discharge Goal: Absence of active bleeding Outcome: Adequate for discharge are Plan - Tavia Kim RN - 03/17/2020 2:17 PM CST are Plan - Mosies Dupree RN - 03/17/2020 12:16 AM CSTBMP Q8H, pain control are Plan - Leidy Brown RN - 03/16/2020 4:28 PM ADDRESSOGRAPH OPERATOR Problem: Pain Goal: Control of pain at or below patient's documented comfort goal Outcome: Progressing as expected Goal: Reduction in pain sensation Outcome: Progressing as expected Problem: Anxiety Goal: Alleviation of anxiety Outcome: Progressing as expected are Plan - Heaven Murcia RN - 03/16/2020 4:03 AM CST are Plan - Loretta Thomason RN - 03/15/2020 6:18 AM ADDRESSOGRAPH OPERATOR are Plan - Jude Olmos RN - 03/14/2020 5:37 PM CSTPatient seen by PT/OT today are Plan - Loretta Thomason RN - 03/14/2020 6:05 AM ADDRESSOGRAPH OPERATOR are Plan - Jude Olmos RN - 03/13/2020 4:26 PM CSTPatient has an adduction pillow in place. D Nurse Note - Hannah Harrington RN - 03/12/2020 10:47 PM ADDRESSOGRAPH OPERATOR Transported to [place] [address] on stretcher via [facility] transportation. Respirations even and unlabored with no distress noted at this time. D Nurse Note - Hannah Harrington RN - 03/12/2020 10:31 PM CSTFamily at bedside. D Nurse Note - Hannah Harrington RN - 03/12/2020 8:15 PM CSTSocial work in room with patient at this time. ESSOGRAPH OPERATOR ED Nurse Note - Hannah Harrington RN - 03/12/2020 7:22 PM CSTPatient [facility] transportation. Respirations even and unlabored, NAD noted at this time. D Nurse Note - Hannah Harrington RN - 03/12/2020 7:13 PM CSTPlaced purewick on patient after she requested to use bathroom. D Nurse Note - Hannah Harrington RN - 03/12/2020 7:13 PM CSTNurse Report Report from [facility]. Chief complaint, assessment findings and orders reviewed. Plan of care discussed at bedside with patient and both nurses. Patient/family members verbalized understanding. Hannah Harrington RN D Nurse Note - Seng Miramontes RN - 03/12/2020 7:08 PM CSTStephanie Len Moff is a 84 year old female who presents to ER 113 via EMS stretcher AOx4 for cc of left hip pain s-p mechanical fall at the MRI clinic [employer]. Pt was scheduled for an MRI of the right hip, when she had a mechanical fall. MRI revealed fracture to left femoral head. Pt has shortened left leg, no rotation, swelling, bruising or bleeding. Skin warm to touch, pulses strong bilaterally and sensation intact. Pt rates pain 8/10 following 75 mcg fentanyl IV [employer]. 2nd PIV placed, blood labs drawn labelled at bedside, patient placed on monitor. Bedside report given to Hannah PHAM. documented in this encounter Plan of Treatment Date Type Specialty Care Team Description 04/07/2020 Office Visit Orthopedic Surgery Richard Bruno MD [address] [facility] [address] [place], [place] [address] Name Type Priority Associated Diagnoses Date/Ti me EKG-12 LEAD ONCE HEART STATION STAT Fall, initial encounter 03/12/2020 7:37 PM ADDRESSOGRAPH OPERATOR ABG+COOX+NA+K+GLU LAB Routine 03/13/2020 12:21 PM +CA2+ ADDRESSOGRAPH OPERATOR Name Type Priority Associated Order Schedule Diagnoses EKG-12 LEAD ONCE HEART STATION STAT Fall, initial ONCE for 1 encounter Occurrences sta rting 03/12/2020 unti l 03/12/2020 Basic Metabolic Panel LAB Routine EVERY MORNING AT 0400 (NA, K, CL, CO2, for 1 Occur rences GLUCOSE, BUN, starting 03/13 CREATININE, CA) until 2020 ABG+COOX+NA+K+GLU+CA2+ LAB Routine ONCE for 1 Occurrences sta rting 03/13/2020 unti l 03/13/2020 BASIC METABOLIC PANEL LAB Routine EVERY MORNING AT 0400 (NA, K, CL, CO2, for 3 Days starting GLUCOSE, BUN, 03/18/2020 unt il CREATININE, CA) 03/20/2020, 1 completed Transfusion Reaction LAB Routine FOR FOL LOW-UP TESTING Investigation until disconti nued starting 2020 Urinalysis (Spun) LAB Routine FOR FOLLOW -UP TESTING until discontin ued starting 2020 Health Maintenance Due Date Last Done Comments DTaP,Tdap,and Td Vaccines (1 - 1954 Tdap) Zoster Recombinant Vaccine 1985 (SHINGRIX) (1 of 2) Osteoporosis Screening 2000 Medicare Wellness Visit 12/14/2017 12/14/2016 Depression Screening 03/13/2021 03/13/2020 PNEUMOCOCCAL VACCINES 65+ Completed 12/14/2018, 12/10/2018 , 12/14/2016, Additional history exists INFLUENZA VACCINE Completed 11/04/2019, 12/10/2018, 12/11/2017, Additional history exists documented as of this encounter Implants Implanted Type Area Manager Rn Case Device Shelf Model / Identifier Expiration Serial / Lot Date Julio Unitrax Endoprothesis Head Component 46mm HIP Left: Hi p [place] 09/19/2023 [id number] / Implanted: Qty: 1 on 03/13/2020 by Latasha Meneses MD at [facility] / [id number] Head, Julio Unitrax V40 Taper Sleeve +0mm #[id number] - S Head Left: Hip Julio 10/29/2024 [id number] / Implanted: Qty: 1 on 03/13/2020 by Latasha Meneses MD at [facility] / [id number] Stem, Julio Size 5 Accolade Ii 132deg #[id number] - S Stem Lef t: Hip [place] 09/15/2024 [id number] / Implanted: Qty: 1 on 03/13/2020 by Latasha Meneses MD at [facility] / [id number] documented as of this encounter Procedures Procedure Name Priority Date/Time Associated Comments Diagnosis CBC WITHOUT DIFF STAT 03/18/2020 12:39 Results for PM ADDRESSOGRAPH OPERATOR this procedure are in the results section. CBC WITH DIFF Routine 03/18/2020 6:44 Results fo r AM ADDRESSOGRAPH OPERATOR this procedure are in the results section. BASIC METABOLIC PANEL Routine 03/18/2020 6:44 Re sults for (NA, K, CL, CO2, AM ADDRESSOGRAPH OPERATOR this proced ure GLUCOSE, BUN, are in the CREATININE, CA) results section. PREPARE PACKED RBC Routine 03/17/2020 3:37 Resul ts for PM ADDRESSOGRAPH OPERATOR this procedure are in the results section. HB ABO GROUPING IMTIAZ 03/17/2020 1:47 Results for PM ADDRESSOGRAPH OPERATOR this procedure are in the results section. BASIC METABOLIC PANEL Routine 03/17/2020 9:54 Re sults for (NA, K, CL, CO2, AM ADDRESSOGRAPH OPERATOR this proced ure GLUCOSE, BUN, are in the CREATININE, CA) results section. CBC WITH DIFF Routine 03/17/2020 12:32 Results fo r AM ADDRESSOGRAPH OPERATOR this procedure are in the results section. BASIC METABOLIC PANEL Routine 03/17/2020 12:32 Re sults for (NA, K, CL, CO2, AM ADDRESSOGRAPH OPERATOR this proced ure GLUCOSE, BUN, are in the CREATININE, CA) results section. SODIUM, URINE RANDOM Routine 03/16/2020 7:47 Res ults for PM ADDRESSOGRAPH OPERATOR this procedure are in the results section. CREATININE, URINE Routine 03/16/2020 7:47 Result s for RANDOM PM ADDRESSOGRAPH OPERATOR this procedure are in the results section. OSMOLALITY URINE Routine 03/16/2020 7:47 Results for PM ADDRESSOGRAPH OPERATOR this procedure are in the results section. BASIC METABOLIC PANEL Routine 03/16/2020 3:26 Re sults for (NA, K, CL, CO2, PM ADDRESSOGRAPH OPERATOR this proced ure GLUCOSE, BUN, are in the CREATININE, CA) results section. OSMOLALITY, SERUM OR Add-on 03/16/2020 3:26 Res ults for PLASMA PM ADDRESSOGRAPH OPERATOR this procedure are in the results section. CBC WITHOUT DIFF Routine 03/16/2020 1:46 Results for PM ADDRESSOGRAPH OPERATOR this procedure are in the results section. CBC WITH DIFF Routine 03/16/2020 5:13 Results fo r AM ADDRESSOGRAPH OPERATOR this procedure are in the results section. BASIC METABOLIC PANEL Routine 03/16/2020 5:13 Re sults for (NA, K, CL, CO2, AM ADDRESSOGRAPH OPERATOR this proced ure GLUCOSE, BUN, are in the CREATININE, CA) results section. CBC WITH DIFF Routine 03/15/2020 6:18 Results fo r AM ADDRESSOGRAPH OPERATOR this procedure are in the results section. TROPONIN I Routine 03/14/2020 6:05 Results for AM ADDRESSOGRAPH OPERATOR this procedure are in the results section. TROPONIN I Routine 03/13/2020 10:57 Results for PM ADDRESSOGRAPH OPERATOR this procedure are in the results section. HB ECG ROUTINE & RHYTHM Routine 03/13/2020 10:33 Angina pector is STRIP PM ADDRESSOGRAPH OPERATOR with documented spasm CBC WITHOUT DIFF STAT 03/13/2020 5:48 Results for PM ADDRESSOGRAPH OPERATOR this procedure are in the results section. URINALYSIS Routine 03/13/2020 2:39 Results for PM ADDRESSOGRAPH OPERATOR this procedure are in the results section. XR PELVIS <3 VW Routine 03/13/2020 1:03 Closed displaced Resu lts for PM ADDRESSOGRAPH OPERATOR fracture of left this proced ure femoral neck are in the results section. SURGICAL PATHOLOGY EXAM STAT 03/13/2020 1:03 Results for PM ADDRESSOGRAPH OPERATOR this procedure are in the results section. HIP HEMIARTHROPLASTY Level 4 (within 03/13/2020 10:54 Fall, initial 0-5 days) AM ADDRESSOGRAPH OPERATOR encounter Closed fracture of left hip, initial encounter XR CHEST 1 VW STAT 03/13/2020 5:39 Closed fracture Results for AM ADDRESSOGRAPH OPERATOR of left hip, this procedure initial are in the encounter results section. BLOOD CULTURE SCREEN Routine 03/13/2020 5:37 Res ults for AM ADDRESSOGRAPH OPERATOR this procedure are in the results section. BLOOD CULTURE SCREEN Routine 03/13/2020 5:37 Res ults for AM ADDRESSOGRAPH OPERATOR this procedure are in the results section. PROTHROMBIN TIME / INR Routine 03/13/2020 5:31 R esults for AM ADDRESSOGRAPH OPERATOR this procedure are in the results section. CBC WITH DIFF Routine 03/13/2020 5:31 Results fo r AM ADDRESSOGRAPH OPERATOR this procedure are in the results section. ABORH CONFIRMATION Routine 03/13/2020 12:10 Resul ts for AM ADDRESSOGRAPH OPERATOR this procedure are in the results section. HB ABO GROUPING Routine 03/12/2020 8:52 Fall, initial Results for PM ADDRESSOGRAPH OPERATOR encounter this procedure are in the results section. LAB ONLY COVID Routine 03/12/2020 8:49 Fall, initial Results for INTERPRETATION PM ADDRESSOGRAPH OPERATOR encounter this procedur e are in the results section. COVID-19 (ID NOW RAPID STAT 03/12/2020 8:49 Fall, initial Results for TESTING) PM ADDRESSOGRAPH OPERATOR encounter this procedure are in the results section. ACTIVATED PARTIAL STAT 03/12/2020 8:49 Fall, initial Resul ts for THRMPLAS LEONARDO PM ADDRESSOGRAPH OPERATOR encounter this procedure are in the results section. PROTHROMBIN TIME / INR STAT 03/12/2020 8:49 Fall, initial Results for PM ADDRESSOGRAPH OPERATOR encounter this procedure are in the results section. CBC WITH DIFF STAT 03/12/2020 8:49 Fall, initial Results f or PM ADDRESSOGRAPH OPERATOR encounter this procedure are in the results section. COMP. METABOLIC PANEL STAT 03/12/2020 8:49 Fall, initial R esults for ([id number]) PM ADDRESSOGRAPH OPERATOR encounter this procedure are in the results section. XR HIPS 2 VW LEFT STAT 03/12/2020 7:37 Fall, initial Resul ts for PM ADDRESSOGRAPH OPERATOR encounter this procedure are in the results section. XR FEMUR 2 VW LEFT STAT 03/12/2020 7:37 Fall, initial Resu lts for PM ADDRESSOGRAPH OPERATOR encounter this procedure are in the results section. HOSPITAL ADMISSION Routine 03/12/2020 12:01 AM ADDRESSOGRAPH OPERATOR documented in this encounter Results CBC WITHOUT DIFF (03/18/2020 12:39 PM ADDRESSOGRAPH OPERATOR) Pathologist Sig nature WBC 6.78 4.30 - 11.10 [facility] 10*3/L SERVICES RBC 2.93 (L) 3.93 - 5.25 [facility] 10*6/L SERVICES HGB 9.3 (L) 11.6 - 15.0 g/dL [facility] HCT 26.5 (L) 35.7 - 45.2 % [facility] MCH 31.7 25.9 - 32.8 pg [facility] MCV 90.4 80.6 - 95.5 fL [facility] MCHC 35.1 31.6 - 35.1 g/dL [facility] PLT 137 (L) 166 - 358 10*3/L [facility] MPV 10.5 9.5 - 12.9 fL [facility] RDW-CV 14.1 12.0 - 15.5 % [facility] RDW-SD 46.5 39.0 - 49.9 fL [facility] NRBC x10^3 <0.01 10*3/L [facility] NRBC/100 WBC 0.0 0.0 - 10.0 /100 [facility] WBCs SERVICES IPF % [facility] Specimen Blood - LINE, VENOUS Performing Organization Address City/State/Zipcode Phone Number [facility] CLIA: [id number] [place] [address] [place] [address] CBC WITH DIFF (03/18/2020 6:44 AM ADDRESSOGRAPH OPERATOR) Pathologist Sig nature WBC 5.87 4.30 - 11.10 [facility] 10*3/L SERVICES RBC 2.56 (L) 3.93 - 5.25 [facility] 10*6/L SERVICES HGB 7.9 (L) 11.6 - 15.0 [facility] g/dL SERVICES HCT 22.7 (L) 35.7 - 45.2 % [facility] SERVICES MCV 88.7 80.6 - 95.5 fL [facility] MCH 30.9 25.9 - 32.8 pg [facility] MCHC 34.8 31.6 - 35.1 [facility] g/dL SERVICES RDW-SD 46.7 39.0 - 49.9 fL [facility] SERVICES RDW-CV 14.4 12.0 - 15.5 % [facility] SERVICES PLT 117 (L) 166 - 358 [facility] 10*3/L SERVICES MPV 10.3 9.5 - 12.9 fL [facility] SERVICES NRBC/100 WBC 0.0 0.0 - 10.0 /100 [facility] WBCs SERVICES NRBC x10^3 <0.01 10*3/L [facility] SERVICES GRAN MAT (NEUT) % 66.7 % [facility] IMM GRAN % 1.40 % [facility] LYMPH % 20.8 % [facility] MONO % 9.5 % [facility] EOS % 1.4 % [facility] BASO % 0.2 % [facility] SERVICES GRAN MAT x10^3(ANC) 3.92 1.88 - 7.09 [facility] 10*3/uL SERVICES IMM GRAN x10^3 0.08 (H) 0.00 - 0.06 [facility] 10*3/uL SERVICES LYMPH x10^3 1.22 (L) 1.32 - 3.29 [facility] 10*3/uL SERVICES MONO x10^3 0.56 0.33 - 0.92 [facility] 10*3/uL SERVICES EOS x10^3 0.08 0.03 - 0.39 [facility] 10*3/uL SERVICES BASO x10^3 <0.03 0.01 - 0.07 [facility] 10*3/uL SERVICES Specimen Blood - VENOUS Performing Organization Address City/State/Zipcode Phone Number [facility] CLIA: [id number] [place] [address] [place] [address] BASIC METABOLIC PANEL (NA, K, CL, CO2, GLUCOSE, BUN, CREATININE, CA) (03/18/2020 6:44 AM ADDRESSOGRAPH OPERATOR) NA 125 (L) 135 - 145 [facility] mmol/L SERVICES K 4.9 3.5 - 5.0 [facility] mmol/L SERVICES CL 99 98 - 108 mmol/L [facility] SERVICES CO2 TOTAL 24 23 - 31 mmol/L [facility] AGAP 2 2 - 16 [facility] BUN 30 (H) 7 - 23 mg/dL [facility] GLUCOSE 92 70 - 110 mg/dL [facility] CREATININE 1.10 (H) 0.50 - 1.04 [facility] mg/dL SERVICES CALCIUM 8.4 (L) 8.6 - 10.6 [facility] mg/dL SERVICES eGFR Calculation 47.3 mL/min/1.73m2 [facility] (Non- SERVICES Ukrainian) eGFR Calculation 57.4 mL/min/1.73m2 [facility] () SERVICES Specimen Blood - VENOUS Narrative Performed At Association of Glomerular Filtration Rate (GFR) and St aging [facility] SERVICES of Kidney Disease* + + +------- ------ + | GFR (mL/min/1.73 m2) | With Kidney Damage | Wi thout Kidney Damage + + +------- ------ + | >90 | Stage one | Normal + + +------- ------ + | 60-89 | Stage two | Decreased GFR + + +------- ------ + | 30-59 | Stage three | Stage three + + +------- ------ + | 15-29 | Stage four | Stage four + + +------- ------ + | <15 (or dialysis) | Stage five | Stage five + + +------- ------ + *Each stage assumes the associated GFR level has been in effect for at least three months. Stages 1 to 5, wit h or without kidney disease, indicate chronic kidney disease. Notes: Determination of stages one and two (with eGFR >59mL/min/1.73 m2) requires estimation of kidney damag e for at least three months as defined by structural or func tional abnormalities of the kidney, manifested by either: Pathological abnormalities or Markers of kidney damage (including abnormalities in the composition of the blo od or urine or abnormalities in imaging tests) . Performing Organization Address City/State/Zipcode Phone Number [facility] CLIA: [id number] [place], [place] [id number] [address] [place] [address] Prepare Packed RBC (in units), 1 Units (03/17/2020 3:37 PM ADDRESSOGRAPH OPERATOR) Pathologist [facility] Cross Match Result Compatible LAB ISBT Blood Type Code 0600 LAB Unit Blood Type A Neg LAB Unit Number [id number] LAB Blood Expiration Date & [id number] LAB Time Status Information Issued LAB Product Identification Red Blood Cells LAB Product Code [id number] LAB Comment: Performed at [facility] Laboratory Services - [facility] Blood [place] [address] Toll Free: [phone] CLIA No. [id number] Specimen Performing Organization Address City/State/Zipcode Phone Number [facility] LAB Type and Screen - ONCE IMTIAZ (03/17/2020 1:47 PM ADDRESSOGRAPH OPERATOR) Pathologist [facility] ABO & RH A Positive LAB Comment: Performed at [facility] Laboratory Services - [facility] Blood [place] [address] Toll Free: [phone] CLIA No. [id number] IAT Negative LAB Comment: Performed at [facility] Laboratory Services - [facility] Blood [place] [address] Toll Free: [phone] CLIA No. [id number] Specimen VENOUS Performing Organization Address City/State/Zipcode Phone Number [facility] LAB BASIC METABOLIC PANEL (NA, K, CL, CO2, GLUCOSE, BUN, CREATININE, CA) (03/17/2020 9:54 AM ADDRESSOGRAPH OPERATOR) Pathologist [facility] NA 119 (LL) 135 - 145 [facility] mmol/L SERVICES K 4.8 3.5 - 5.0 [facility] mmol/L SERVICES CL 90 (L) 98 - 108 mmol/L [facility] SERVICES CO2 TOTAL 26 23 - 31 mmol/L [facility] SERVICES AGAP 3 2 - 16 [facility] SERVICES BUN 40 (H) 7 - 23 mg/dL [facility] SERVICES GLUCOSE 141 (H) 70 - 110 mg/dL [facility] CREATININE 1.42 (H) 0.50 - 1.04 [facility] mg/dL SERVICES CALCIUM 7.9 (L) 8.6 - 10.6 [facility] mg/dL SERVICES eGFR Calculation 35.2 mL/min/1.73m2 [facility] (Non- SERVICES Ukrainian) eGFR Calculation 42.7 mL/min/1.73m2 [facility] () SERVICES Specimen Blood - ARM, LEFT Narrative Performed At Association of Glomerular Filtration Rate (GFR) and St aging [facility] SERVICES of Kidney Disease* + + +------- ------ + | GFR (mL/min/1.73 m2) | With Kidney Damage | Wi thout Kidney Damage + + +------- ------ + | >90 | Stage one | Normal + + +------- ------ + | 60-89 | Stage two | Decreased GFR + + +------- ------ + | 30-59 | Stage three | Stage three + + +------- ------ + | 15-29 | Stage four | Stage four + + +------- ------ + | <15 (or dialysis) | Stage five | Stage five + + +------- ------ + *Each stage assumes the associated GFR level has been in effect for at least three months. Stages 1 to 5, wit h or without kidney disease, indicate chronic kidney disease. Notes: Determination of stages one and two (with eGFR >59mL/min/1.73 m2) requires estimation of kidney damag e for at least three months as defined by structural or func tional abnormalities of the kidney, manifested by either: Pathological abnormalities or Markers of kidney damage (including abnormalities in the composition of the blo od or urine or abnormalities in imaging tests) . Performing Organization Address City/State/Zipcode Phone Number [facility] CLIA: [id number] [place] [address] [place] [address] BASIC METABOLIC PANEL (NA, K, CL, CO2, GLUCOSE, BUN, CREATININE, CA) (03/17/2020 12:32 AM ADDRESSOGRAPH OPERATOR) NA 118 (LL) 135 - 145 [facility] mmol/L SERVICES K 5.0 3.5 - 5.0 [facility] mmol/L SERVICES CL 90 (L) 98 - 108 mmol/L [facility] SERVICES CO2 TOTAL 25 23 - 31 mmol/L [facility] SERVICES AGAP 3 2 - 16 [facility] SERVICES BUN 42 (H) 7 - 23 mg/dL [facility] SERVICES GLUCOSE 92 70 - 110 mg/dL [facility] SERVICES CREATININE 1.32 (H) 0.50 - 1.04 [facility] mg/dL SERVICES CALCIUM 7.8 (L) 8.6 - 10.6 [facility] mg/dL SERVICES eGFR Calculation 38.3 mL/min/1.73m2 [facility] (Non- SERVICES Ukrainian) eGFR Calculation 46.5 mL/min/1.73m2 [facility] () SERVICES Specimen Blood - ARM, LEFT Narrative Performed At [facility] of Glomerular Filtration Rate (GFR) and St aging [facility] SERVICES of Kidney Disease* + + +------- ------ + | GFR (mL/min/1.73 m2) | With Kidney Damage | Wi thout Kidney Damage + + +------- ------ + | >90 | Stage one | Normal + + +------- ------ + | 60-89 | Stage two | Decreased GFR + + +------- ------ + | 30-59 | Stage three | Stage three + + +------- ------ + | 15-29 | Stage four | Stage four + + +------- ------ + | <15 (or dialysis) | Stage five | Stage five + + +------- ------ + *Each stage assumes the associated GFR level has been in effect for at least three months. Stages 1 to 5, wit h or without kidney disease, indicate chronic kidney disease. Notes: Determination of stages one and two (with eGFR >59mL/min/1.73 m2) requires estimation of kidney damag e for at least three months as defined by structural or func tional abnormalities of the kidney, manifested by either: Pathological abnormalities or Markers of kidney damage (including abnormalities in the composition of the blo od or urine or abnormalities in imaging tests) . Performing Organization Address City/State/Zipcode Phone Number [facility] CLIA: [id number] [place], [place] [address] [address] [place] [address] CBC WITH DIFF (03/17/2020 12:32 AM ADDRESSOGRAPH OPERATOR) Pathologist [facility] WBC 6.55 4.30 - 11.10 [facility] 10*3/L SERVICES RBC 2.18 (L) 3.93 - 5.25 [facility] 10*6/L SERVICES HGB 6.9 (L) 11.6 - 15.0 [facility] g/dL SERVICES HCT 19.7 (L) 35.7 - 45.2 % [facility] SERVICES MCV 90.4 80.6 - 95.5 fL [facility] [facility] MCH 31.7 25.9 - 32.8 pg [facility] MCHC 35.0 31.6 - 35.1 [facility] g/dL SERVICES RDW-SD 40.9 39.0 - 49.9 fL [facility] RDW-CV 12.3 12.0 - 15.5 % [facility] PLT 125 (L) 166 - 358 [facility] 10*3/L SERVICES MPV 10.8 9.5 - 12.9 fL [facility] NRBC/100 WBC 0.0 0.0 - 10.0 /100 [facility] WBCs SERVICES NRBC x10^3 <0.01 10*3/L [facility] GRAN MAT (NEUT) % 69.0 % [facility] IMM GRAN % 1.20 % [facility] LYMPH % 20.6 % [facility] MONO % 7.9 % [facility] EOS % 1.1 % [facility] BASO % 0.2 % [facility] GRAN MAT x10^3(ANC) 4.52 1.88 - 7.09 [facility] 10*3/uL SERVICES IMM GRAN x10^3 0.08 (H) 0.00 - 0.06 [facility] 10*3/uL SERVICES LYMPH x10^3 1.35 1.32 - 3.29 [facility] 10*3/uL SERVICES MONO x10^3 0.52 0.33 - 0.92 [facility] 10*3/uL SERVICES EOS x10^3 0.07 0.03 - 0.39 [facility] 10*3/uL SERVICES BASO x10^3 <0.03 0.01 - 0.07 [facility] 10*3/uL SERVICES Specimen Blood - ARM, LEFT Performing Organization Address [facility] Cent[facility] Phone Number [facility] CLIA: [id number] [place], [place] [address] [address] [place] [address] CREATININE, URINE RANDOM (03/16/2020 7:47 PM ADDRESSOGRAPH OPERATOR) Pathologist Sig navi CREAT U 41.2 mg/dL [facility] Specimen Urine - URINE, CLEAN CATCH Performing Organization Address [facility]/Zipcode Phone Number [facility] CLIA: [id number] [place], [place] [phone] [facility] SODIUM, URINE RANDOM (03/16/2020 7:47 PM ADDRESSOGRAPH OPERATOR) Pathologist Sig nature NA URINE 12 mmol/L [facility] Specimen Urine - URINE, CLEAN CATCH Performing Organization Address [facility] Centercode Phone Number [facility] CLIA: [id number] [place], [place] [phone] [facility] OSMOLALITY URINE (03/16/2020 7:47 PM ADDRESSOGRAPH OPERATOR) Pathologist Sig nature OSMO U 208 50-1,100 mOsm/kg [facility] Specimen Urine - URINE, CLEAN CATCH Performing Organization Address [facility] Phone Number [facility] CLIA: [id number] [place] [address] [place] [address] OSMOLALITY, SERUM OR PLASMA (03/16/2020 3:26 PM ADDRESSOGRAPH OPERATOR) Pathologist Sig nature OSMOLALITY 265 (L) 278 - 305 mOsm/kg [facility] SERVICE S Specimen Blood - ARM, RIGHT Performing Organization Address [facility] Phone Number [facility] CLIA: [id number] [place] [address] [place] [address] BASIC METABOLIC PANEL (NA, K, CL, CO2, GLUCOSE, BUN, CREATININE, CA) (03/16/2020 3:26 PM ADDRESSOGRAPH OPERATOR) NA 116 (LL) 135 - 145 [facility] mmol/L SERVICES K 5.2 (H) 3.5 - 5.0 [facility] mmol/L SERVICES CL 85 (L) 98 - 108 mmol/L [facility] CO2 TOTAL 28 23 - 31 mmol/L [facility] AGAP 3 2 - 16 [facility] BUN 45 (H) 7 - 23 mg/dL [facility] GLUCOSE 121 (H) 70 - 110 mg/dL [facility] CREATININE 1.61 (H) 0.50 - 1.04 [facility] mg/dL SERVICES CALCIUM 7.9 (L) 8.6 - 10.6 [facility] mg/dL SERVICES eGFR Calculation 30.5 mL/min/1.73m2 [facility] (Non- SERVICES Ukrainian) eGFR Calculation 37.0 mL/min/1.73m2 [facility] () SERVICES Specimen Blood - ARM, RIGHT Narrative Performed At Association of Glomerular Filtration Rate (GFR) and St aging [facility] SERVICES of Kidney Disease* + + +------- ------ + | GFR (mL/min/1.73 m2) | With Kidney Damage | Wi thout Kidney Damage + + +------- ------ + | >90 | Stage one | Normal + + +------- ------ + | 60-89 | Stage two | Decreased GFR + + +------- ------ + | 30-59 | Stage three | Stage three + + +------- ------ + | 15-29 | Stage four | Stage four + + +------- ------ + | <15 (or dialysis) | Stage five | Stage five + + +------- ------ + *Each stage assumes the associated GFR level has been in effect for at least three months. Stages 1 to 5, wit h or without kidney disease, indicate chronic kidney disease. Notes: Determination of stages one and two (with eGFR >59mL/min/1.73 m2) requires estimation of kidney damag e for at least three months as defined by structural or func tional abnormalities of the kidney, manifested by either: Pathological abnormalities or Markers of kidney damage (including abnormalities in the composition of the blo od or urine or abnormalities in imaging tests) . Performing Organization Address City/[facility]/Zipcode Phone Number [facility] CLIA: [id number] [place] [address] [place] [address] CBC WITHOUT DIFF (03/16/2020 1:46 PM ADDRESSOGRAPH OPERATOR) Pathologist Sig nature WBC 7.29 4.30 - 11.10 [facility] 10*3/L SERVICES RBC 2.44 (L) 3.93 - 5.25 [facility] 10*6/L SERVICES HGB 7.7 (L) 11.6 - 15.0 g/dL [facility] HCT 22.4 (L) 35.7 - 45.2 % [facility] MCH 31.6 25.9 - 32.8 pg [facility] MCV 91.8 80.6 - 95.5 fL [facility] MCHC 34.4 31.6 - 35.1 g/dL [facility] PLT 137 (L) 166 - 358 10*3/L [facility] MPV 11.7 9.5 - 12.9 fL [facility] RDW-CV 12.4 12.0 - 15.5 % [facility] RDW-SD 41.5 39.0 - 49.9 fL [facility] NRBC x10^3 <0.01 10*3/L [facility] NRBC/100 WBC 0.0 0.0 - 10.0 /100 [facility] WBCs SERVICES IPF % [facility] Specimen Blood - ARM, LEFT Performing Organization Address City/[facility]/Zipcode Phone Number [facility] CLIA: [id number] [place] [address] [place] [address] CBC WITH DIFF (03/16/2020 5:13 AM ADDRESSOGRAPH OPERATOR) [facility] nature WBC 7.33 4.30 - 11.10 [facility] 10*3/L SERVICES RBC 2.26 (L) 3.93 - 5.25 [facility] 10*6/L SERVICES HGB 7.3 (L) 11.6 - 15.0 [facility] g/dL SERVICES HCT 20.3 (L) 35.7 - 45.2 % [facility] MCV 89.8 80.6 - 95.5 fL [facility] MCH 32.3 25.9 - 32.8 pg [facility] MCHC 36.0 (H) 31.6 - 35.1 [facility] g/dL SERVICES RDW-SD 39.8 39.0 - 49.9 fL [facility] RDW-CV 12.1 12.0 - 15.5 % [facility] PLT 120 (L) 166 - 358 [facility] 10*3/L SERVICES MPV 11.2 9.5 - 12.9 fL [facility] NRBC/100 WBC 0.0 0.0 - 10.0 /100 [facility] WBCs SERVICES NRBC x10^3 <0.01 10*3/L [facility] GRAN MAT (NEUT) % 77.1 % [facility] IMM GRAN % 0.80 % [facility] LYMPH % 14.9 % [facility] MONO % 6.4 % [facility] EOS % 0.8 % [facility] BASO % 0.0 % [facility] GRAN MAT x10^3(ANC) 5.65 1.88 - 7.09 [facility] 10*3/uL SERVICES IMM GRAN x10^3 0.06 0.00 - 0.06 [facility] 10*3/uL SERVICES LYMPH x10^3 1.09 (L) 1.32 - 3.29 [facility] 10*3/uL SERVICES MONO x10^3 0.47 0.33 - 0.92 [facility] 10*3/uL SERVICES EOS x10^3 0.06 0.03 - 0.39 [facility] 10*3/uL SERVICES BASO x10^3 <0.03 0.01 - 0.07 [facility] 10*3/uL SERVICES Specimen Blood - ARM, LEFT Performing Organization Address City/State/Zipcode Phone Number [facility] CLIA: [id number] [place], [place] [phone] [address] [place] [address] BASIC METABOLIC PANEL (NA, K, CL, CO2, GLUCOSE, BUN, CREATININE, CA) (03/16/2020 5:13 AM ADDRESSOGRAPH OPERATOR) NA 115 (LL) 135 - 145 [facility] mmol/L SERVICES K 5.2 (H) 3.5 - 5.0 [facility] mmol/L SERVICES CL 86 (L) 98 - 108 mmol/L [facility] SERVICES CO2 TOTAL 23 23 - 31 mmol/L [facility] SERVICES AGAP 6 2 - 16 [facility] SERVICES BUN 46 (H) 7 - 23 mg/dL [facility] SERVICES GLUCOSE 91 70 - 110 mg/dL [facility] SERVICES CREATININE 1.40 (H) 0.50 - 1.04 [facility] mg/dL SERVICES CALCIUM 7.9 (L) 8.6 - 10.6 [facility] mg/dL SERVICES eGFR Calculation 35.8 mL/min/1.73m2 [facility] (Non- SERVICES Ukrainian) eGFR Calculation 43.4 mL/min/1.73m2 [facility] () SERVICES Specimen Blood - ARM, LEFT Narrative Performed At Association of Glomerular Filtration Rate (GFR) and St aging [facility] SERVICES of Kidney Disease* + + +------- ------ + | GFR (mL/min/1.73 m2) | With Kidney Damage | Wi thout Kidney Damage + + +------- ------ + | >90 | Stage one | Normal + + +------- ------ + | 60-89 | Stage two | Decreased GFR + + +------- ------ + | 30-59 | Stage three | Stage three + + +------- ------ + | 15-29 | Stage four | Stage four + + +------- ------ + | <15 (or dialysis) | Stage five | Stage five + + +------- ------ + *Each stage assumes the associated GFR level has been in effect for at least three months. Stages 1 to 5, wit h or without kidney disease, indicate chronic kidney disease. Notes: Determination of stages one and two (with eGFR >59mL/min/1.73 m2) requires estimation of kidney damag e for at least three months as defined by structural or func tional abnormalities of the kidney, manifested by either: Pathological abnormalities or Markers of kidney damage (including abnormalities in the composition of the blo od or urine or abnormalities in imaging tests) . Performing Organization Address City/State/Zipcode Phone Number [facility] CLIA: [id number] [place] [address] [place] [address] CBC WITH DIFF (03/15/2020 6:18 AM ADDRESSOGRAPH OPERATOR) Pathologist Sig nature WBC 9.03 4.30 - 11.10 [facility] 10*3/L SERVICES RBC 2.41 (L) 3.93 - 5.25 [facility] 10*6/L SERVICES HGB 7.7 (L) 11.6 - 15.0 [facility] g/dL SERVICES HCT 21.7 (L) 35.7 - 45.2 % [facility] MCV 90.0 80.6 - 95.5 fL [facility] MCH 32.0 25.9 - 32.8 pg [facility] MCHC 35.5 (H) 31.6 - 35.1 [facility] g/dL SERVICES RDW-SD 39.4 39.0 - 49.9 fL [facility] RDW-CV 11.9 (L) 12.0 - 15.5 % [facility] PLT 111 (L) 166 - 358 [facility] 10*3/L SERVICES MPV 11.1 9.5 - 12.9 fL [facility] NRBC/100 WBC 0.0 0.0 - 10.0 /100 [facility] WBCs SERVICES NRBC x10^3 <0.01 10*3/L [facility] GRAN MAT (NEUT) % 86.1 % [facility] IMM GRAN % 0.40 % [facility] LYMPH % 8.3 % [facility] MONO % 5.1 % [facility] EOS % 0.1 % [facility] BASO % 0.0 % [facility] GRAN MAT x10^3(ANC) 7.77 (H) 1.88 - 7.09 [facility] 10*3/uL SERVICES IMM GRAN x10^3 0.04 0.00 - 0.06 [facility] 10*3/uL SERVICES LYMPH x10^3 0.75 (L) 1.32 - 3.29 [facility] 10*3/uL SERVICES MONO x10^3 0.46 0.33 - 0.92 [facility] 10*3/uL SERVICES EOS x10^3 <0.03 (L) 0.03 - 0.39 [facility] 10*3/uL SERVICES BASO x10^3 <0.03 0.01 - 0.07 [facility] 10*3/uL SERVICES Specimen Blood - ARM, LEFT Performing Organization Address [facility] Phone Number [facility] CLIA: [id number] [place] [address] [place] [address] TROPONIN I (03/14/2020 6:05 AM ADDRESSOGRAPH OPERATOR) Pathologist Sig nature TROPONIN I 0.026 <=0.034 ng/mL [facility] Specimen Blood - LINE, VENOUS Narrative Performed At Equal or Less than 0.034 ng/ml---Normal [facility] Note: Cardiac troponin begins to rise 3-4 hours after the onset of ischemia. Repeat in 4-6 hours if the sample w as drawn within 3-4 hours of the onset of the symptom and found normal. Between 0.035 and 0.120 ng/mL--- Borderline. Questiona ble myocardial injury or necrosis Note: Serial measurement may be necessary to confirm o r exclude the diagnosis of myocardial injury or necrosis ; Clinical correlation (symptoms, EKGs, imaging studies, and others) required; Repeat in 4-6 hours if clinically indicated. Equal or Higher than 0.121 ng/mL---Abnormal. Myocardia l Injury or Necrosis Likely Biotin has been reported to cause a negative bias, int erpret results relative to patient's use of biotin. Performing Organization Address [facility] Phone Number [facility] CLIA: [id number] [place] [address] [phone] 301 [facility] TROPONIN I (03/13/2020 10:57 PM ADDRESSOGRAPH OPERATOR) Pathologist Sig nature TROPONIN I 0.050 (H) <=0.034 ng/mL [facility] Specimen Blood - HAND, RIGHT Narrative Performed At Equal or Less than 0.034 ng/ml---Normal [facility] Note: Cardiac troponin begins to rise 3-4 hours after the onset of ischemia. Repeat in 4-6 hours if the sample w as drawn within 3-4 hours of the onset of the symptom and found normal. Between 0.035 and 0.120 ng/mL--- Borderline. Questiona ble myocardial injury or necrosis Note: Serial measurement may be necessary to confirm o r exclude the diagnosis of myocardial injury or necrosis ; Clinical correlation (symptoms, EKGs, imaging studies, and others) required; Repeat in 4-6 hours if clinically indicated. Equal or Higher than 0.121 ng/mL---Abnormal. Myocardia l Injury or Necrosis Likely Biotin has been reported to cause a negative bias, int erpret results relative to patient's use of biotin. Performing Organization Address City/[facility] Phone Number [facility] CLIA: [id number] [place] [address] [phone] [facility] CBC WITHOUT DIFF (03/13/2020 5:48 PM ADDRESSOGRAPH OPERATOR) Pathologist Sig [facility] WBC 7.81 4.30 - 11.10 [facility] 10*3/L SERVICES RBC 2.93 (L) 3.93 - 5.25 [facility] 10*6/L SERVICES HGB 9.2 (L) 11.6 - 15.0 g/dL [facility] HCT 27.5 (L) 35.7 - 45.2 % [facility] MCH 31.4 25.9 - 32.8 pg [facility] MCV 93.9 80.6 - 95.5 fL [facility] MCHC 33.5 31.6 - 35.1 g/dL [facility] PLT 106 (L) 166 - 358 10*3/L [facility] MPV 10.7 9.5 - 12.9 fL [facility] RDW-CV 12.3 12.0 - 15.5 % [facility] RDW-SD 42.5 39.0 - 49.9 fL [facility] NRBC x10^3 <0.01 10*3/L [facility] NRBC/100 WBC 0.0 0.0 - 10.0 /100 [facility] WBCs SERVICES IPF % [facility] Specimen Blood - LINE, VENOUS Performing Organization Address City/[facility] Phone Number [facility] CLIA: [id number] [place], [place] [phone] [facility] URINALYSIS (03/13/2020 2:39 PM ADDRESSOGRAPH OPERATOR) Pathologist Sig nature APPEARANCE Clear Clear [facility] COLOR Yellow Yellow [facility] PH 5.0 4.8 - 8.0 [facility] SP GRAVITY 1.011 1.003 - 1.030 [facility] GLU U QUAL Normal Normal [facility] BLOOD 1+ (A) Negative [facility] KETONES Negative Negative [facility] PROTEIN Negative Negative [facility] UROBILIN Normal Normal [facility] BILIRUBIN Negative Negative [facility] NITRITE Negative Negative [facility] LEUK LEONARDA Negative Negative [facility] RBC/HPF 1 0 - 3 HPF [facility] WBC/HPF 2 0 - 5 HPF [facility] BACTERIA Negative Negative [facility] MUCOUS Slight (A) Negative LPF [facility] SQ EPITH 1 <=2 HPF [facility] WBC CLUMPS <1 <=1 HPF [facility] HYAL CAST 29 (H) <=2 LPF [facility] Specimen Urine - URINE, CLEAN CATCH Performing Organization Address City/State/Zipcode Phone Number [facility] CLIA: [id number] [place] [address] [place] [address] XR PELVIS <3 VW (03/13/2020 1:03 PM ADDRESSOGRAPH OPERATOR) Specimen Impressions Performed At PACS/VR/DOSE Unremarkable left hip hemiarthroplasty c hange. Narrative Performed At This result has an attachment that is no t available. EXAM: PACS/VR/DOSE XR PELVIS <3 VW HISTORY: s/p op COMPARISON: Left hip radiographs dated 03/12/2020 FINDINGS: Imaging of the pelvis demonstrates interval changes of left hip hemiarthroplasty. Component alignment is unremarkable. There are no periprosthetic fractures. Postoperative soft tissue sw elling and gas are seen. Overlying skin jamila are in place. Procedure Note [facility], Radiant Results Inft User - 2020 2:05 PM ADDRESSOGRAPH OPERATOR EXAM: XR PELVIS <3 VW HISTORY: s/p op COMPARISON: Left hip radiographs dated 03/12/2020 FINDINGS: Imaging of the pelvis demonstrates inter cynthia changes of left hip hemiarthroplasty. Component alignment is unremarkable. There are no periprosthetic fractures. Postoperative soft tissue swelling and gas are seen. Overlying skin jamila are in plac e. IMPRESSION Unremarkable left hip hemiarthroplasty c hange. Performing Organization Address City/[facility]/Zipcode Phone Number PACS/VR/DOSE SURGICAL PATHOLOGY EXAM (03/13/2020 1:03 PM ADDRESSOGRAPH OPERATOR) Case Report Surgical Pathology Case: [id number] [facility] Authorizing Provider: Latasha Almaguer MD Collected: 03/13/2020 1303 SERVICES Ordering Location: [facility] OR Received: 03/15/2020 0844 Department Pathologist: Maxwell Patrick MD Specimen: FEMORAL HEAD, LEFT Final Diagnosis [facility] Srikanthi cammy Maldonado FEMORAL HEAD, LEFT, HEMIARTHROPLASTY: SERVICES signed by - BONE FRAGMENTATION, AND HEMORRHAGE, CONSISTENT W ITH FRACTURE SITE Celina, - OSTEOPENIA MD Maxwell on - NO MALIGNANCY IDENTIFIED 03/17/2020 at 10:32 AM Isadora Richards MD I have personally reviewed a ll specimens/slides and agree with all statements made by residents, fellows or pathologist assistants whose name(s) may appear on this report. Clinical Fall, initial [facility] Information encounter SERVICES [W19.XXXA]Closed fracture of left hip, initial encounter [S72.002A] Gross Description Specimen A is received in fo alin labeled with the patient's name, [facility] number, "femoral head, left" and consists of a femoral head (4.8 x 4.5 x 4.2 cm) with a ragged, hemorrhagic resection margin. The a [facility] rticular surface is pepe-pink and smooth measuring up to 0.2 cm in thickness. Sectioning reveals pink-yellow bony cut surfaces with soft brown cut surfaces at the margin. Gross medical photographs are ta SERVICES john and a administrative representative ful lface section is quadrasected and submitted in A1 A4 following decalcification. Lian Munoz, PathA2 Student COLTEN Caraballo ([facility]) Embedded Images [facility] SERVICES Specimen Tissue - FEMORAL HEAD, LEFT Performing Organization Address City/[facility]/Zipcode Phone Number [facility] CLIA: [id number] [place] [address] [place] [address] Blvd XR CHEST 1 VW (03/13/2020 5:39 AM ADDRESSOGRAPH OPERATOR) Specimen Impressions Performed At Impression: PACS/VR/DOSE No acute cardiac pulmonary process. Narrative Performed At This result has an attachment that is no t available. Exam: XR CHEST 1 VW PACS/VR/DOSE Clinical History: fever Comparison: 2018 Findings: Single frontal view of the chest is compared to the pr ior study. Cardiac silhouette is prominent. No acute infiltrate, pleural effusion, or pneumothorax is seen. Trachea is in midline. Bones are osteopenic and upper abdomen is unremarkable. Procedure Note [facility], Radiant Results Inft User - 2020 8:44 AM ADDRESSOGRAPH OPERATOR Exam: XR CHEST 1 VW Clinical History: fever Comparison: 2018 Findings: Single frontal view of the chest is comp ared to the prior study. Cardiac silhouette is prominent. No acute infilt rate, pleural effusion, or pneumothorax is seen. Trachea is in midl ine. Bones are osteopenic and upper abdomen is unremarkable. IMPRESSION Impression: No acute cardiac pulmonary process. Performing Organization Address [facility] Phone Number PACS/VR/DOSE BLOOD CULTURE SCREEN (03/13/2020 5:37 AM ADDRESSOGRAPH OPERATOR) Blood No organisms isolated No growth [facility] Culture-Aerobic Comment: SERVICES Previous preliminary verifie d result was Culture In Progress on 03/13/2020 at 1002 ADDRESSOGRAPH OPERATOR Previous preliminary verifie d result was No growth at 24 hours on 03/14/2020 at 0701 ADDRESSOGRAPH OPERATOR Previous preliminary verifie d result was No growth at 48 hours on 03/15/2020 at 0701 ADDRESSOGRAPH OPERATOR Previous preliminary verifie d result was No growth at 72 hours on 03/16/2020 at 0701 ADDRESSOGRAPH OPERATOR Blood No organisms isolated No growth [facility] Culture-Anaerobic Comment: SERVICES Previous preliminary verifie d result was Culture In Progress on 03/13/2020 at 1002 ADDRESSOGRAPH OPERATOR Previous preliminary verifie d result was No growth at 24 hours on 03/14/2020 at 0701 ADDRESSOGRAPH OPERATOR Previous preliminary verifie d result was No growth at 48 hours on 03/15/2020 at 0701 ADDRESSOGRAPH OPERATOR Previous preliminary verifie d result was No growth at 72 hours on 03/16/2020 at 0701 ADDRESSOGRAPH OPERATOR Specimen Blood - VENOUS Performing Organization Address City/[facility] Phone Number [facility] CLIA: [id number] [place] [address] [place] [address] BLOOD CULTURE SCREEN (03/13/2020 5:37 AM ADDRESSOGRAPH OPERATOR) [facility] Blood No organisms isolated No growth [facility] Culture-Aerobic Comment: SERVICES Previous preliminary verifie d result was Culture In Progress on 03/13/2020 at 1002 ADDRESSOGRAPH OPERATOR Previous preliminary verifie d result was No growth at 24 hours on 03/14/2020 at 0701 ADDRESSOGRAPH OPERATOR Previous preliminary verifie d result was No growth at 48 hours on 03/15/2020 at 0701 ADDRESSOGRAPH OPERATOR Previous preliminary verifie d result was No growth at 72 hours on 03/16/2020 at 0701 ADDRESSOGRAPH OPERATOR Blood No organisms isolated No growth [facility] Culture-Anaerobic Comment: SERVICES Previous preliminary verifie d result was Culture In Progress on 03/13/2020 at 1002 ADDRESSOGRAPH OPERATOR Previous preliminary verifie d result was No growth at 24 hours on 03/14/2020 at 0701 ADDRESSOGRAPH OPERATOR Previous preliminary verifie d result was No growth at 48 hours on 03/15/2020 at 0701 ADDRESSOGRAPH OPERATOR Previous preliminary verifie d result was No growth at 72 hours on 03/16/2020 at 0701 ADDRESSOGRAPH OPERATOR Specimen Blood - VENOUS Performing Organization Address City/[facility]/Zipcode Phone Number [facility] CLIA: [id number] [place] [address] [place] [address] Prothrombin Time / INR (03/13/2020 5:31 AM ADDRESSOGRAPH OPERATOR) [facility] PROTIME PATIENT 12.7 (H) 10.1 - 12.6 [facility] Seconds SERVICES INR 1.1Comment: Normal [facility] INR <1.1; Warfarin SERVICES Therapeutic range 2.0 to 3.0 or 2.5 to 3.5, depending upon the indications. Specimen Blood - ARM, LEFT Performing Organization Address City/[facility]/Zipcode Phone Number [facility] CLIA: [id number] [place] [address] [place] [address] CBC with Differential (03/13/2020 5:31 AM ADDRESSOGRAPH OPERATOR) [facility] WBC 7.48 4.30 - 11.10 [facility] 10*3/L SERVICES RBC 3.42 (L) 3.93 - 5.25 [facility] 10*6/L SERVICES HGB 11.0 (L) 11.6 - 15.0 [facility] g/dL SERVICES HCT 31.2 (L) 35.7 - 45.2 % [facility] MCV 91.2 80.6 - 95.5 fL [facility] MCH 32.2 25.9 - 32.8 pg [facility] MCHC 35.3 (H) 31.6 - 35.1 [facility] g/dL SERVICES RDW-SD 40.9 39.0 - 49.9 fL [facility] RDW-CV 12.4 12.0 - 15.5 % [facility] PLT 138 (L) 166 - 358 [facility] 10*3/L SERVICES MPV 11.8 9.5 - 12.9 fL [facility] NRBC/100 WBC 0.0 0.0 - 10.0 /100 [facility] WBCs SERVICES NRBC x10^3 <0.01 10*3/L [facility] GRAN MAT (NEUT) % 80.1 % [facility] IMM GRAN % 0.50 % [facility] LYMPH % 10.4 % [facility] MONO % 5.6 % [facility] EOS % 3.1 % [facility] BASO % 0.3 % [facility] GRAN MAT x10^3(ANC) 5.99 1.88 - 7.09 [facility] 10*3/uL SERVICES IMM GRAN x10^3 0.04 0.00 - 0.06 [facility] 10*3/uL SERVICES LYMPH x10^3 0.78 (L) 1.32 - 3.29 [facility] 10*3/uL SERVICES MONO x10^3 0.42 0.33 - 0.92 [facility] 10*3/uL SERVICES EOS x10^3 0.23 0.03 - 0.39 [facility] 10*3/uL SERVICES BASO x10^3 <0.03 0.01 - 0.07 [facility] 10*3/uL SERVICES Specimen Blood - ARM, LEFT Performing Organization Address City/State/Zipcode Phone Number [facility] CLIA: [id number] [place] [address] [place] [address] Blvd ABORH CONFIRMATION (03/13/2020 12:10 AM ADDRESSOGRAPH OPERATOR) Pathologist Sig nature ABO & RH A Positive LAB Comment: Performed at [facility] Laboratory Services - [facility] Blood Bank [address] [place] [address] Toll Free: [phone] CLIA No. [id number] Specimen Performing Organization Address City/State/Zipcode Phone Number [facility] LAB Type and Screen - ONCE Routine (03/12/2020 8:52 PM ADDRESSOGRAPH OPERATOR) Pathologist Sig nature ABO & RH A POSITIVE LAB Comment: Performed at [facility] Laboratory Services - [facility] Blood [place] [address] Toll Free: [phone] CLIA No. [id number] IAT Negative LAB Comment: Performed at [facility] Laboratory Services - [facility] Blood [place] [address] Toll Free: [phone] CLIA No. [id number] Specimen Blood - VENOUS Performing Organization Address City/[facility] Cent[facility] Phone Number D LAB LAB ONLY COVID INTERPRETATION (03/12/2020 8:49 PM ADDRESSOGRAPH OPERATOR) COVID DMT Interpretation/Recommendations: [facility] Interpretation SERVICES Molecular NAAT Tests for Active Infection with the KAL S-CoV-2 Virus: This patient has tested nega tive on two occasions for the SARS-CoV-2 virus that causes COVID-19 illness. This most likely indicates that the patient does not have an active infection with the SARS-CoV-2 virus, especially if these tests coincide with the patient's current presentation. However, infection is not completely ruled out as the false negative rate for molecular NAAT testing using a nasophary ngeal sample can be up to 30 %, mostly dependent on the timing of sample collection in relation to illness onset and any deficiencies in sampling techniques. If the patient continues to have persistent o r worsening symptoms concern ing for COVID-19 illness, a repeat NAAT test (PCR, Rapid ID Now, etc.) should be performed, at which time the SARS-CoV-2 virus - if present - may have reached a detectable vi ral load (usually peaking by the end of the first week of symptoms). Tests for IgM and/or IgG Antibodies to SARS-CoV-2 Viru s: Testing for IgM and IgG anti bodies 1-3 weeks after illness onset will indicate whether the patient has produced antibodies to the virus. At this time, it is not known if the production of antibodies - s pecifically IgG antibodies - indicates whether the patient is immune to future infections with the SARS-CoV-2 virus. Interpretation Result Comments: These interpretation comment s are based upon all COVID-19 testing the patient has had at [facility], including molecular NAAT testing (more commonly known as PCR testing and Rapid ID Now testing) and antibody testing. It does not take i nto account any testing that a patient has had outside of the [facility] medical record. COVID Results SARS-CoV-2 Rapid ID NOW (no units) [facility] Date Value SERVICES 03/12/2020 Not Detected 09/22/2019 Not Detected Specimen Swab - NASOPHARYNGEAL SWAB Performing Organization Address City/State/Zipcode Phone Number [facility] CLIA: [id number] [place] [address] [place] [address] COVID-19 (ID NOW RAPID TESTING) (03/12/2020 8:49 PM ADDRESSOGRAPH OPERATOR) SARS-CoV-2 Rapid ID Not Detected Not Detected [facility] NOW SERVICES Specimen Swab - NASOPHARYNGEAL SWAB Narrative Performed At ID NOW COVID-19 Assay is an isothermal nucleic acid [facility] amplification test intended for the qualitative detect ion of nucleic acid from SARS-CoV-2 viral RNA in nasopharynge al (DOCUMENT REVIEWER) specimens. It is used under Emergency Use Authori zation (EUA) by FDA. The limit of detection (LOD) of the assa y is 125 Genome Equivalents/mL. A positive result is indicative of the presence of SARS-CoV-2 RNA. Clinical correlation with patient hi story and other diagnostic information is necessary to deter mine patient infection status. A negative (Not Detected) result does not preclude SARS-CoV-2 infection. In patients with clinical sympto ms and other tests that are consistent with SARS-CoV-2 infect ion, negative results should be treated as presumptive nega tive and a new specimen should be tested with alternative P CR molecular test. Invalid: Please collect a new specimen for repeat olivier ent testing if clinically indicated. Performing Organization Address City/State/Zipcode Phone Number [facility] CLIA: [id number] [place] [address] [phone] 301 [facility] ACTIVATED PARTIAL THRMPLAS LEONARDO (03/12/2020 8:49 PM ADDRESSOGRAPH OPERATOR) Pathologist Sig nature APTT Patient 27 26 - 36 Seconds [facility] Specimen Blood - VENOUS Performing Organization Address City/[facility]/Zipcode Phone Number [facility] CLIA: [id number] [place] [address] [phone] [facility] PROTHROMBIN TIME / INR (03/12/2020 8:49 PM ADDRESSOGRAPH OPERATOR) PROTIME PATIENT 11.5 10.1 - 12.6 [facility] Seconds SERVICES INR 1.0Comment: Normal [facility] INR <1.1; Warfarin SERVICES Therapeutic range 2.0 to 3.0 or 2.5 to 3.5, depending upon the indications. Specimen Blood - VENOUS Performing Organization Address [facility] Cent[facility]ode Phone Number [facility] CLIA: [id number] [place] [address] [phone] 301 [facility] COMP. METABOLIC PANEL ([id number]) (03/12/2020 8:49 PM ADDRESSOGRAPH OPERATOR) Pathologist Sig nature NA 130 (L) 135 - 145 [facility] mmol/L SERVICES K 3.7 3.5 - 5.0 [facility] mmol/L SERVICES CL 101 98 - 108 mmol/L [facility] CO2 TOTAL 26 23 - 31 mmol/L [facility] AGAP 3 2 - 16 [facility] BUN 19 7 - 23 mg/dL [facility] GLUCOSE 97 70 - 110 mg/dL [facility] CREATININE 0.98 0.50 - 1.04 [facility] mg/dL SERVICES TOTAL BILI 0.9 0.1 - 1.1 mg/dL [facility] CALCIUM 7.0 (L) 8.6 - 10.6 [facility] mg/dL SERVICES T PROTEIN 4.6 (L) 6.3 - 8.2 g/dL [facility] SERVICES ALBUMIN 2.5 (L) 3.5 - 5.0 g/dL [facility] ALK PHOS 73 34 - 122 U/L [facility] ALTv 19 5 - 35 U/L [facility] AST(SGOT) 27 13 - 40 U/L [facility] eGFR Calculation 54.1 mL/min/1.73m2 [facility] (Non- SERVICES Ukrainian) eGFR Calculation 65.5 mL/min/1.73m2 [facility] () SERVICES Specimen Blood - VENOUS Narrative Performed At Association of Glomerular Filtration Rate (GFR) and St aging [facility] SERVICES of Kidney Disease* + + +------- ------ + | GFR (mL/min/1.73 m2) | With Kidney Damage | Wi thout Kidney Damage + + +------- ------ + | >90 | Stage one | Normal + + +------- ------ + | 60-89 | Stage two | Decreased GFR + + +------- ------ + | 30-59 | Stage three | Stage three + + +------- ------ + | 15-29 | Stage four | Stage four + + +------- ------ + | <15 (or dialysis) | Stage five | Stage five + + +------- ------ + *Each stage assumes the associated GFR level has been in effect for at least three months. Stages 1 to 5, wit h or without kidney disease, indicate chronic kidney disease. Notes: Determination of stages one and two (with eGFR >59mL/min/1.73 m2) requires estimation of kidney damag e for at least three months as defined by structural or func tional abnormalities of the kidney, manifested by either: Pathological abnormalities or Markers of kidney damage (including abnormalities in the composition of the blo od or urine or abnormalities in imaging tests) . Performing Organization Address City/State/Zipcode Phone Number [facility] CLIA: [id number] [place], [place] [id number] [address] [place] [address] CBC WITH DIFF (03/12/2020 8:49 PM ADDRESSOGRAPH OPERATOR) Pathologist Sig nature WBC 8.95 4.30 - 11.10 [facility] 10*3/L SERVICES RBC 3.67 (L) 3.93 - 5.25 [facility] 10*6/L SERVICES HGB 11.8 11.6 - 15.0 [facility] g/dL SERVICES HCT 34.1 (L) 35.7 - 45.2 % [facility] MCV 92.9 80.6 - 95.5 fL [facility] SERVICES MCH 32.2 25.9 - 32.8 pg [facility] MCHC 34.6 31.6 - 35.1 [facility] g/dL SERVICES RDW-SD 41.3 39.0 - 49.9 fL [facility] RDW-CV 12.1 12.0 - 15.5 % [facility] PLT 118 (L) 166 - 358 [facility] 10*3/L SERVICES MPV 10.7 9.5 - 12.9 fL [facility] NRBC/100 WBC 0.0 0.0 - 10.0 /100 [facility] WBCs SERVICES NRBC x10^3 <0.01 10*3/L [facility] GRAN MAT (NEUT) % 86.9 % [facility] IMM GRAN % 0.20 % [facility] LYMPH % 6.3 % [facility] MONO % 5.9 % [facility] EOS % 0.6 % [facility] BASO % 0.1 % [facility] GRAN MAT x10^3(ANC) 7.78 (H) 1.88 - 7.09 [facility] 10*3/uL SERVICES IMM GRAN x10^3 <0.03 0.00 - 0.06 [facility] 10*3/uL SERVICES LYMPH x10^3 0.56 (L) 1.32 - 3.29 [facility] 10*3/uL SERVICES MONO x10^3 0.53 0.33 - 0.92 [facility] 10*3/uL SERVICES EOS x10^3 0.05 0.03 - 0.39 [facility] 10*3/uL SERVICES BASO x10^3 <0.03 0.01 - 0.07 [facility] 10*3/uL SERVICES Specimen Blood - VENOUS Performing Organization Address City/State/Zipcode Phone Number [facility] CLIA: [id number] [place], [place] [address] [address] [place] [address] XR FEMUR 2 VW LEFT (03/12/2020 7:37 PM ADDRESSOGRAPH OPERATOR) Specimen Impressions Performed At PACS/VR/DOSE Mildly impacted proximal femoral neck fr acture Osteopenia. Preliminary Report Dictated by Resident: Mason Velasco I, Nilo Rao MD., have reviewed this study and a gree with the above report. Narrative Performed At This result has an attachment that is no t available. EXAM: PACS/VR/DOSE XR FEMUR 2 VW LEFT XR HIPS 2 VW LEFT HISTORY: left hip pain COMPARISON: None FINDINGS: Left hip and femur radiographs demonstrate a mildly im pacted mid femoral neck fracture with varus angulation and craniocaudal i mpaction. Severe osteopenia is seen. Moderate left knee joint osteoarth ritic changes are partially seen. Vascular calcifications are present. S mall sized knee joint effusion is present. A urinary catheter is partially v isualized. Pelvic phleboliths are seen. Procedure Note [facility], Radiant Results Inft User - 2020 5:35 AM ADDRESSOGRAPH OPERATOR EXAM: XR FEMUR 2 VW LEFT XR HIPS 2 VW LEFT HISTORY: left hip pain COMPARISON: None FINDINGS: Left hip and femur radiographs demonstra te a mildly impacted mid femoral neck fracture with varus angulation and craniocaudal impaction. Severe osteopenia is seen. Moderate left knee j oint osteoarthritic changes are partially seen. Vascular calcifications are present. Small sized knee joint effusion is present. A urinary catheter is partially visualized. Pelvic phleboliths are seen. IMPRESSION Mildly impacted proximal femoral neck fr acture Osteopenia. Preliminary Report Dictated by Resident: Nilo Monaco MD., have reviewed th is study and agree with the above report. Performing Organization Address City/State/Zipcode Phone Number PACS/VR/DOSE XR HIPS 2 VW LEFT (03/12/2020 7:37 PM ADDRESSOGRAPH OPERATOR) Specimen Impressions Performed At PACS/VR/DOSE Mildly impacted proximal femoral neck fr acture Osteopenia. Preliminary Report Dictated by Resident: Nilo Monaco MD., have reviewed this study and a gree with the above report. Narrative Performed At This result has an attachment that is no t available. EXAM: PACS/VR/DOSE XR FEMUR 2 VW LEFT XR HIPS 2 VW LEFT HISTORY: left hip pain COMPARISON: None FINDINGS: Left hip and femur radiographs demonstrate a mildly im pacted mid femoral neck fracture with varus angulation and craniocaudal i mpaction. Severe osteopenia is seen. Moderate left knee joint osteoarth ritic changes are partially seen. Vascular calcifications are present. S mall sized knee joint effusion is present. A urinary catheter is partially v isualized. Pelvic phleboliths are seen. Procedure Note [facility], Radiant Results Inft User - 2020 5:35 AM ADDRESSOGRAPH OPERATOR EXAM: XR FEMUR 2 VW LEFT XR HIPS 2 VW LEFT HISTORY: left hip pain COMPARISON: None FINDINGS: Left hip and femur radiographs demonstra te a mildly impacted mid femoral neck fracture with varus angulation and craniocaudal impaction. Severe osteopenia is seen. Moderate left knee j oint osteoarthritic changes are partially seen. Vascular calcifications are present. Small sized knee joint effusion is present. A urinary catheter is partially visualized. Pelvic phleboliths are seen. IMPRESSION Mildly impacted proximal femoral neck fr acture Osteopenia. Preliminary Report Dictated by Resident: Nilo Monaco MD., have reviewed [facility] study and agree with the above report. 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 Administered Medications Medication Order MAR Action Action Date Dose Rate Site acetaminophen (TYLENOL) tablet Given 03/14/2020 3:12 PM ADDRESSOGRAPH OPERATOR 650 mg 650 mg 650 mg, Oral, Q6HPRN, Starting 03/13/20 at 0502, Until Discontinued, Routine, Pain (scale 1-3), Temp > 38.5 C Given 03/13/2020 5:17 AM ADDRESSOGRAPH OPERATOR 650 mg aspirin EC tablet 81 mg Given 03/18/2020 10:05 AM ADDRESSOGRAPH OPERATOR 81 mg 81 mg, Oral, DAILY, First dose on 03/13/20 at 0900, Until Discontinued, Routine Given 03/17/2020 8:25 AM ADDRESSOGRAPH OPERATOR 81 mg Given 03/16/2020 8:57 AM ADDRESSOGRAPH OPERATOR 81 mg atorvastatin (LIPITOR) tablet 20 mg Given 03/17/2020 7:56 PM ADDRESSOGRAPH OPERATOR 20 mg 20 mg, Oral, QHS, First dose on Sun03/12/20 at 2100, Until Discontinued Given 03/16/2020 9:08 PM ADDRESSOGRAPH OPERATOR 20 mg Given 03/15/2020 8:54 PM ADDRESSOGRAPH OPERATOR 20 mg carvediloL (COREG) tablet 12.5 mg Given 03/18/2020 5:46 PM ADDRESSOGRAPH OPERATOR 12.5 mg 12.5 mg, Oral, BID MEALS, First dose (after last modification) on Sun03/14/20 at 1700, Until Discontinued, Routine Given 03/18/2020 10:06 AM ADDRESSOGRAPH OPERATOR 12.5 mg Given 03/17/2020 5:27 PM ADDRESSOGRAPH OPERATOR 12.5 mg cloNIDine (CATAPRES) tablet 0.1 mg Given 03/18/2020 10:06 AM ADDRESSOGRAPH OPERATOR 0.1 mg 0.1 mg, Oral, BID, First dose (after last modification) on Sun03/14/20 at 2000, Until Discontinued, Routine Given 03/17/2020 7:56 PM ADDRESSOGRAPH OPERATOR 0.1 mg Given 03/17/2020 8:26 AM ADDRESSOGRAPH OPERATOR 0.1 mg enoxaparin (LOVENOX) injection 40 mg Given 03/18/2020 10:06 AM ADDRESSOGRAPH OPERATOR 40 mg Abdo men-SC 40 mg, Subcutaneous, Q24H, First dose on Sun03/14/20 at 0800, Until Discontinued, Routine Given 03/17/2020 8:25 AM ADDRESSOGRAPH OPERATOR 40 mg Abdo men-SC Given 03/16/2020 8:56 AM ADDRESSOGRAPH OPERATOR 40 mg Abdo men-SC Polyethylene Glycol 3350 (MIRALAX) powde r 17 g 17 g, Oral, DAILY, First dose (after last modification ) on Sun03/19/20 at 0900, Until Discontinued, Routine sennosides-docusate sodium (SENOKOT-S) 8 .6-50 mg per tablet 1 tablet 1 tablet, Oral, DAILY, First dose (after last modification) on Sun03/19/20 at 0900, Until Discontinued, Routine sodium chloride tablet 1 g Given 03/18/2020 10:06 AM ADDRESSOGRAPH OPERATOR 1 g 1 g, Oral, DAILY, First dose (after last modification) on Sun03/18/20 at 0900, Until Discontinued, Routine traMADoL (ULTRAM) tablet 50 mg Given 03/18/2020 5:46 PM ADDRESSOGRAPH OPERATOR 50 mg 50 mg, Oral, Q8HPRN, Starting Sun03/14/20 at 2200, Until Discontinued, Routine, Pain (scale 4-6), Pain (scale 7-10) Given 03/18/2020 2:25 AM ADDRESSOGRAPH OPERATOR 50 mg valsartan (DIOVAN) tablet 160 mg Given 03/18/2020 10:06 AM ADDRESSOGRAPH OPERATOR 160 mg 160 mg, Oral, BID, First dose (after last modification) on Sun03/14/20 at 2000, Until Discontinued, Routine Given 03/17/2020 7:56 PM ADDRESSOGRAPH OPERATOR 160 mg Given 03/17/2020 8:26 AM ADDRESSOGRAPH OPERATOR 160 mg Medication Order MAR Action Action Date Dose Rate Site carvediloL (COREG) tablet 12.5 Given 03/14/2020 8:27 AM ADDRESSOGRAPH OPERATOR 12. 5 mg mg 12.5 mg, Oral, TID MEALS, First dose on Sun03/12/20 at 2045, Until Discontinued, Routine Given 03/13/2020 5:02 PM ADDRESSOGRAPH OPERATOR 12.5 mg Given 03/13/2020 2:24 PM ADDRESSOGRAPH OPERATOR 12.5 mg ceFAZolin in dextrose (iso-os) (ANCEF) 2 Given 03/14/2020 3:55 AM ADDRESSOGRAPH OPERATOR 2 g gram/100 mL Piggyback 2 g 2 g (2,000 mg), IV Piggyback, Q8H ABX, 2 doses, First dose on 03/13/20 at 1745, Last dose on 03/14/20 at 0145, 100 mL, Reason for Anti-Infective: Surgical Prophylaxis, Surgical Prophylaxis: Orthopaedic, Duration of therapy: within 24 hours of surgery Given 03/13/2020 4:56 PM ADDRESSOGRAPH OPERATOR 2 g cloNIDine (CATAPRES) tablet 0.1 mg Given 03/14/2020 8:27 AM ADDRESSOGRAPH OPERATOR 0.1 mg 0.1 mg, Oral, TID, First dose on Sun03/12/20 at 2045, Until Discontinued, Routine Given 03/13/2020 10:45 PM ADDRESSOGRAPH OPERATOR 0.1 mg Given 03/13/2020 2:24 PM ADDRESSOGRAPH OPERATOR 0.1 mg furosemide (LASIX) tablet 40 mg Given 03/15/2020 8:52 AM ADDRESSOGRAPH OPERATOR 40 mg 40 mg, Oral, DAILY, First dose on Sun03/13/20 at 0900, Until Discontinued, Routine Given 03/14/2020 8:27 AM ADDRESSOGRAPH OPERATOR 40 mg Given 03/13/2020 8:25 AM ADDRESSOGRAPH OPERATOR 40 mg hydrALAZINE (APRESOLINE) tablet 25 mg Given 03/14/2020 8:27 AM ADDRESSOGRAPH OPERATOR 25 mg 25 mg, Oral, BID, First dose on Sun03/12/20 at 2045, Until Discontinued, Routine Given 03/13/2020 10:45 PM ADDRESSOGRAPH OPERATOR 25 mg Given 03/13/2020 8:25 AM ADDRESSOGRAPH OPERATOR 25 mg hydrALAZINE (APRESOLINE) tablet 25 mg Given 03/14/2020 4:55 PM ADDRESSOGRAPH OPERATOR 25 mg 25 mg, Oral, ONCE NOW, 1 dose, [place] 03/14/20 at 1800, Routine hydrALAZINE (APRESOLINE) tablet 25 mg Given 03/14/2020 10:32 PM ADDRESSOGRAPH OPERATOR 25 mg 25 mg, Oral, ONCE NOW, 1 dose, [place] 03/14/20 at 2315, Routine lactated ringers IV infusion New Bag 03/13/2020 2:58 PM ADDRESSOGRAPH OPERATOR 1,000 mL 42 mL/hr 1,000 mL at 42 mL/hr, 1,000 mL, IV Infusion, CONTINUOUS, Starting 03/13/20 at 1315, Until [place] 03/14/20 at 0748, Routine, PACU mirtazapine (REMERON) tablet 15 mg Given 03/13/2020 10:45 PM ADDRESSOGRAPH OPERATOR 15 mg 15 mg, Oral, QHS, First dose on Sun03/12/20 at 2100, Until Discontinued, Routine Given 03/13/2020 12:12 AM ADDRESSOGRAPH OPERATOR 15 mg morpHINE injection 4 mg Given 03/12/2020 6:59 PM ADDRESSOGRAPH OPERATOR 4 mg 4 mg, Slow IV Push, ONCE, 1 dose, Sun03/12/20 at 2000, STAT NaCl 0.9% (NS) bolus infusion 500 New Bag 03/16/2020 8:56 AM ADDRESSOGRAPH OPERATOR 500 mL 999 mL/hr mL at 999 mL/hr, 500 mL, IV Piggyback, ONCE, 1 dose, Sun03/16/20 at 0730, IMTIAZ Polyethylene Glycol 3350 (MIRALAX) powde r 17 g Given 03/14/2020 8:27 AM ADDRESSOGRAPH OPERATOR 17 g 17 g, Oral, DAILY, First dose on 03/13/20 at 0900, Until Discontinued, Routine Given 03/13/2020 8:25 AM ADDRESSOGRAPH OPERATOR 17 g Polyethylene Glycol 3350 (MIRALAX) powde r 17 g Given 03/17/2020 8:25 AM ADDRESSOGRAPH OPERATOR 17 g 17 g, Oral, BID MEALS, First dose (after last modification) on 03/15/20 at 0815, Until Discontinued, Routine Given 03/16/2020 8:57 AM ADDRESSOGRAPH OPERATOR 17 g Given 03/15/2020 8:55 PM ADDRESSOGRAPH OPERATOR 17 g sennosides-docusate sodium (SENOKOT-S) Given 03/15/2020 8:52 AM ADDRESSOGRAPH OPERATOR 1 tablet 8.6-50 mg per tablet 1 tablet 1 tablet, Oral, DAILY, First dose on 03/14/20 at 0945, Until Discontinued, Routine Given 03/14/2020 10:37 AM ADDRESSOGRAPH OPERATOR 1 tablet sennosides-docusate sodium (SENOKOT-S) Given 03/17/2020 7:56 PM ADDRESSOGRAPH OPERATOR 1 tablet 8.6-50 mg per tablet 1 tablet 1 tablet, Oral, BID, First dose (after last modification) on Sun03/15/20 at 2000, Until Discontinued, Routine Given 03/17/2020 8:25 AM ADDRESSOGRAPH OPERATOR 1 tablet Given 03/16/2020 8:57 AM ADDRESSOGRAPH OPERATOR 1 tablet sodium chloride tablet 1 g Given 03/17/2020 5:27 PM ADDRESSOGRAPH OPERATOR 1 g 1 g, Oral, TID MEALS, First dose on Sun03/16/20 at 2015, Until Discontinued, Routine Given 03/17/2020 12:49 PM ADDRESSOGRAPH OPERATOR 1 g Given 03/17/2020 8:25 AM ADDRESSOGRAPH OPERATOR 1 g traMADoL (ULTRAM) tablet 50 mg Given 03/14/2020 1:59 PM ADDRESSOGRAPH OPERATOR 50 mg 50 mg, Oral, TID, 6 doses, First dose on Sun03/12/20 at 2045, Last dose on 03/14/20 at 1400, Routine Given 03/14/2020 8:27 AM ADDRESSOGRAPH OPERATOR 50 mg Given 03/13/2020 10:45 PM ADDRESSOGRAPH OPERATOR 50 mg valsartan (DIOVAN) tablet 160 mg Given 03/14/2020 8:27 AM ADDRESSOGRAPH OPERATOR 160 mg 160 mg, Oral, DAILY, First dose on 03/13/20 at 0900, Until Discontinued, Routine Given 03/13/2020 2:21 PM ADDRESSOGRAPH OPERATOR 160 mg documented in this encounter Additional Health Concerns Infection Onset Date Last Indicated Resolved Time COVID-19 Rule Out 03/12/2020 03/12/2020 03/12/2020 9: 24 PM ADDRESSOGRAPH OPERATOR documented as of this encounter Insurance Payer Benefit Plan / Subscriber ID Effective Phone Address T ype Group Dates MEDICARE MEDICARE PART [id number] 2000-Pres [phone] Medicare A & B ent [id number] [place] [id number] COMMERCIAL COMMERCIAL [id number] 2009-Pres HMO/ PPO/POS NON-CONTRACT NON-CONTRACT ent GENERIC GENERIC documented as of this encounter
--- OUTSIDE RECORDS SUMMARY | 2020-03-18 19:58 | XMS REPORT | Continuity of Care Document ---
:1935 Author Organization [facility] t Address [address] [place] [address] Care Team Providers Name Role Phone Lana Bravo Attending Clinician Lillie Coyne MD Attending Clinician Antonino MEJIA Attending Clinician Franco MEJIA Attending Clinician Lillie Coyne MD Admitting Clinician Problems This patient has no known problems. Allergies, Adverse Reactions, Alerts This patient has no known allergies or adverse reactions. Medications This patient has no known medications. Procedures This patient has no known procedures. Encounters Start End Encounter Admission Attending Care Care Encounter Source Date/Time Date/Time Type Type Clinicians Facility Department ID 2020-03-12 2020-03-18 [facility] Devang Bahena [id number] 18:37:00 18:00:00 Encounter Aylin Coyne [id number] [facility] [id number] 2020-03-09 2020-03-09 Telephone LORENZO Gamez [id number] 00:00:00 00:00:00 [employer] [id number] [place] [id number] Professio [phone] [address] 2020-03-08 2020-03-08 Office Franco [facility] [id number] 15:03:15 16:14:19 Visit [facility] [id number] [place] [id number] Professio [phone] [place] [address] [address] Results This patient has no known results.
[2020-03-18 20:00] VITALS: BMI 27.4
[2020-03-18] MEDS: carvediloL 12.5 MG TAB PO SCH ×2 (20:35→20:37)
[2020-03-18] MEDS: HYDRALAZINE HCL 25 MG TABLET PO SCH (20:37)
[2020-03-18] MEDS: ATORVASTATIN 10 MG TAB PO SCH (20:37)
[2020-03-18] MEDS: cloNIDine HCL 0.1 MG TAB PO SCH (20:37)
[2020-03-18] MEDS: MIRTAZAPINE 15 MG TAB PO SCH (20:37)
[2020-03-19 00:47] LABS: Urine Appearance CLEAR; Urine Bilirubin NEGATIVE (NEG); Urine Blood NEGATIVE (NEG); Urine Color YELLOW; Urine Glucose NEGATIVE (NEG); Urine Protein NEGATIVE (NEG); Urine Specific Gravity <=1.005 (1.005-1.030); Urine pH 6.5 (5.0-7.0)
[2020-03-19 00:57] LABS: Urine Bacteria <20 /HPF (<20); Urine RBC NONE SEEN /HPF (NONE SEEN)
[2020-03-19 00:58] LABS: Urine Yeast MANY (NONE SEEN)
[2020-03-19] MEDS: carvediloL 12.5 MG TAB PO SCH ×2 (05:17→17:11)
[2020-03-19 06:58] LABS: Absolute Lymphocytes (CBC) 1.2 K/uL (0.7-4.9); Basophils % 0.5 % (0-1.3); Hematocrit 26.7 % (36.0-45.0); Lymphocytes % 19.8 % (15.3-44.8); MPV 9.1 fL (7.6-11.3); RBC Red Blood Cell Count 2.91 M/uL (3.86-4.86)
[2020-03-19 07:07] LABS: Albumin 2.3 g/dL (3.4-5.0); Magnesium 2.4 mg/dL (1.8-2.4); Potassium 4.7 mmol/L (3.5-5.1); Prealbumin 13.2 mg/dL (20-40)
[2020-03-19] MEDS: SODIUM CHLORIDE 1 GM TAB PO SCH ×2 (08:06→17:11)
[2020-03-19] MEDS: ASPIRIN 81 MG CHEWABLE TABLET PO SCH (08:06)
[2020-03-19] MEDS: FUROSEMIDE 40 MG TABLET PO SCH (08:07)
[2020-03-19] MEDS: VALSARTAN 160 MG TAB PO SCH (08:07)
[2020-03-19] MEDS: HYDRALAZINE HCL 25 MG TABLET PO SCH ×2 (08:07→20:33)
[2020-03-19] MEDS: cloNIDine HCL 0.1 MG TAB PO SCH ×3 (08:09→20:31)
--- NOTE | 2020-03-19 09:53 | P.RH.PN ---
Estimated Length of Stay: 14 Expected Discharge Date: 03/31/20 Discharge Disposition Plan: Home Family Support: Yes Vital Signs: Last Vital Signs Temp 98.6 F 03/19/20 08:00 Pulse 70 03/19/20 08:09 Resp 16 03/19/20 08:00 BP 178/61 H 03/19/20 08:09 Pulse Ox 98 03/19/20 08:00 Laboratory: Laboratory Last Values WBC 6.1 K/uL (4.3-10.9) 03/19/20 06:32 RBC 2.91 M/uL (3.86-4.86) L 03/19/20 06:32 Hgb 8.9 g/dL (12.0-15.0) L 03/19/20 06:32 Hct 26.7 % (36.0-45.0) L 03/19/20 06:32 MCV 91.9 fL (80-100) 03/19/20 06:32 MCH 30.5 pg (27.0-35.0) 03/19/20 06:32 MCHC 33.2 g/dL (32.0-36.0) 03/19/20 06:32 RDW 13.8 % (12.1-15.2) 03/19/20 06:32 Plt Count 135 K/uL (152-406) L 03/19/20 06:32 MPV 9.1 fL (7.6-11.3) 03/19/20 06:32 Neutrophils % 66.6 % (41.7-73.7) 03/19/20 06:32 Lymphocytes % 19.8 % (15.3-44.8) 03/19/20 06:32 Monocytes % 10.6 % (3.3-12.3) 03/19/20 06:32 Eosinophils % 2.5 % (0-4.4) 03/19/20 06:32 Basophils % 0.5 % (0-1.3) 03/19/20 06:32 Absolute Neutrophils 4.1 K/uL (1.8-8.0) 03/19/20 06:32 Absolute Lymphocytes 1.2 K/uL (0.7-4.9) 03/19/20 06:32 Absolute Monocytes 0.6 K/uL (0.1-1.3) 03/19/20 06:32 Absolute Eosinophils 0.2 K/uL (0-0.5) 03/19/20 06:32 Absolute Basophils 0.0 K/uL (0-0.5) 03/19/20 06:32 Sodium 135 mmol/L (136-145) L 03/19/20 06:32 Potassium 4.7 mmol/L (3.5-5.1) 03/19/20 06:32 Chloride 105 mmol/L (98-107) 03/19/20 06:32 Carbon Dioxide 27 mmol/L (21-32) 03/19/20 06:32 BUN 23 mg/dL (7-18) H 03/19/20 06:32 Creatinine 0.93 mg/dL (0.55-1.3) 03/19/20 06:32 Estimated GFR 57 mL/min (=/>90) L 03/19/20 06:32 Glucose 112 mg/dL (74-106) H 03/19/20 06:32 Calcium 8.5 mg/dL (8.5-10.1) 03/19/20 06:32 Magnesium 2.4 mg/dL (1.8-2.4) 03/19/20 06:32 Albumin 2.3 g/dL (3.4-5.0) L 03/19/20 06:32 Prealbumin 13.2 mg/dL (20-40) L 03/19/20 06:32 Urine Color Yellow 03/19/20 00:20 Urine Appearance Clear 03/19/20 00:20 Urine pH 6.5 (5.0-7.0) 03/19/20 00:20 Ur Specific [place] <=1.005 (1.005-1.030) 03/19/20 00:20 Glucose (UA)(Auto) Negative (NEG) 03/19/20 00:20 Urine Ketones Negative (NEG) 03/19/20 00:20 Urine Blood Negative (NEG) 03/19/20 00:20 Urine Nitrite Negative (NEG) 03/19/20 00:20 Urine Bilirubin Negative (NEG) 03/19/20 00:20 Urine Urobilinogen 1.0 mg/dL (0.2-1.0) 03/19/20 00:20 Ur Leukocyte Esterase Negative (NEG) 03/19/20 00:20 Urine RBC None seen /HPF (NONE SEEN) 03/19/20 00:20 Urine WBC <5 /HPF (<5) 03/19/20 00:20 Ur Squamous Epith Cells 5-10 /HPF (NONE SEEN) H 03/19/20 00:20 Urine Bacteria <20 /HPF (<20) 03/19/20 00:20 Urine Yeast Many (NONE SEEN) 03/19/20 00:20 Urine Culture Reflexed Not needed 03/19/20 00:20 Urine Total Protein Negative (NEG) 03/19/20 00:20 SARS-CoV-2 RNA (RT-PCR) Negative (NEGATIVE) 03/19/20 21:00 Weight: 159 lb 12.8 oz Wound Present: No Negative Pressure Wound Therapy Present: No Physician Update: She is doing well so far with therapy. Her pain is well managed. Walking with standby assistance 300' with mild fatigue. Hgb was 7.9 yesterday AM in the PM it increased to 9.3. Summary: Patient's care plan and intermodal customer service goals have been reviewed and revised as necessary. Please see the Rehabilitation Signature page for all necessary signatures.
--- NOTE | 2020-03-19 13:53 | R.HP ---
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 board/care, assisted living, assisted, transitional living) PRE-HOSPITAL LIVING WITH Family/Relatives ENCOUNTER PHYSICIAN: Dr. Caden Hayward M.D. 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 is a 84 yo Right-handed female of unknown race. On 03/12/2020 she was admitted to [facility] with diagnosis CLOSED DISPLACED FX OF LEFT FEMORAL N RASHAD. Her impairment category is Orthopaedic Disorders 08 - Bilateral Hip Fractures (08.12). Pre-morbidly, Pt. was independent/mod-I in Safety Awareness, Social Cognition, and Self-Care; and she had good Sphincter Control, Transfers Control, and Endurance. Currently, she has deficits of Locomotion, Safety Awareness, Balance, Social Cognition, and Transfers Control. Pt. is now referred to [facility] for acute in-patient rehabilitation in order to maximize patient's functional independence in activities of daily living, strength, ROM, and mobi lity. Patient has realistic goal of being discharged at assistance level 7-Ind to reside at Home with Fami ly/Relatives. lashanda Penaloza is a 84 -year- old female that lives at home independently at home. She lives in a single story home with family help when needed. She has a history of HTN, HLD, chronic back pain 2/2 compression fracture, admitted for left hip fracture. Patient had closed displaced fracture of left femoral neck 03/12/20. The patient would most definitely benefit from acute inpatient rehab and has become severely debilitated and unable to live at her prior level of activity at home getting her stronger to be back living at home independently is our goal. It is reasonable and necessary for the patient to come to acute inpatient rehab for approximately 7-10 days in order to return to her prior level of care. She is now being transferred to [facility] Inpatient rehabilitation and is medically stable with relatively stable labs. She is now medically stable but in need of 24 hour nursing, doctor supervision and The patient is reasonably expected to participate in 3 hours of therapy a day/15 hours per week and receive care with intensive interdisciplinary approach. COVID-19 screening performed; spoke with patient via phone. Patient denies new onset of fever, cough, difficulty breathing, sore throat, body aches and non-allergy nasal congestion in the past 24 hours. Patient denies travel outside of [place] in the past 14 days. Patient denies any contact with someone who has a confirmed diagnosis of or is under investigation for COVID-19 in the past 14 days. Patient has been tested negative for COVID- 19. MEDICATION ALLERGIES: AMLODIPINE ENVIRONMENTAL ALLERGIES: - Substance Allergies None Known - Other Allergies None Known PAST MEDICAL HISTORY: HYPERTENSION LEFT HIP PAIN HYPERLIPIDEMIA MYOCARDIAL INFARCTION PAST SURGICAL HISTORY: HYSTERECTOMY EYE SURGERY SOCIAL HISTORY: - Home Living Family/Relatives REVIEW OF SYSTEMS: - Gen No Chills Fatigue No Fever - Eyes No Double Vision No itchiness - ENMT No Difficulty Swallowing - CVS No Chest Discomfort No Chest Pain Fatigue No Weight Gain - Resp No Cough No Shortness of Breath - GI Continent No Abdominal Pain Constipation No Diarrhea - Continent No Kidney Pain No Painful Urination No Urinary Urgency - MSK No Joint Pain Muscle Cramps Stiffness - Skin No Itching No Rash No Suspicious Lesions - Neuro Coordination Difficulty No Difficulty with Concentration No Memory Loss No Seizures Weakness - Psych No Anxiety No Depression No HIV Exposure No Persistent Infections No Seasonal Allergies - Endo No Cold/Heat Intolerance No Excessive Hunger No Excessive Thirst No Excessive Urination PHYSICAL EXAM - Gen Alert and awake Lying in bed No apparent distress Oriented to: person, time, and place - Skin No skin breakdown. Normacephalic - Eyes No abnormalities - Neck No abnormalities - CVS RRR - Chest No abnormalities - Resp No wheezing - Abd +bowel sounds - GI Non distended Deferred - No abnormalities - Ext Mild left lower extremity edema. - MSK 4+/5 weakness in left lower extremity - Neuro 4/5 strength left lower extremity. - Psych No abnormalities VITAL SIGNS Temperature: 98.6 F SBP/DBP: 142/66 Pulse: 56 Resp: 18 NURSING: - Shower allowing shower - Skin care per protocol PRECAUTIONS: - Anterior Hip Precaution No abduction No active extension No adduction across midline No external rotation No hip flexion >90 degrees No internal rotation - Posterior Hip Precaution No adduction across midline No external rotation No hip flexion >90 degrees No internal rotation No wheel chair propulsion - Weight Bearing Precaution WBAT,LEFT , LE ACTIVITIES OOB only with supervision QI SCORES: - Self-Care A. Eating 03-Partial/moderate assistance B. Oral hygiene 03-Partial/moderate assistance C. Toileting hygiene 01-Dependent E. Shower/bathe self 01-Dependent F. Upper body dressing 03-Partial/moderate assistance G. Lower body dressing 01-Dependent H. Putting on/taking off footwear 88-Not attempted due to medical condition or safety concerns - Mobility A. Roll left and right 03-Partial/moderate assistance B. Sit to lying 03-Partial/moderate assistance C. Lying to sitting on side of bed 03-Partial/moderate assistance D. Sit to stand 03-Partial/moderate assistance E. Chair/rro-gt-nkrwk transfer 03-Partial/moderate assistance F. Toilet transfer 02-Substantial/maximal assistance G. Car transfer 88-Not attempted due to medical condition or safety concerns I. Walk 10 feet 88-Not attempted due to medical condition or safety concerns J. Walk 50 feet with two turns 88-Not attempted due to medical condition or safety concerns K. Walk 150 feet 88-Not attempted due to medical condition or safety concerns L. Walking 10 feet on uneven surfaces 88-Not attempted due to medical condition or safety concerns M. 1 step (curb) 88-Not attempted due to medical condition or safety concerns N. 4 steps 88-Not attempted due to medical condition or safety concerns O. 12 steps 88-Not attempted due to medical condition or safety concerns P. Picking up object 88-Not attempted due to medical condition or safety concerns R. Wheel 50 feet with two turns 88-Not attempted due to medical condition or safety concerns S. Wheel 150 feet 88-Not attempted due to medical condition or safety concerns - Bladder and Bowel Bladder continence Bowel continence - Endurance Fair - Balance Fair - Safety Awareness Fair CURRENT FUNC. DEFICITS: Self-Care, Mobility, Endurance, Balance, and Safety Awareness MEDICATIONS: - Other See attached MAR (Medication Administration Record) ASSESSMENT: Pt. is a 84 yo Right-handed female of unknown race.On 03/12/2020 she was [facility] ith diagnosis CLOSED DISPLACED FX OF LEFT FEMORAL NECK.Her impairment category is Orthopaedic Disorde rs 08 - Bilateral Hip Fractures (10.14).Pre-morbidly, Pt. was independent/mod-I in Safety Awareness, Social Cognition, and Self-Care; and she had good Sphincter Control, Transfers Control, and Enduranc e.Currently, she has deficits of Locomotion, Safety Awareness, Balance, Social Cognition, and Transfe rs Control.Pt. is now referred to [facility] for acute in-patient rehabilitati on in order to maximize patient's functional independence in activities of daily living, strength, RO M, and mobility.- Rehab Goal Patient has realistic goal of being discharged at assistance level 7-Ind to reside at Home with Fami ly/Relatives. lashanda Penaloza is a 84 -year- old female that lives at home independently at home. She lives in a single story home with family help when needed. She has a history of HTN, HLD, chronic back pain 2/2 compression fracture, admitted for left hip fracture. Patient had closed displaced fracture of left femoral neck 03/12/20. The patient would most definitely benefit from acute inpatient rehab and has become severely debilitated and unable to live at her prior level of activity at home getting her stronger to be back living at home independently is our goal. It is reasonable and necessary for the patient to come to acute inpatient rehab for approximately 7-10 days in order to return to her prior level of care. She is now being transferred to [facility] Inpatient rehabilitation and is medically stable with relatively stable labs. She is now medically stable but in need of 24 hour nursing, doctor supervision and The patient is reasonably expected to participate in 3 hours of therapy a day/15 hours per week and receive care with intensive interdisciplinary approach. COVID-19 screening performed; spoke with patient via phone. Patient denies new onset of fever, cough, difficulty breathing, sore throat, body aches and non-allergy nasal congestion in the past 24 hours. Patient denies travel outside of [place] in the past 14 days. Patient denies any contact with someone who has a confirmed diagnosis of or is under investigation for COVID-19 in the past 14 days. Patient has been tested negative for COVID- 19.REHAB PLAN: - Physical Therapy Decreased range of motion - to improve, our physical therapists will perform initial evaluation of pt 's status upon admission and devise an individualized program for increasing patient's Range of Motio n. Gait dysfunction - to improve, our physical therapists will perform initial evaluation of pt's status upon admission and devise an individualized program for Gait Training, and Wheel Chair mobility Inability to transfer - to improve, our physical therapists will perform initial evaluation of pt's s tatus upon admission and devise an individualized program for Bed mobility Need for home safety evaluation - to improve, our physical therapists will perform initial evaluation of pt's status upon admission and devise an individualized program for Home Evaluation Need in caregiver upon discharge - to improve, our physical therapists will perform initial evaluatio n of pt's status upon admission and devise an individualized program for Caregiver Training Edema - to improve, our physical therapists will perform initial evaluation of pt's status upon admi ssion and devise an individualized program for Elevation Training, and Lymphedema Therapy New precaution - to improve, our physical therapists will perform initial evaluation of pt's status u umesh admission and devise an individualized program for Patient precaution education Poor balance - to improve, our physical therapists will perform initial evaluation of pt's status upo n admission and devise an individualized program for Balance Training Weakness - to improve, our physical therapists will perform initial evaluation of pt's status upon ad mission and devise an individualized program for Aquatic Therapy, Neuromuscular Reeducation, and Stre ngthening Achieving independence - to improve, our physical therapists will perform initial evaluation of pt's status upon admission and devise an individualized program for Community Reintegration Activities - Occupational Therapy Cognitive deficits - to improve, our occupation therapists will perform initial evaluation of pt's st atus upon admission and devise an individualized program for Cognition - orientation Need for vp care management - to improve, our occupation therapists will perform initial evaluation of pt's s tatus upon admission and devise an individualized program for Caregiver Training Weakness - to improve, our occupation therapists will perform initial evaluation of pt's status upon admission and devise an individualized program for Aquatic Therapy, Balance, Endurance, UE ROM, and U E strengthening MEDICAL PLAN: - Anterior Hip Precaution No abduction No active extension No adduction across midline No external rotation No hip flexion >90 degrees No internal rotation - Diet - Liquid Texture Start Regular - Tube Feed Start N/A - Diet Type Start Regular - Posterior Hip Precaution No adduction across midline No external rotation No hip flexion >90 degrees No internal rotation No wheel chair propulsion - Weight Bearing Precaution WBAT,LEFT , LE - Skin care per protocol - Other See attached MAR (Medication Administration Record) - Diet - Solid Texture Regular - Shower shower DISCHARGE PLAN: - Estimated Length of Stay (days) 14. - Consensus on plan Discharge plan has been discussed with primary caregiver. Patient/Family is in agreement with the myrna n. Primary caregiver is in agreement with the plan. - Patient/Family Goals Return home independently. - Planned Living Setting Upon Discharge Home, to live with Family/Relatives. Transitional Living. 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
[2020-03-19] MEDS: ACETAMINOPHEN 500 MG TAB PO PRN (14:11)
[2020-03-19] MEDS: ENOXAPARIN 40 MG/0.4 ML SQ SCH (17:11)
[2020-03-19] MEDS: GABAPENTIN 100 MG CAP PO SCH (20:00)
[2020-03-19] MEDS: DOCUSATE NA/SENNA CONC 1 TAB PO PRN (20:31)
[2020-03-19] MEDS: ATORVASTATIN 10 MG TAB PO SCH (20:32)
[2020-03-19] MEDS: MIRTAZAPINE 15 MG TAB PO SCH (20:34)
[2020-03-19] MEDS: MELATONIN 3 MG TABLET PO PRN (20:34)
[2020-03-20] MEDS: carvediloL 12.5 MG TAB PO SCH ×2 (04:59→16:45)
[2020-03-20] MEDS: FUROSEMIDE 40 MG TABLET PO SCH (07:40)
[2020-03-20] MEDS: HYDRALAZINE HCL 25 MG TABLET PO SCH ×2 (07:40→19:28)
[2020-03-20] MEDS: GABAPENTIN 100 MG CAP PO SCH ×2 (08:00→19:27)
[2020-03-20] MEDS: ASPIRIN 81 MG CHEWABLE TABLET PO SCH (08:40)
[2020-03-20] MEDS: SODIUM CHLORIDE 1 GM TAB PO SCH ×2 (08:40→16:44)
[2020-03-20] MEDS: VALSARTAN 160 MG TAB PO SCH (08:40)
[2020-03-20] MEDS: ACETAMINOPHEN 500 MG TAB PO PRN (08:41)
[2020-03-20] MEDS: cloNIDine HCL 0.1 MG TAB PO SCH ×4 (09:00→19:27)
[2020-03-20] MEDS: ENOXAPARIN 40 MG/0.4 ML SQ SCH (16:44)
[2020-03-20] MEDS: FE SULF/FA/VIT B COMP & C TAB PO SCH (16:48)
[2020-03-20] MEDS: FERROUS SULFATE 325 MG TAB PO SCH (16:48)
[2020-03-20] MEDS: ATORVASTATIN 10 MG TAB PO SCH (19:27)
[2020-03-20] MEDS: ENSURE HIGH PROTEIN 237 ML CAN PO SCH (19:27)
[2020-03-20] MEDS: MIRTAZAPINE 15 MG TAB PO SCH (19:28)
[2020-03-21] MEDS: carvediloL 12.5 MG TAB PO SCH ×2 (05:31→17:31)
[2020-03-21] MEDS: FUROSEMIDE 40 MG TABLET PO SCH (07:24)
[2020-03-21] MEDS: HYDRALAZINE HCL 25 MG TABLET PO SCH ×2 (07:24→19:39)
[2020-03-21] MEDS: GABAPENTIN 100 MG CAP PO SCH ×2 (09:01→19:39)
[2020-03-21] MEDS: ASPIRIN 81 MG CHEWABLE TABLET PO SCH (09:01)
[2020-03-21] MEDS: FE SULF/FA/VIT B COMP & C TAB PO SCH (09:01)
[2020-03-21] MEDS: VALSARTAN 160 MG TAB PO SCH (09:01)
[2020-03-21] MEDS: SODIUM CHLORIDE 1 GM TAB PO SCH ×2 (09:01→17:31)
[2020-03-21] MEDS: ENSURE HIGH PROTEIN 237 ML CAN PO SCH ×2 (09:03→19:42)
[2020-03-21] MEDS: cloNIDine HCL 0.1 MG TAB PO SCH ×3 (10:17→19:38)
[2020-03-21] MEDS: FERROUS SULFATE 325 MG TAB PO SCH (12:24)
[2020-03-21] MEDS: ENOXAPARIN 40 MG/0.4 ML SQ SCH (16:27)
[2020-03-21] MEDS: MIRTAZAPINE 15 MG TAB PO SCH (19:38)
[2020-03-21] MEDS: ATORVASTATIN 10 MG TAB PO SCH (19:39)
[2020-03-22] MEDS: carvediloL 12.5 MG TAB PO SCH ×2 (05:44→16:54)
[2020-03-22 05:55] LABS: Absolute Lymphocytes (CBC) 1.1 K/uL (0.7-4.9); Basophils % 0.9 % (0-1.3); Hematocrit 22.6 % (36.0-45.0); Lymphocytes % 23.9 % (15.3-44.8); MPV 8.2 fL (7.6-11.3); RBC Red Blood Cell Count 2.42 M/uL (3.86-4.86)
[2020-03-22 06:05] LABS: Potassium 4.7 mmol/L (3.5-5.1)
[2020-03-22] MEDS: ENSURE HIGH PROTEIN 237 ML CAN PO SCH ×2 (08:00→19:50)
[2020-03-22] MEDS: ACETAMINOPHEN 500 MG TAB PO PRN ×2 (08:26→22:32)
[2020-03-22] MEDS: HYDRALAZINE HCL 25 MG TABLET PO SCH ×2 (08:26→19:49)
[2020-03-22] MEDS: cloNIDine HCL 0.1 MG TAB PO SCH ×3 (08:27→19:49)
[2020-03-22] MEDS: SODIUM CHLORIDE 1 GM TAB PO SCH ×2 (08:27→16:53)
[2020-03-22] MEDS: FUROSEMIDE 40 MG TABLET PO SCH (08:27)
[2020-03-22] MEDS: VALSARTAN 160 MG TAB PO SCH (08:27)
[2020-03-22] MEDS: FE SULF/FA/VIT B COMP & C TAB PO SCH (08:27)
[2020-03-22] MEDS: ASPIRIN 81 MG CHEWABLE TABLET PO SCH (08:28)
[2020-03-22] MEDS: FERROUS SULFATE 325 MG TAB PO SCH (08:28)
[2020-03-22] MEDS: GABAPENTIN 100 MG CAP PO SCH ×2 (08:28→19:49)
[2020-03-22] MEDS ORDERED: NA CHLORIDE 0.9% 250 ML IV SCH (11:00)
[2020-03-22] MEDS: ENOXAPARIN 40 MG/0.4 ML SQ SCH (16:54)
--- NOTE | 2020-03-22 17:30 | PAPE ---
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 Caden Hayward M.D. ADMISSION DIAGNOSIS: LEFT HIP FRACTURE ONSET DATE 03/12/2020 POST-ADMISSION FUNCTIONAL/MEDICAL STATUS: - Bladder Same accident frequency: Ind - No accidents in the past 7 days - Bowel Same accident frequency: Ind - No accidents in the past 7 days - Walking Same score based on distance walked: 0(N/A) Same score based on distance walked: 1(<=50ft) - Wheelchair Same score based on distance traveled: 0(N/A) STATUS CHANGE EVALUATION: No change in Functional or Medical Status is identified compared with Pre-Admission screening. PATIENT NEEDS CLOSE MEDICAL SUPERVISION BY A REHABILITATION PHYSICIAN FOR: Coordination of Treatment Team PATIENT REQUIRES 24X7 REHAB NURSING FOR MEDICAL AND FUNCTIONAL MGT. OF THE FOLLOWING DEFICITS: Disease Management Medication Management Patient/Family Education Providing Safe Environment PATIENT REQUIRES INTENSIVE, COORDINATED INTERDISCIPLINARY APPROACH TO REHAB: Arranging Home Equipment/Services Discharge Planning Family Intervention/Training Test Center Administrator/Case Management LIST OF IDENTIFIED AND POTENTIAL PROBLEMS: Alteration in leisure activities Bladder, Incontinence Bowel, Incontinence Infection, Actual or Potential Mobility Impaired Pain, Alteration in Comfort Self Care Deficit Skin Integrity, Actual or Potential Urinary Tract Infection (UTI), Actual or Potential PATIENT COULD BE AT RISK FOR COMPLICATIONS FROM ADVERSE MEDICAL CONDITIONS DUE TO HIS/HER COMORBIDITI ES AND THE RIGORS OF THE INTENSIVE REHABILLITATION PROGRAM. METHODS OR INTERVENTIONS TO AVOID COMPLIC ATIONS INCLUDE: - Infection Clinical staff to assess and manage the signs and symptoms of infection including fever, redness, war mth, etc. - Urinary Tract Infection - Falls Patient will be evaluated for Fall Precautions and will be placed on Fall Precautions as indicated pe r protocol. - Skin Breakdown Nursing will assess skin daily using assessment tool and will place on Skin Breakdown Precautions as indicated per protocol. - Pain Clinical staff may employ non-medication methods such as massage, distraction, decrease stimulus, etc . as needed. Clinical staff will assess patient's pain level every shift per protocol to assess and e nsure pain management effectiveness. Medications will be given and the pain level re-assessed. PRELIMINARY PLAN OF CARE: - Physical Therapy Patient needs Physical Therapy for a daily minimum of 1.5 hours at least 5 out of 7 days, to improve: Mobility, Strengthening, Transfers, Stretching, ROM, Endurance, Ability to manage stairs, Gait, and Balance. - Speech Therapy Patient needs Speech Therapy for a daily minimum of 0.5 hours at least 5 out of 7 days, to improve: S wallowing, Cognition, Language Skills, and Compensatory Strategies. - Rehabilitation Nursing Patient requires 24x7 Rehabilitation Nursing for: Pain Issues, Identifying and preventing risk factor s, Monitoring and reporting current medical conditions, Assisting with ambulation and transfer, Alec ting with all ADL-s, Teaching patients about disease process and medications, Family teaching, Provid ing safe environment, Bowel and Bladder Issues, Skin Integrity, and Medication Management. Patient needs Test Center Administrator and/or Case Management for: Discharge Planning, Arranging Home Equipmen t or Services, and Family Interventions. - Dietary and Nutrition Services Patient needs Dietary and Nutrition Services for: Adequate Nutrition, Nutritional Supplements, and Nu tritional Education. - Occupational Therapy Patient needs Occupational Therapy for a daily minimum of 1.5 hours at least 5 out of 7 days, to impr ove Activities of Daily Living, including: Eating, Grooming, Bathing, Dressing, Toileting, Toilet Tra nsfers, Community Reintegration, Higher functional activities, Adaptive Equipment, Splinting, Househo ld Tasks, and Other activities as determined. QI SCORES: - Self-Care A. Eating 03-Partial/moderate assistance B. Oral hygiene 03-Partial/moderate assistance C. Toileting hygiene 01-Dependent E. Shower/bathe self 01-Dependent F. Upper body dressing 03-Partial/moderate assistance G. Lower body dressing 01-Dependent H. Putting on/taking off footwear 88-Not attempted due to medical condition or safety concerns - Mobility A. Roll left and right 03-Partial/moderate assistance B. Sit to lying 03-Partial/moderate assistance C. Lying to sitting on side of bed 03-Partial/moderate assistance D. Sit to stand 03-Partial/moderate assistance E. Chair/eow-pe-rmpyi transfer 03-Partial/moderate assistance F. Toilet transfer 02-Substantial/maximal assistance G. Car transfer 88-Not attempted due to medical condition or safety concerns I. Walk 10 feet 88-Not attempted due to medical condition or safety concerns J. Walk 50 feet with two turns 88-Not attempted due to medical condition or safety concerns K. Walk 150 feet 88-Not attempted due to medical condition or safety concerns L. Walking 10 feet on uneven surfaces 88-Not attempted due to medical condition or safety concerns M. 1 step (curb) 88-Not attempted due to medical condition or safety concerns N. 4 steps 88-Not attempted due to medical condition or safety concerns O. 12 steps 88-Not attempted due to medical condition or safety concerns P. Picking up object 88-Not attempted due to medical condition or safety concerns R. Wheel 50 feet with two turns 88-Not attempted due to medical condition or safety concerns S. Wheel 150 feet 88-Not attempted due to medical condition or safety concerns - Bladder and Bowel Bladder continence Bowel continence - Endurance Fair - Balance Fair - Safety Awareness Fair POTENTIAL FUNCTIONAL GOALS FOR PATIENT TO ACHIEVE BY DISCHARGE: - Safety Precaution Patient will remain free from falls or injury at time of discharge. - Bed Mobility Patient will perform bed mobility at 4-Leroy level of assistance. - Transfers Patient will complete transfers from bed to chair at 4-Leroy level of assistance. - Mobility Patient will ambulate 150 ft with 4-Leroy level of assistance with RW. PATIENT REHAB POTENTIAL Mildred PENALOZA is able and expected to receive 3 hours of individualized therapy daily on at least 5 of ever y 7 days Mildred WOODSs prognosis for significant practical improvement within a reasonable period of time appears Good Expected level of measurable improvement will be of a practical value to Mildred PENALOZA's functional capacit y or adaptations to impairments Has a viable Discharge Plan Medically appropriate; condition is sufficiently stable to participate in intensive rehab program DISCHARGE PLAN: - Estimated Length of Stay (days) 14. - Consensus on plan Discharge plan has been discussed with primary caregiver. Patient/Family is in agreement with the myrna n. Primary caregiver is in agreement with the plan. - Patient/Family Goals Return home independently. - Planned Living Setting Upon Discharge Home, to live with Family/Relatives. Transitional Living. CONCLUSION ON REHABILITATION NECESSITY: I have evaluated patient's pre-admission functional status and, comparing it to the patient's post-ad mission functional status now, I conclude that the pre-admission assessment was accurate. Patient's c ondition on admission supports the medical necessity of admission to IRF. It is safe to proceed with patient's therapy program. 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
[2020-03-22] MEDS: MIRTAZAPINE 15 MG TAB PO SCH (19:49)
[2020-03-22] MEDS: ATORVASTATIN 10 MG TAB PO SCH (19:49)
--- NOTE | 2020-03-23 02:29 | FAST ---
QUALITY INDICATORS FORM SHIFT START DATE/TIME: 03/22/2020 19:00 (MED AIDE) SHIFT END DATE/TIME: 03/23/2020 07:00 (MED AIDE) NAME MONTY PENALOZA DATE OF : 1935 DATE OF ADMISSION: 03/19/2020 13:48 (MED AIDE) PHONE: AGE: 84 SSN# [id number] GENDER: Female ENCOUNTER PHYSICIAN: Dr. Caden Hayward M.D. ADMISSION DIAGNOSIS: - Orthopaedic Disorders 08 - Bilateral Hip Fractures (08.12) LEFT HIP FRACTURE. EATING: Not assessed/no information CODE: - ORAL HYGIENE: Not assessed/no information CODE: - TOILETING HYGIENE: TOILETING HYGIENE - STEP 1: Does the patient complete the activity by him/herself with no assistance (physical, verbal/nonverbal cueing, setup/clean-up)? No. TOILETING HYGIENE - STEP 2: Does the patient need only setup/clean-up assistance from one helper? No. TOILETING HYGIENE - STEP 3: Does the patient need only verbal/nonverbal cueing or touching/steadying/contact guard assistance fro m one helper? Yes. 1. [id number] ADMISSION PERFORMANCE: Supervision or touching assistance CODE: 04 BATHING: Not assessed/no information CODE: - DRESSING - UPPER BODY: Not assessed/no information CODE: - DRESSING - LOWER BODY: Not assessed/no information CODE: - PUTTING ON/TAKING OFF FOOTWEAR: Not assessed/no information CODE: - ROLL LEFT AND RIGHT: ROLL LEFT AND RIGHT - STEP 1: Does the patient complete the activity by him/herself with no assistance (physical, verbal/nonverbal cueing, setup/clean-up)? No. ROLL LEFT AND RIGHT - STEP 2: Does the patient need only setup/clean-up assistance from one helper? No. ROLL LEFT AND RIGHT - STEP 3: Does the patient need only verbal/nonverbal cueing or touching/steadying/contact guard assistance fro m one helper? Yes. 1. [id number] ADMISSION PERFORMANCE: Supervision or touching assistance CODE: 04 SIT TO LYING: SIT TO LYING - STEP 1: Does the patient complete the activity by him/herself with no assistance (physical, verbal/nonverbal cueing, setup/clean-up)? No. SIT TO LYING - STEP 2: Does the patient need only setup/clean-up assistance from one helper? No. SIT TO LYING - STEP 3: Does the patient need only verbal/nonverbal cueing or touching/steadying/contact guard assistance fro m one helper? Yes. 1. [id number] ADMISSION PERFORMANCE: Supervision or touching assistance CODE: 04 LYING TO SITTING: LYING TO SITTING ON SIDE OF BED - STEP 1: Does the patient complete the activity by him/herself with no assistance (physical, verbal/nonverbal cueing, setup/clean-up)? No. LYING TO SITTING ON SIDE OF BED - STEP 2: Does the patient need only setup/clean-up assistance from one helper? No. LYING TO SITTING ON SIDE OF BED - STEP 3: Does the patient need only verbal/nonverbal cueing or touching/steadying/contact guard assistance fro m one helper? Yes. 1. [id number] ADMISSION PERFORMANCE: Supervision or touching assistance CODE: 04 SIT TO STAND: SIT TO STAND - STEP 1: Does the patient complete the activity by him/herself with no assistance (physical, verbal/nonverbal cueing, setup/clean-up)? No. SIT TO STAND - STEP 2: Does the patient need only setup/clean-up assistance from one helper? No. SIT TO STAND - STEP 3: Does the patient need only verbal/nonverbal cueing or touching/steadying/contact guard assistance fro m one helper? Yes. 1. [id number] ADMISSION PERFORMANCE: Supervision or touching assistance CODE: 04 TRANSFERS: BED, CHAIR: CHAIR/[id number] TRANSFER - STEP 1: Does the patient complete the activity by him/herself with no assistance (physical, verbal/nonverbal cueing, setup/clean-up)? No. CHAIR/[id number] TRANSFER - STEP 2: Does the patient need only setup/clean-up assistance from one helper? No. CHAIR/[id number] TRANSFER - STEP 3: Does the patient need only verbal/nonverbal cueing or touching/steadying/contact guard assistance fro m one helper? Yes. 1. [id number] ADMISSION PERFORMANCE: Supervision or touching assistance CODE: 04 TRANSFER TOILET: TOILET TRANSFER - STEP 1: Does the patient complete the activity by him/herself with no assistance (physical, verbal/nonverbal cueing, setup/clean-up)? No. TOILET TRANSFER - STEP 2: Does the patient need only setup/clean-up assistance from one helper? No. TOILET TRANSFER - STEP 3: Does the patient need only verbal/nonverbal cueing or touching/steadying/contact guard assistance fro m one helper? Yes. 1. [id number] ADMISSION PERFORMANCE: Supervision or touching assistance CODE: 04 TRANSFERS: CAR: Not assessed/no information CODE: - WALK 10 FEET: Not assessed/no information CODE: - 1 STEP (CURB): Not assessed/no information CODE: - PICKING UP OBJECT: Not assessed/no information CODE: - DOES THE PATIENT USE A WHEELCHAIR/SCOOTER? CODE: EXPR WHEEL 50 FEET WITH TWO TURNS: Not assessed/no information CODE: - INDICATE THE TYPE OF WHEELCHAIR/SCOOTER USED: CODE: EXPR WHEEL 150 FEET: Not assessed/no information CODE: - INDICATE THE TYPE OF WHEELCHAIR/SCOOTER USED: CODE: EXPR BLADDER AND BOWEL: H350. BLADDER CONTINENCE (3-DAY ASSESSMENT PERIOD): Always continent (no documented incontinence) CODE: 0 H400. BOWEL CONTINENCE (3-DAY ASSESSMENT PERIOD): Always continent CODE: 0
[2020-03-23 03:57] LABS: Hematocrit 25.6 % (36.0-45.0)
[2020-03-23] MEDS: carvediloL 12.5 MG TAB PO SCH ×2 (06:00→18:03)
[2020-03-23] MEDS: ENSURE HIGH PROTEIN 237 ML CAN PO SCH ×2 (08:00→20:00)
[2020-03-23] MEDS: ACETAMINOPHEN 500 MG TAB PO PRN (08:05)
[2020-03-23] MEDS: FUROSEMIDE 40 MG TABLET PO SCH (08:07)
[2020-03-23] MEDS: FERROUS SULFATE 325 MG TAB PO SCH (08:07)
[2020-03-23] MEDS: GABAPENTIN 100 MG CAP PO SCH ×2 (08:07→20:43)
[2020-03-23] MEDS: FE SULF/FA/VIT B COMP & C TAB PO SCH (08:07)
[2020-03-23] MEDS: ASPIRIN 81 MG CHEWABLE TABLET PO SCH (08:07)
[2020-03-23] MEDS: SODIUM CHLORIDE 1 GM TAB PO SCH ×2 (08:07→18:03)
[2020-03-23] MEDS: cloNIDine HCL 0.1 MG TAB PO SCH ×3 (08:08→20:42)
[2020-03-23] MEDS: HYDRALAZINE HCL 25 MG TABLET PO SCH ×2 (08:08→20:43)
[2020-03-23] MEDS: VALSARTAN 160 MG TAB PO SCH (08:08)
--- NOTE | 2020-03-23 17:53 | R.PN ---
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 Pt denied any Shortness of Breath. Ambulated 1000' with independence using a rolling walker. Up and down 20 steps with bilateral handrai ls and standby assistance. Self-propelled wheelchair 250' with standby assistance. Hgb increased to 8.4 from 7.6 after one unit of PRBCs. VITAL SIGNS Temperature: 98.0 F SBP/DBP: 150/45 Pulse: 71 Resp: 16 MEDICATION ALLERGIES: AMLODIPINE ENVIRONMENTAL ALLERGIES: - Substance Allergies None Known - Other Allergies None Known NURSING: - Shower allowing shower - Skin care per protocol PRECAUTIONS: - Anterior Hip Precaution No abduction No active extension No adduction across midline No external rotation No hip flexion >90 degrees No internal rotation - Posterior Hip Precaution No adduction across midline No external rotation No hip flexion >90 degrees No internal rotation No wheel chair propulsion - Weight Bearing Precaution WBAT,LEFT , LE ACTIVITIES OOB only with supervision THERAPIES: - Dietary and Nutrition Adequate Nutrition. Nutritional Education. Nutritional Supplements. PHYSICAL EXAM - Gen Alert and awake Lying in bed No apparent distress Oriented to: person, time, and place - Skin No skin breakdown. Normacephalic - Eyes No abnormalities - Neck No abnormalities - CVS RRR - Chest No abnormalities - Resp No wheezing - Abd +bowel sounds - GI Non distended Deferred - No abnormalities - Ext Mild left lower extremity edema. - MSK 4+/5 weakness in left lower extremity - Neuro 4/5 strength left lower extremity. - Psych No abnormalities ASSESSMENT: Pt. is a 84 yo Right-handed female of unknown race.On 03/12/2020 she was [facility] ith diagnosis CLOSED DISPLACED FX OF LEFT FEMORAL NECK.Her impairment category is Orthopaedic Disorde rs 08 - Bilateral Hip Fractures (08.12).Her impairment category is Orthopaedic Disorders 08 - Left hip fracture 8.11.Pre-morbidly, Pt. was independent/mod-I in Safety Awareness, Social Cognition, and Self-Care; and she had good Sphincter Control, Transfers Control, and Endurance.Currently, she has d eficits of Locomotion, Safety Awareness, Balance, Social Cognition, and Transfers Control.Pt. is now referred to [facility] for acute in-patient rehabilitation in order to maximiz e patient's functional independence in activities of daily living, strength, ROM, and mobility.- Reha b Goal Patient has realistic goal of being discharged at assistance level 7-Ind to reside at Home with Fami ly/Relatives. MDM/PLAN: - Physical Therapy Decreased range of motion - to improve, our physical therapists will perform initial evaluation of p t's status upon admission and devise an individualized program for increasing patient's Range of Tej on. Gait dysfunction - to improve, our physical therapists will perform initial evaluation of pt's statu s upon admission and devise an individualized program for Gait Training, and Wheel Chair mobility Inability to transfer - to improve, our physical therapists will perform initial evaluation of pt's status upon admission and devise an individualized program for Bed mobility Need for home safety evaluation - to improve, our physical therapists will perform initial evaluatio n of pt's status upon admission and devise an individualized program for Home Evaluation Need in caregiver upon discharge - to improve, our physical therapists will perform initial evaluati on of pt's status upon admission and devise an individualized program for Caregiver Training Edema - to improve, our physical therapists will perform initial evaluation of pt's status upon admis salina and devise an individualized program for Elevation Training, and Lymphedema Therapy New precaution - to improve, our physical therapists will perform initial evaluation of pt's status upon admission and devise an individualized program for Patient precaution education Poor balance - to improve, our physical therapists will perform initial evaluation of pt's status up on admission and devise an individualized program for Balance Training Weakness - to improve, our physical therapists will perform initial evaluation of pt's status upon a dmission and devise an individualized program for Aquatic Therapy, Neuromuscular Reeducation, and Str engthening Achieving independence - to improve, our physical therapists will perform initial evaluation of pt's status upon admission and devise an individualized program for Community Reintegration Activities - Occupational Therapy Cognitive deficits - to improve, our occupation therapists will perform initial evaluation of pt's s tatus upon admission and devise an individualized program for Cognition - orientation Need for care professional - to improve, our occupation therapists will perform initial evaluation of pt's status upon admission and devise an individualized program for Caregiver Training Weakness - to improve, our occupation therapists will perform initial evaluation of pt's status upon admission and devise an individualized program for Aquatic Therapy, Balance, Endurance, UE ROM, and UE strengthening - Other See attached MAR (Medication Administration Record) - Anterior Hip Precaution No abduction No active extension No adduction across midline No external rotation No hip flexion >90 degrees No internal rotation - Diet - Liquid Texture Continue Regular - Tube Feed Continue N/A - Diet Type Continue Regular - Posterior Hip Precaution No adduction across midline No external rotation No hip flexion >90 degrees No internal rotation No wheel chair propulsion - Weight Bearing Precaution WBAT,LEFT , LE - Skin care per protocol - Diet - Solid Texture Continue Regular - Shower allowing shower FUNCTIONAL STATUS: UPDATED AT WEEKLY TEAM CONFERENCE - Bladder Same accident frequency: 7-Ind - No accidents in the past 7 days - Bowel Same accident frequency: 7-Ind - No accidents in the past 7 days - Walking Same score based on distance walked: 0(N/A) Same score based on distance walked: 1(<=50ft) - Wheelchair Same score based on distance traveled: 0(N/A) FUNCTIONAL STATUS: - Self-Care A. Eating Ind B. Grooming Ind C. Bathing Mark D. Dressing - Upper Mark E. Dressing - Lower sup F. Toileting sup - Sphincter Control G. Bladder control Mark H. Bowel control Mark - Transfers Control I. Bed/Chair/Wheelchair Mark J. Toilet Mark K. Tub/Shower sup - Locomotion L. Walk/Wheelchair (B) Ind M. Stairs sup - Communication N. Comprehension (B) Mark O. Expression (B) Mark - Social Cognition P. Social Interaction Mark Q. Problem Solving Mark R. Memory Mark - Endurance Good - Balance Good - Safety Awareness Good QI SCORES: - Self-Care A. Eating 03-Partial/moderate assistance B. Oral hygiene 03-Partial/moderate assistance C. Toileting hygiene 01-Dependent E. Shower/bathe self 01-Dependent F. Upper body dressing 03-Partial/moderate assistance G. Lower body dressing 01-Dependent H. Putting on/taking off footwear 88-Not attempted due to medical condition or safety concerns - Mobility A. Roll left and right 03-Partial/moderate assistance B. Sit to lying 03-Partial/moderate assistance C. Lying to sitting on side of bed 03-Partial/moderate assistance D. Sit to stand 03-Partial/moderate assistance E. Chair/rta-mb-yeudi transfer 03-Partial/moderate assistance F. Toilet transfer 02-Substantial/maximal assistance G. Car transfer 88-Not attempted due to medical condition or safety concerns I. Walk 10 feet 88-Not attempted due to medical condition or safety concerns J. Walk 50 feet with two turns 88-Not attempted due to medical condition or safety concerns K. Walk 150 feet 88-Not attempted due to medical condition or safety concerns L. Walking 10 feet on uneven surfaces 88-Not attempted due to medical condition or safety concerns M. 1 step (curb) 88-Not attempted due to medical condition or safety concerns N. 4 steps 88-Not attempted due to medical condition or safety concerns O. 12 steps 88-Not attempted due to medical condition or safety concerns P. Picking up object 88-Not attempted due to medical condition or safety concerns R. Wheel 50 feet with two turns 88-Not attempted due to medical condition or safety concerns S. Wheel 150 feet 88-Not attempted due to medical condition or safety concerns - Bladder and Bowel Bladder continence Bowel continence - Endurance Fair - Balance Fair - Safety Awareness Fair 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
[2020-03-23] MEDS: ENOXAPARIN 40 MG/0.4 ML SQ SCH (18:03)
[2020-03-23] MEDS: MIRTAZAPINE 15 MG TAB PO SCH (20:43)
[2020-03-23] MEDS: MELATONIN 3 MG TABLET PO PRN (20:43)
[2020-03-23] MEDS: DOCUSATE NA/SENNA CONC 1 TAB PO PRN (20:43)
[2020-03-23] MEDS: ATORVASTATIN 10 MG TAB PO SCH (20:43)
[2020-03-24] MEDS: carvediloL 12.5 MG TAB PO SCH ×2 (05:00→17:39)
[2020-03-24] MEDS: ACETAMINOPHEN 500 MG TAB PO PRN (07:23)
[2020-03-24] MEDS: FUROSEMIDE 40 MG TABLET PO SCH (07:23)
[2020-03-24] MEDS: HYDRALAZINE HCL 25 MG TABLET PO SCH ×2 (07:24→21:12)
[2020-03-24] MEDS: ENSURE HIGH PROTEIN 237 ML CAN PO SCH ×2 (08:00→21:12)
[2020-03-24] MEDS: VALSARTAN 160 MG TAB PO SCH (09:04)
[2020-03-24] MEDS: GABAPENTIN 100 MG CAP PO SCH ×2 (09:07→21:12)
[2020-03-24] MEDS: FE SULF/FA/VIT B COMP & C TAB PO SCH (09:08)
[2020-03-24] MEDS: SODIUM CHLORIDE 1 GM TAB PO SCH ×2 (09:08→17:39)
[2020-03-24] MEDS: FERROUS SULFATE 325 MG TAB PO SCH (09:08)
[2020-03-24] MEDS: ASPIRIN 81 MG CHEWABLE TABLET PO SCH (09:08)
[2020-03-24] MEDS: cloNIDine HCL 0.1 MG TAB PO SCH ×3 (10:18→21:11)
[2020-03-24] MEDS: ENOXAPARIN 40 MG/0.4 ML SQ SCH (17:39)
--- NOTE | 2020-03-24 18:00 | R.PN ---
PROGRESS NOTES ENCOUNTER DATE AND TIME: 03/24/2020 17:50 (BUDGET COORDINATOR) NAME MONTY PENALOZA DATE OF : 1935 DATE OF ADMISSION: 03/19/2020 13:48 (BUDGET COORDINATOR) LEFT HIP FRACTURECHIEF COMPLAINT: Left hip fracture SUBJECTIVE: Pt denied any depression. Pt denied any Shortness of Breath. Ambulated 1300' with modified independence using a rolling walker. Up and down 20 steps with bilatera l handrails and modified independence. Self-propelled wheelchair 250' with standby assistance. Hgb increased to 8.4 from 7.6 after one unit of PRBCs. VITAL SIGNS Temperature: 98.7 F SBP/DBP: 139/64 Pulse: 74 Resp: 16 MEDICATION ALLERGIES: AMLODIPINE ENVIRONMENTAL ALLERGIES: - Substance Allergies None Known - Other Allergies None Known NURSING: - Shower allowing shower - Skin care per protocol PRECAUTIONS: - Anterior Hip Precaution No abduction No active extension No adduction across midline No external rotation No hip flexion >90 degrees No internal rotation - Posterior Hip Precaution No adduction across midline No external rotation No hip flexion >90 degrees No internal rotation No wheel chair propulsion - Weight Bearing Precaution WBAT,LEFT , LE ACTIVITIES OOB only with supervision THERAPIES: - Dietary and Nutrition Adequate Nutrition. Nutritional Education. Nutritional Supplements. PHYSICAL EXAM - Gen Alert and awake Lying in bed No apparent distress Oriented to: person, time, and place - Skin No skin breakdown. Normacephalic - Eyes No abnormalities - Neck No abnormalities - CVS RRR - Chest No abnormalities - Resp No wheezing - Abd +bowel sounds - GI Non distended Deferred - No abnormalities - Ext Mild left lower extremity edema. - MSK 4+/5 weakness in left lower extremity - Neuro 4/5 strength left lower extremity. - Psych No abnormalities ASSESSMENT: Pt. is a 84 yo Right-handed female of unknown race.On 03/12/2020 she was admitted to [facility] ith diagnosis CLOSED DISPLACED FX OF LEFT FEMORAL NECK.Her impairment category is Orthopaedic Disorde rs 08 - Bilateral Hip Fractures (08.12).Her impairment category is Orthopaedic Disorders 08 - Left hip fracture 8.11.Pre-morbidly, Pt. was independent/mod-I in Safety Awareness, Social Cognition, and Self-Care; and she had good Sphincter Control, Transfers Control, and Endurance.Currently, she has d eficits of Locomotion, Safety Awareness, Balance, Social Cognition, and Transfers Control.Pt. is now referred to [facility] for acute in-patient rehabilitation in order to maximiz e patient's functional independence in activities of daily living, strength, ROM, and mobility.- Reha b Goal Patient has realistic goal of being discharged at assistance level 7-Ind to reside at Home with Fami ly/Relatives. MDM/PLAN: - Physical Therapy Decreased range of motion - to improve, our physical therapists will perform initial evaluation of p t's status upon admission and devise an individualized program for increasing patient's Range of Tej on. Gait dysfunction - to improve, our physical therapists will perform initial evaluation of pt's statu s upon admission and devise an individualized program for Gait Training, and Wheel Chair mobility Inability to transfer - to improve, our physical therapists will perform initial evaluation of pt's status upon admission and devise an individualized program for Bed mobility Need for home safety evaluation - to improve, our physical therapists will perform initial evaluatio n of pt's status upon admission and devise an individualized program for Home Evaluation Need in caregiver upon discharge - to improve, our physical therapists will perform initial evaluati on of pt's status upon admission and devise an individualized program for Caregiver Training Edema - to improve, our physical therapists will perform initial evaluation of pt's status upon admi ssion and devise an individualized program for Elevation Training, and Lymphedema Therapy New precaution - to improve, our physical therapists will perform initial evaluation of pt's status upon admission and devise an individualized program for Patient precaution education Poor balance - to improve, our physical therapists will perform initial evaluation of pt's status up on admission and devise an individualized program for Balance Training Weakness - to improve, our physical therapists will perform initial evaluation of pt's status upon a dmission and devise an individualized program for Aquatic Therapy, Neuromuscular Reeducation, and Str engthening Achieving independence - to improve, our physical therapists will perform initial evaluation of pt's status upon admission and devise an individualized program for Community Reintegration Activities - Occupational Therapy Cognitive deficits - to improve, our occupation therapists will perform initial evaluation of pt's s tatus upon admission and devise an individualized program for Cognition - orientation Need for home health care provider - to improve, our occupation therapists will perform initial evaluation of pt's status upon admission and devise an individualized program for Caregiver Training Weakness - to improve, our occupation therapists will perform initial evaluation of pt's status upon admission and devise an individualized program for Aquatic Therapy, Balance, Endurance, UE ROM, and UE strengthening - Other See attached MAR (Medication Administration Record) - Anterior Hip Precaution No abduction No active extension No adduction across midline No external rotation No hip flexion >90 degrees No internal rotation - Diet - Liquid Texture Continue Regular - Tube Feed Continue N/A - Diet Type Continue Regular - Posterior Hip Precaution No adduction across midline No external rotation No hip flexion >90 degrees No internal rotation No wheel chair propulsion - Weight Bearing Precaution WBAT,LEFT , LE - Skin care per protocol - Diet - Solid Texture Continue Regular - Shower allowing shower FUNCTIONAL STATUS: UPDATED AT WEEKLY TEAM CONFERENCE - Bladder Same accident frequency: 7-Ind - No accidents in the past 7 days - Bowel Same accident frequency: 7-Ind - No accidents in the past 7 days - Walking Same score based on distance walked: 0(N/A) Same score based on distance walked: 1(<=50ft) - Wheelchair Same score based on distance traveled: 0(N/A) FUNCTIONAL STATUS: - Self-Care A. Eating Ind B. Grooming Ind C. Bathing Mark D. Dressing - Upper Mark E. Dressing - Lower sup F. Toileting sup - Sphincter Control G. Bladder control Mark H. Bowel control Mark - Transfers Control I. Bed/Chair/Wheelchair Mark J. Toilet Mark K. Tub/Shower sup - Locomotion L. Walk/Wheelchair (B) Ind M. Stairs sup - Communication N. Comprehension (B) Mark O. Expression (B) Mark - Social Cognition P. Social Interaction Mark Q. Problem Solving Mark R. Memory Mark - Endurance Good - Balance Good - Safety Awareness Good QI SCORES: - Self-Care A. Eating 03-Partial/moderate assistance B. Oral hygiene 03-Partial/moderate assistance C. Toileting hygiene 01-Dependent E. Shower/bathe self 01-Dependent F. Upper body dressing 03-Partial/moderate assistance G. Lower body dressing 01-Dependent H. Putting on/taking off footwear 88-Not attempted due to medical condition or safety concerns - Mobility A. Roll left and right 03-Partial/moderate assistance B. Sit to lying 03-Partial/moderate assistance C. Lying to sitting on side of bed 03-Partial/moderate assistance D. Sit to stand 03-Partial/moderate assistance E. Chair/wob-uy-bsnnl transfer 03-Partial/moderate assistance F. Toilet transfer 02-Substantial/maximal assistance G. Car transfer 88-Not attempted due to medical condition or safety concerns I. Walk 10 feet 88-Not attempted due to medical condition or safety concerns J. Walk 50 feet with two turns 88-Not attempted due to medical condition or safety concerns K. Walk 150 feet 88-Not attempted due to medical condition or safety concerns L. Walking 10 feet on uneven surfaces 88-Not attempted due to medical condition or safety concerns M. 1 step (curb) 88-Not attempted due to medical condition or safety concerns N. 4 steps 88-Not attempted due to medical condition or safety concerns O. 12 steps 88-Not attempted due to medical condition or safety concerns P. Picking up object 88-Not attempted due to medical condition or safety concerns R. Wheel 50 feet with two turns 88-Not attempted due to medical condition or safety concerns S. Wheel 150 feet 88-Not attempted due to medical condition or safety concerns - Bladder and Bowel Bladder continence Bowel continence - Endurance Fair - Balance Fair - Safety Awareness Fair CURRENT [facility]. DEFICITS: Self-Care, Mobility, Endurance, Balance, and Safety Awareness SIGNATURE PANEL: (BUDGET COORDINATOR)
[2020-03-24] MEDS: ATORVASTATIN 10 MG TAB PO SCH (21:12)
[2020-03-24] MEDS: MIRTAZAPINE 15 MG TAB PO SCH (21:12)
[2020-03-25] MEDS: carvediloL 12.5 MG TAB PO SCH ×2 (05:50→17:35)
[2020-03-25 06:43] LABS: Absolute Lymphocytes (CBC) 1.1 K/uL (0.7-4.9); Basophils % 0.8 % (0-1.3); Hematocrit 25.8 % (36.0-45.0); Lymphocytes % 20.6 % (15.3-44.8); MPV 8.8 fL (7.6-11.3); RBC Red Blood Cell Count 2.75 M/uL (3.86-4.86)
[2020-03-25 06:53] LABS: Albumin 2.2 g/dL (3.4-5.0); Magnesium 1.9 mg/dL (1.8-2.4); Potassium 4.5 mmol/L (3.5-5.1); Prealbumin 11.3 mg/dL (20-40)
[2020-03-25] MEDS: SODIUM CHLORIDE 1 GM TAB PO SCH ×2 (08:26→17:35)
[2020-03-25] MEDS: ACETAMINOPHEN 500 MG TAB PO PRN (08:26)
[2020-03-25] MEDS: ASPIRIN 81 MG CHEWABLE TABLET PO SCH (08:26)
[2020-03-25] MEDS: GABAPENTIN 100 MG CAP PO SCH ×2 (08:27→21:02)
[2020-03-25] MEDS: VALSARTAN 160 MG TAB PO SCH (08:27)
[2020-03-25] MEDS: FERROUS SULFATE 325 MG TAB PO SCH (08:27)
[2020-03-25] MEDS: FUROSEMIDE 40 MG TABLET PO SCH (08:27)
[2020-03-25] MEDS: HYDRALAZINE HCL 25 MG TABLET PO SCH ×2 (08:28→21:01)
[2020-03-25] MEDS: FE SULF/FA/VIT B COMP & C TAB PO SCH (08:28)
[2020-03-25 09:57] LABS: Urine Appearance CLOUDY; Urine Bilirubin NEGATIVE (NEG); Urine Blood NEGATIVE (NEG); Urine Color YELLOW; Urine Glucose NEGATIVE (NEG); Urine Protein NEGATIVE (NEG); Urine Specific Gravity 1.015 (1.005-1.030); Urine pH 5.5 (5.0-7.0)
[2020-03-25] MEDS: cloNIDine HCL 0.1 MG TAB PO SCH ×3 (10:35→21:01)
[2020-03-25] MEDS: ENSURE HIGH PROTEIN 237 ML CAN PO SCH ×2 (10:37→21:06)
[2020-03-25 10:55] LABS: Urine Microscopic Reflex ORDER UMIC
[2020-03-25 11:05] LABS: Urine Bacteria >50 /HPF (<20); Urine RBC NONE SEEN /HPF (NONE SEEN)
--- NOTE | 2020-03-25 16:25 | RAD REPORT ---
EXAM DESCRIPTION: RAD - Chest Single View - 03/25/2020 3:59 pm CLINICAL HISTORY: elevated temp Chest pain. COMPARISON: No comparisons FINDINGS: Portable technique limits examination quality. The lungs are grossly clear. Trace left pleural effusion. The heart is normal in size. No displaced f ractures.
[2020-03-25] MEDS: ENOXAPARIN 40 MG/0.4 ML SQ SCH (16:38)
--- NOTE | 2020-03-25 18:35 | R.PN ---
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 Pt denied any Shortness of Breath. Ambulated 1600' with modified independence using a rollator. Up and down 25 steps with bilateral hand rails and independence. Self-propelled wheelchair 250' with standby assistance. Hgb increased to 8.4 from 7.6 after one unit of PRBCs. WBC 5.4, learning and development manager 1.4, procalcitonin 0.07, Lactic a vlad 1.4, chest x-ray shows grossly clear lungs. VITAL SIGNS Temperature: 100.8 F SBP/DBP: 144/56 Pulse: 68 Resp: 16 MEDICATION ALLERGIES: AMLODIPINE ENVIRONMENTAL ALLERGIES: - Substance Allergies None Known - Other Allergies None Known NURSING: - Shower allowing shower - Skin care per protocol PRECAUTIONS: - Anterior Hip Precaution No abduction No active extension No adduction across midline No external rotation No hip flexion >90 degrees No internal rotation - Posterior Hip Precaution No adduction across midline No external rotation No hip flexion >90 degrees No internal rotation No wheel chair propulsion - Weight Bearing Precaution WBAT,LEFT , LE ACTIVITIES OOB only with supervision THERAPIES: - Dietary and Nutrition Adequate Nutrition. Nutritional Education. Nutritional Supplements. PHYSICAL EXAM - Gen Alert and awake Lying in bed No apparent distress Oriented to: person, time, and place - Skin No skin breakdown. Normacephalic - Eyes No abnormalities - Neck No abnormalities - CVS RRR - Chest No abnormalities - Resp No wheezing - Abd +bowel sounds - GI Non distended Deferred - No abnormalities - Ext Mild left lower extremity edema. - MSK 4+/5 weakness in left lower extremity - Neuro 4/5 strength left lower extremity. - Psych No abnormalities ASSESSMENT: Pt. is a 84 yo Right-handed female of unknown race.On 03/12/2020 she was admitted to [facility] diagnosis CLOSED DISPLACED FX OF LEFT FEMORAL NECK.Her impairment category is Orthopaedic Disorde rs 08 - Bilateral Hip Fractures (08.12).Her impairment category is Orthopaedic Disorders 08 - Left hip fracture 8.11.Pre-morbidly, Pt. was independent/mod-I in Safety Awareness, Social Cognition, and Self-Care; and she had good Sphincter Control, Transfers Control, and Endurance.Currently, she has d eficits of Locomotion, Safety Awareness, Balance, Social Cognition, and Transfers Control.Pt. is now referred to [facility] for acute in-patient rehabilitation in order to maximiz e patient's functional independence in activities of daily living, strength, ROM, and mobility.- Reha b Goal Patient has realistic goal of being discharged at assistance level 7-Ind to reside at Home with Fami ly/Relatives. MDM/PLAN: - Physical Therapy Decreased range of motion - to improve, our physical therapists will perform initial evaluation of p t's status upon admission and devise an individualized program for increasing patient's Range of Tej on. Gait dysfunction - to improve, our physical therapists will perform initial evaluation of pt's statu s upon admission and devise an individualized program for Gait Training, and Wheel Chair mobility Inability to transfer - to improve, our physical therapists will perform initial evaluation of pt's status upon admission and devise an individualized program for Bed mobility Need for home safety evaluation - to improve, our physical therapists will perform initial evaluatio n of pt's status upon admission and devise an individualized program for Home Evaluation Need in caregiver upon discharge - to improve, our physical therapists will perform initial evaluati on of pt's status upon admission and devise an individualized program for Caregiver Training Edema - to improve, our physical therapists will perform initial evaluation of pt's status upon admi ssion and devise an individualized program for Elevation Training, and Lymphedema Therapy New precaution - to improve, our physical therapists will perform initial evaluation of pt's status upon admission and devise an individualized program for Patient precaution education Poor balance - to improve, our physical therapists will perform initial evaluation of pt's status up on admission and devise an individualized program for Balance Training Weakness - to improve, our physical therapists will perform initial evaluation of pt's status upon a dmission and devise an individualized program for Aquatic Therapy, Neuromuscular Reeducation, and Str engthening Achieving independence - to improve, our physical therapists will perform initial evaluation of pt's status upon admission and devise an individualized program for Community Reintegration Activities - Occupational Therapy Cognitive deficits - to improve, our occupation therapists will perform initial evaluation of pt's s tatus upon admission and devise an individualized program for Cognition - orientation Need for child care sitter - to improve, our occupation therapists will perform initial evaluation of pt's status upon admission and devise an individualized program for Caregiver Training Weakness - to improve, our occupation therapists will perform initial evaluation of pt's status upon admission and devise an individualized program for Aquatic Therapy, Balance, Endurance, UE ROM, and UE strengthening - Other See attached MAR (Medication Administration Record) - Anterior Hip Precaution No abduction No active extension No adduction across midline No external rotation No hip flexion >90 degrees No internal rotation - Diet - Liquid Texture Continue Regular - Tube Feed Continue N/A - Diet Type Continue Regular - Posterior Hip Precaution No adduction across midline No external rotation No hip flexion >90 degrees No internal rotation No wheel chair propulsion - Weight Bearing Precaution WBAT,LEFT , LE - Skin care per protocol - Diet - Solid Texture Continue Regular - Shower allowing shower FUNCTIONAL STATUS: UPDATED AT WEEKLY TEAM CONFERENCE - Bladder Same accident frequency: 7-Ind - No accidents in the past 7 days - Bowel Same accident frequency: 7-Ind - No accidents in the past 7 days - Walking Same score based on distance walked: 0(N/A) Same score based on distance walked: 1(<=50ft) - Wheelchair Same score based on distance traveled: 0(N/A) FUNCTIONAL STATUS: - Self-Care A. Eating Ind B. Grooming Ind C. Bathing Mark D. Dressing - Upper Mark E. Dressing - Lower sup F. Toileting sup - Sphincter Control G. Bladder control Mark H. Bowel control Mark - Transfers Control I. Bed/Chair/Wheelchair Mark J. Toilet Mark K. Tub/Shower sup - Locomotion L. Walk/Wheelchair (B) Ind M. Stairs sup - Communication N. Comprehension (B) Mark O. Expression (B) Mark - Social Cognition P. Social Interaction Mark Q. Problem Solving Mark R. Memory Mark - Endurance Good - Balance Good - Safety Awareness Good QI SCORES: - Self-Care A. Eating 03-Partial/moderate assistance B. Oral hygiene 03-Partial/moderate assistance C. Toileting hygiene 01-Dependent E. Shower/bathe self 01-Dependent F. Upper body dressing 03-Partial/moderate assistance G. Lower body dressing 01-Dependent H. Putting on/taking off footwear 88-Not attempted due to medical condition or safety concerns - Mobility A. Roll left and right 03-Partial/moderate assistance B. Sit to lying 03-Partial/moderate assistance C. Lying to sitting on side of bed 03-Partial/moderate assistance D. Sit to stand 03-Partial/moderate assistance E. Chair/rvq-tt-pveah transfer 03-Partial/moderate assistance F. Toilet transfer 02-Substantial/maximal assistance G. Car transfer 88-Not attempted due to medical condition or safety concerns I. Walk 10 feet 88-Not attempted due to medical condition or safety concerns J. Walk 50 feet with two turns 88-Not attempted due to medical condition or safety concerns K. Walk 150 feet 88-Not attempted due to medical condition or safety concerns L. Walking 10 feet on uneven surfaces 88-Not attempted due to medical condition or safety concerns M. 1 step (curb) 88-Not attempted due to medical condition or safety concerns N. 4 steps 88-Not attempted due to medical condition or safety concerns O. 12 steps 88-Not attempted due to medical condition or safety concerns P. Picking up object 88-Not attempted due to medical condition or safety concerns R. Wheel 50 feet with two turns 88-Not attempted due to medical condition or safety concerns S. Wheel 150 feet 88-Not attempted due to medical condition or safety concerns - Bladder and Bowel Bladder continence Bowel continence - Endurance Fair - Balance Fair - Safety Awareness Fair CURRENT [facility]. 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
[2020-03-25] MEDS: ATORVASTATIN 10 MG TAB PO SCH (21:03)
[2020-03-25] MEDS: MIRTAZAPINE 15 MG TAB PO SCH (21:03)
[2020-03-26] MEDS: carvediloL 12.5 MG TAB PO SCH (05:18)
[2020-03-26] MEDS: ENSURE HIGH PROTEIN 237 ML CAN PO SCH (08:00)
[2020-03-26] MEDS: ASPIRIN 81 MG CHEWABLE TABLET PO SCH (08:00)
[2020-03-26] MEDS: GABAPENTIN 100 MG CAP PO SCH (08:00)
[2020-03-26] MEDS: FUROSEMIDE 40 MG TABLET PO SCH (08:00)
[2020-03-26] MEDS: VALSARTAN 160 MG TAB PO SCH (08:00)
[2020-03-26] MEDS: FE SULF/FA/VIT B COMP & C TAB PO SCH (08:00)
[2020-03-26] MEDS: HYDRALAZINE HCL 25 MG TABLET PO SCH (08:00)
[2020-03-26] MEDS: SODIUM CHLORIDE 1 GM TAB PO SCH (08:00)
[2020-03-26] MEDS: FERROUS SULFATE 325 MG TAB PO SCH (08:00)
[2020-03-26] MEDS: cloNIDine HCL 0.1 MG TAB PO SCH ×2 (08:33→13:03)
--- NOTE | 2020-03-26 09:47 | P.RH.PN ---
Estimated Length of Stay: 9 Expected Discharge Date: 03/26/20 Discharge Disposition Plan: Home Family Support: Yes Security Analyst Goal: Mobility, Transfers, Self Care Vital Signs: Last Vital Signs Temp 99.9 F 03/26/20 07:00 Pulse 79 03/26/20 08:33 Resp 16 03/26/20 07:00 BP 137/63 03/26/20 08:33 Pulse Ox 93 03/26/20 07:00 Laboratory: Laboratory Last Values WBC 5.4 K/uL (4.3-10.9) D 03/25/20 05:55 RBC 2.75 M/uL (3.86-4.86) L 03/25/20 05:55 Hgb 8.4 g/dL (12.0-15.0) L 03/25/20 05:55 Hct 25.8 % (36.0-45.0) L 03/25/20 05:55 MCV 93.6 fL (80-100) 03/25/20 05:55 MCH 30.5 pg (27.0-35.0) 03/25/20 05:55 MCHC 32.6 g/dL (32.0-36.0) 03/25/20 05:55 RDW 14.5 % (12.1-15.2) 03/25/20 05:55 Plt Count 158 K/uL (152-406) 03/25/20 05:55 MPV 8.8 fL (7.6-11.3) 03/25/20 05:55 Neutrophils % 66.7 % (41.7-73.7) 03/25/20 05:55 Lymphocytes % 20.6 % (15.3-44.8) 03/25/20 05:55 Monocytes % 8.8 % (3.3-12.3) 03/25/20 05:55 Eosinophils % 3.1 % (0-4.4) 03/25/20 05:55 Basophils % 0.8 % (0-1.3) 03/25/20 05:55 Absolute Neutrophils 3.6 K/uL (1.8-8.0) 03/25/20 05:55 Absolute Lymphocytes 1.1 K/uL (0.7-4.9) 03/25/20 05:55 Absolute Monocytes 0.5 K/uL (0.1-1.3) 03/25/20 05:55 Absolute Eosinophils 0.2 K/uL (0-0.5) 03/25/20 05:55 Absolute Basophils 0.0 K/uL (0-0.5) 03/25/20 05:55 Sodium 136 mmol/L (136-145) 03/25/20 05:55 Potassium 4.5 mmol/L (3.5-5.1) 03/25/20 05:55 Chloride 104 mmol/L (98-107) 03/25/20 05:55 Carbon Dioxide 27 mmol/L (21-32) 03/25/20 05:55 BUN 34 mg/dL (7-18) H 03/25/20 05:55 Creatinine 1.40 mg/dL (0.55-1.3) H 03/25/20 05:55 Estimated GFR 36 mL/min (=/>90) L 03/25/20 05:55 Glucose 95 mg/dL (74-106) 03/25/20 05:55 Lactic Acid 1.4 mmol/L (0.4-2.0) 03/25/20 16:15 Calcium 8.4 mg/dL (8.5-10.1) L 03/25/20 05:55 Magnesium 1.9 mg/dL (1.8-2.4) D 03/25/20 05:55 Lactate Dehydrogenase Cancelled 03/25/20 16:00 Albumin 2.2 g/dL (3.4-5.0) L 03/25/20 05:55 Prealbumin 11.3 mg/dL (20-40) L 03/25/20 05:55 Procalcitonin 0.07 ng/mL (<0.050) H 03/25/20 16:15 Urine Color Yellow 03/25/20 09:30 Urine Appearance Cloudy 03/25/20 09:30 Urine pH 5.5 (5.0-7.0) 03/25/20 09:30 Ur Specific [place] 1.015 (1.005-1.030) 03/25/20 09:30 Glucose (UA)(Auto) Negative (NEG) 03/25/20 09:30 Urine Ketones Negative (NEG) 03/25/20 09:30 Urine Blood Negative (NEG) 03/25/20 09:30 Urine Nitrite Negative (NEG) 03/25/20 09:30 Urine Bilirubin Negative (NEG) 03/25/20 09:30 Urine Urobilinogen 1.0 mg/dL (0.2-1.0) 03/25/20 09:30 Ur Leukocyte Esterase Trace (NEG) H 03/25/20 09:30 Urine RBC None seen /HPF (NONE SEEN) 03/25/20 09:30 Urine WBC <5 /HPF (<5) 03/25/20 09:30 Ur Squamous Epith Cells >50 /HPF (NONE SEEN) H 03/25/20 09:30 Urine Bacteria >50 /HPF (<20) H 03/25/20 09:30 Urine Yeast Many (NONE SEEN) 03/19/20 00:20 Urine Culture Reflexed Not needed 03/25/20 09:30 Urine Total Protein Negative (NEG) 03/25/20 09:30 SARS-CoV-2 RNA (RT-PCR) Negative (NEGATIVE) 03/25/20 10:40 ABO/Rh A POSITIVE 03/22/20 07:47 Solid Phase Ab Screen Negative 03/22/20 07:47 Crossmatch See Detail 03/22/20 07:47 Weight: 165 lb Wound Present: No Closed Surgical Incision Present: No Negative Pressure Wound Therapy Present: No Physician Update: Labs reviewed and are stable. Her infection workup was negative. She has done very well with physical and occupational therapy. Negative COVID-19 testing. D/C home today with home health. Functional Improvement: pt has demonstrated consistent progress and has met her functional goals. pt is on track for her home discharge. 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 Please see the Rehabilitation Signature page for all necessary signatures.
[2020-03-26 14:52] VITALS: BP 156/70; TEMP 99.4
--- NOTE | 2020-04-09 15:38 | R.DS ---
DISCHARGE SUMMARY FACILITY [facility] MR# [id number] NAME MONTY PENALOZA ADDRESS [address] [place] [address] PHONE DATE OF 1935 AGE 84 SSN# [id number] GENDER Female DEXTERITY Right-handed MARITAL STATUS RACE Unknown race ENCOUNTER PHYSICIAN Dr. Caden Hayward M.D. REFERRING DOCTOR SWAPNA MANN MD REFERRING FACILITY [facility] PHYSICIAN NINI PANDYA MD DISCHARGE DIAGNOSIS: - Orthopaedic Disorders 08 - Bilateral Hip Fractures (08.12) LEFT HIP FRACTURE. 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 NURSING: - Shower allowing shower - Skin care per protocol PRECAUTIONS: - Anterior Hip Precaution No abduction No active extension No adduction across midline No external rotation No hip flexion >90 degrees No internal rotation - Posterior Hip Precaution No adduction across midline No external rotation No hip flexion >90 degrees No internal rotation No wheel chair propulsion - Weight Bearing Precaution WBAT,LEFT , LE ACTIVITIES OOB only with supervision THERAPIES: - Dietary and Nutrition Adequate Nutrition Nutritional Education Nutritional Supplements HISTORY OF PRESENT ILLNESS: Pt. is a 84 yo Right-handed female of unknown race.On 03/12/2020 she was admitted to [facility] ith diagnosis CLOSED DISPLACED FX OF LEFT FEMORAL NECK.Her impairment category is Orthopaedic Disorde rs 08 - Bilateral Hip Fractures (08.12).Her impairment category is Orthopaedic Disorders 08 - Left hip fracture 8.11.Pre-morbidly, Pt. was independent/mod-I in Safety Awareness, Social Cognition, and Self-Care; and she had good Sphincter Control, Transfers Control, and Endurance.Currently, she has d eficits of Locomotion, Safety Awareness, Balance, Social Cognition, and Transfers Control.Pt. is now referred to [facility] for acute in-patient rehabilitation in order to maximiz e patient's functional independence in activities of daily living, strength, ROM, and mobility.- Reha b Goal Patient has realistic goal of being discharged at assistance level 7-Ind to reside at Home with Fami ly/Relatives. cqulyn Moff is a 84 -year- old female that lives at home independently at home. She lives in a single story home with family help when needed. She has a history of HTN, HLD, chronic back pain 2/2 compression fracture, admitted for left hip fracture. Patient had closed displaced fracture of left femoral neck 03/12/20. The patient would most definitely benefit from acute inpatient rehab and has become severely debilitated and unable to live at her prior level of activity at home getting her stronger to be back living at home independently is our goal. It is reasonable and necessary for the patient to come to acute inpatient rehab for approximately 7-10 days in order to return to her prior level of care. She is now being transferred to [facility] Inpatient rehabilitation and is medically stable with relatively stable labs. She is now medically stable but in need of 24 hour nursing, doctor supervision and The patient is reasonably expected to participate in 3 hours of therapy a day/15 hours per week and receive care with intensive interdisciplinary approach. COVID-19 screening performed; spoke with patient via phone. Patient denies new onset of fever, cough, difficulty breathing, sore throat, body aches and non-allergy nasal congestion in the past 24 hours. Patient denies travel outside of [place] in the past 14 days. Patient denies any contact with someone who has a confirmed diagnosis of or is under investigation for COVID-19 in the past 14 days. Patient has been tested negative for COVID- 19.HOSPITAL COURSE: ANTERIOR HIP PRECAUTION: On 03/18/2020 the following precautions were added for the patient: Anterior Hip Precaution - No inte rnal rotation, Anterior Hip Precaution - No adduction across midline, Anterior Hip Precaution - No ac tive extension, Anterior Hip Precaution - No abduction, Anterior Hip Precaution - No hip flexion >90 degrees, and Anterior Hip Precaution - No external rotation. On 03/23/2020 the following precautions were added for the patient: Anterior Hip Precaution - No abd uction, Anterior Hip Precaution - No active extension, Anterior Hip Precaution - No adduction acros s midline, Anterior Hip Precaution - No external rotation, Anterior Hip Precaution - No hip flexion >90 degrees, and Anterior Hip Precaution - No internal rotation. The following precautions were removed for the patient: Anterior Hip Precaution - No abduction, Anter ior Hip Precaution - No active extension, Anterior Hip Precaution - No adduction across midline, Ante rior Hip Precaution - No external rotation, Anterior Hip Precaution - No hip flexion >90 degrees, Ant erior Hip Precaution - No internal rotation, Anterior Hip Precaution - No abduction, Anterior Hip Pr ecaution - No active extension, Anterior Hip Precaution - No adduction across midline, Anterior Hip Precaution - No external rotation, Anterior Hip Precaution - No hip flexion >90 degrees, and Anter ior Hip Precaution - No internal rotation. On 03/18/2020 the following precautions were added for the patient: Posterior Hip Precaution - No int ernal rotation, Posterior Hip Precaution - No adduction across midline, Posterior Hip Precaution - No hip flexion >90 degrees, Posterior Hip Precaution - No wheel chair propulsion, and Posterior Hip Pre caution - No external rotation. On 03/23/2020 the following precautions were added for the patient: Posterior Hip Precaution - No ad duction across midline, Posterior Hip Precaution - No external rotation, Posterior Hip Precaution - No hip flexion >90 degrees, Posterior Hip Precaution - No internal rotation, and Posterior Hip Prec aution - No wheel chair propulsion. The following precautions were removed for the patient: Posterior Hip Precaution - No adduction acros s midline, Posterior Hip Precaution - No external rotation, Posterior Hip Precaution - No hip flexion >90 degrees, Posterior Hip Precaution - No internal rotation, Posterior Hip Precaution - No wheel ch air propulsion, Posterior Hip Precaution - No adduction across midline, Posterior Hip Precaution - No external rotation, Posterior Hip Precaution - No hip flexion >90 degrees, Posterior Hip Precautio n - No internal rotation, and Posterior Hip Precaution - No wheel chair propulsion. On 03/18/2020 the following precautions were added for the patient: Weight Bearing Precaution - WBAT, LEFT , LE. On 03/19/2020 the following precautions were added for the patient: Weight Bearing Precaution - WBAT ,LEFT , LE. On 03/23/2020 the following precautions were removed for the patient: Weight Bearing Precaution - WB AT,LEFT , LE. On 03/24/2020 the following precautions were added for the patient: Weight Bearing Precaution - WBAT ,LEFT , LE. DIET - LIQUID TEXTURE: On 03/18/2020 Pt was upgraded to Regular Diet - Liquid Texture. DIET - SOLID TEXTURE: On 03/18/2020 Pt was upgraded to Regular Diet - Solid Texture. DIET TYPE: On 03/18/2020 Pt was upgraded to Regular Diet Type. POSTERIOR HIP PRECAUTION: TUBE FEED: On 03/18/2020 Pt was changed to N/A Tube Feed. WEIGHT BEARING PRECAUTION: DISCHARGE PHYSICAL EXAM - Gen Alert and awake Lying in bed No apparent distress Oriented to: person, time, and place - Skin No skin breakdown. Normacephalic - Eyes No abnormalities - Neck No abnormalities - CVS RRR - Chest No abnormalities - Resp No wheezing - Abd +bowel sounds - GI Non distended Deferred - No abnormalities - Ext Mild left lower extremity edema. - MSK 4+/5 weakness in left lower extremity - Neuro 4/5 strength left lower extremity. - Psych No abnormalities FUNCTIONAL STATUS: - Self-Care A. Eating 7-Ind B. Grooming 7-Ind C. Bathing 6-Mark D. Dressing - Upper 6-Mark E. Dressing - Lower 6-Mark F. Toileting 6-Mark - Sphincter Control G. Bladder control 6-Mark H. Bowel control 6-Mark - Transfers Control I. Bed/Chair/Wheelchair 6-Mark J. Toilet 6-Mark K. Tub/Shower 6-Mark - Locomotion L. Walk/Wheelchair (B) 7-Ind M. Stairs 6-Mark - Communication N. Comprehension (B) 6-Mark O. Expression (B) 6-Mark - Social Cognition P. Social Interaction 6-Mark Q. Problem Solving 6-Mark R. Memory 6-Mark - Endurance Good - Balance Good - Safety Awareness Good QI SCORES: - Self-Care A. Eating 03-Partial/moderate assistance B. Oral hygiene 03-Partial/moderate assistance C. Toileting hygiene 01-Dependent E. Shower/bathe self 01-Dependent F. Upper body dressing 03-Partial/moderate assistance G. Lower body dressing 01-Dependent H. Putting on/taking off footwear 88-Not attempted due to medical condition or safety concerns - Mobility A. Roll left and right 03-Partial/moderate assistance B. Sit to lying 03-Partial/moderate assistance C. Lying to sitting on side of bed 03-Partial/moderate assistance D. Sit to stand 03-Partial/moderate assistance E. Chair/lvj-[id number] transfer 03-Partial/moderate assistance F. Toilet transfer 02-Substantial/maximal assistance G. Car transfer 88-Not attempted due to medical condition or safety concerns I. Walk 10 feet 88-Not attempted due to medical condition or safety concerns J. Walk 50 feet with two turns 88-Not attempted due to medical condition or safety concerns K. Walk 150 feet 88-Not attempted due to medical condition or safety concerns L. Walking 10 feet on uneven surfaces 88-Not attempted due to medical condition or safety concerns M. 1 step (curb) 88-Not attempted due to medical condition or safety concerns N. 4 steps 88-Not attempted due to medical condition or safety concerns O. 12 steps 88-Not attempted due to medical condition or safety concerns P. Picking up object 88-Not attempted due to medical condition or safety concerns R. Wheel 50 feet with two turns 88-Not attempted due to medical condition or safety concerns S. Wheel 150 feet 88-Not attempted due to medical condition or safety concerns - Bladder and Bowel Bladder continence Bowel continence - Endurance Fair - Balance Fair - Safety Awareness Fair DISCHARGE INSTRUCTIONS: - N/A Aspirin 81 mg daily, Lovenox 40 mg sq daily. DISCHARGE PLAN, FOLLOW UP CARE PROVISIONS: - Estimated Length of Stay (days) 14. - Consensus on plan Discharge plan has been discussed with primary caregiver. Patient/Family is in agreement with the myrna n. Primary caregiver is in agreement with the plan. - Patient/Family Goals Return home independently. - Planned Living Setting Upon Discharge Home, to live with Family/Relatives. Transitional Living. 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
== END 2020-03-26 14:20 | disposition home health service (06) | DRG 561 ==
LOC: 5TH 03-18 19:50
PROVIDERS: ADMIT Psychiatry & Neurology Neurology with Special Qualifications in Child Neurology; ATTEND Psychiatry & Neurology Neurology with Special Qualifications in Child Neurology
DX: S72.002D Fracture of unspecified part of neck of left femur, subsequent encounter for closed fracture with routine healing (principal); I10 Essential (primary) hypertension; E78.5 Hyperlipidemia, unspecified; I25.2 Old myocardial infarction; Z90.710 Acquired absence of both cervix and uterus; Z88.8 Allergy status to other drugs, medicaments and biological substances; Z20.822 Contact with and (suspected) exposure to COVID-19
CPT/HCPCS: 36415; 71045; 80048; 81001; 81003; 81015; 82040; 82274; 83605; 83735; 84134; 84145; 85014; 85018; 85025; 86850; 86900; 86901; 87040; 87086; 87088; 97110; 97116; 97161; 97530; 97542; J1650; J7050; P9016; U0003